=== PATIENT | female | born 1985 | race Caucasian/White ===

== ENCOUNTER → 2018-06-15 10:03 | Outpatient (CLI) | payer BC, SELFPAY ==
[2018-06-15 11:11] LABS: EXAGEN MAILED SPECIMEN
[2018-06-15 12:25] LABS: Erythrocyte Sedimentation Rate 3 mm/hr (0-20)
[2018-06-15 12:28] LABS: Absolute Neutrophil Count 1.7 X10^3/uL (2.0-7.7); Basophil# 0.02 X10^3/uL; Basophil% 0.5 % (0-1); Color, Urine Yellow (Yellow); Eosinophil# 0.07 X10^3/uL; Eosinophils% 1.8 % (0-5); Glucose, Dipstick Normal (Normal); Hematocrit 40.7 % (37-47); Hemoglobin 13.7 g/dl (12.0-15.0); Ketone-Dipstick Negative (Negative); Leukocyte Esterase-Dipstick Negative /ul (Negative); Lymphocyte % 49.7 % (19-41); Mean Corp Hgb Conc 33.7 g/gl (32-36); Mean Corpuscular Hgb 29.5 pg (27.0-32.0); Mean Corpuscular Volume 87.7 fL (81-99); Mean Platelet Vol. 11.1 fl (6.2-12.0); Monocyte# 0.18 X10^3/uL; Monocyte% 4.7 % (0-10); Neutrophil # 1.65 X10^3/uL (2.7-7.7); Neutrophil % 43.3 % (47-70); Nitrite-Dipstick Negative (Negative); Occult Blood-Urine Negative /ul (Negative); Platelet Count 238 K/mm3 (150-450); Protein-Dipstick Negative (Negative); RBC Distribution Width CV 12.7 % (11.6-14.6); RBC Distribution Width SD 40.5 fl (35.1-43.9); Red Blood Count 4.64 M/mm3 (4.2-5.4); Urine Bilirubin Dipstick Negative (Negative); Urine Clarity Clear (Clear); Urine Urobilinogen Normal (Normal); White Blood Count 3.8 K/mm3 (4.4-11.0)
[2018-06-15 12:37] LABS: POSITIVE COUNT NO; POSITIVE DIFFERENTIAL NO; POSITIVE MORPHOLOGY NO
[2018-06-15 12:38] LABS: AST(SGOT) 12 U/L (15-37); Alanine Aminotransfer ALT/SGPT 20 U/L (13-56); Albumin, Serum 4.1 g/dL (3.2-5.0); Alkaline Phosphatase 64 U/L (45-117); Anion Gap 9 (5-15); BUN 11 mg/dL (7-18); BUN/Creat Ratio 14.1 RATIO (10-20); Chloride 105 mmol/L (98-107); Creatinine, Serum 0.78 mg/dL (0.55-1.02); EST Glomerular Filtration Rate 91 mL/min (>60); Est Glom Filt Rate - Afr Amer 110 mL/min (>60); Globulin 4.1 g/dL (2.2-4.2); Glucose 99 mg/dL (74-106); Potassium 3.8 mmol/L (3.5-5.1); Protein, Total 8.2 g/dL (6.4-8.2); Sodium Level 139 mmol/L (136-145)
[2018-06-15 12:58] LABS: Protein, Urine (Random) < 6.0 mg/dL (<11.9)
[2018-06-16 11:49] LABS: HEPATITIS B SURFACE AG Negative (Negative); Hep B Surface Antibodies Reactive (.); Hep C Antibodies <0.1 s/co ratio (0.0-0.9)
== END ==
PROVIDERS: Referring Provider Internal Medicine Rheumatology; Visit Provider Internal Medicine Rheumatology
DX: M06.4 Inflammatory polyarthropathy (principal); R76.8 Other specified abnormal immunological findings in serum; K58.9 Irritable bowel syndrome, unspecified
CPT/HCPCS: 36415; 80053; 81002; 82570; 84156; 85025; 85652; 86706; 86803; 87340

== ENCOUNTER → 2018-10-09 | Outpatient (CLI) | payer BC, SELFPAY ==
[2017-04-16 11:21] VITALS: BMI 21.2
[2018-10-09 08:03] LABS: Absolute Lymphocyte Count 2.13 X10^3/ul (0.83-4.51); Absolute Neutrophil Count 1.7 X10^3/uL (2.0-7.7); Basophil# 0.02 X10^3/uL; Basophil% 0.5 % (0-1); Eosinophil# 0.14 X10^3/uL; Eosinophils% 3.3 % (0-5); Hematocrit 41.1 % (37-47); Lymphocyte # 2.13 X10^3/ul (4.0); Lymphocyte % 49.7 % (19-41); Mean Corp Hgb Conc 34.1 g/gl (32-36); Mean Corpuscular Hgb 29.9 pg (27.0-32.0); Mean Corpuscular Volume 87.8 fL (81-99); Mean Platelet Vol. 11.1 fl (6.2-12.0); Monocyte# 0.29 X10^3/uL; Monocyte% 6.8 % (0-10); Neutrophil # 1.71 X10^3/uL (2.7-7.7); Neutrophil % 39.7 % (47-70); Platelet Count 202 K/mm3 (150-450); RBC Distribution Width CV 12.8 % (11.6-14.6); RBC Distribution Width SD 40.7 fl (35.1-43.9); Red Blood Count 4.68 M/mm3 (4.2-5.4); White Blood Count 4.3 K/mm3 (4.4-11.0)
[2018-10-09 08:09] LABS: POSITIVE COUNT NO; POSITIVE DIFFERENTIAL NO; POSITIVE MORPHOLOGY NO
[2018-10-09 08:36] LABS: ALB/GLOB Ratio 1.1 RATIO (0.9-2.4); AST(SGOT) 13 U/L (15-37); Alanine Aminotransfer ALT/SGPT 17 U/L (13-56); Alkaline Phosphatase 43 U/L (45-117); Anion Gap 4 (5-15); BUN 11 mg/dL (7-18); BUN/Creat Ratio 12.5 RATIO (10-20); Chloride 109 mmol/L (98-107); Creatinine, Serum 0.88 mg/dL (0.55-1.02); EST Glomerular Filtration Rate 79 mL/min (>60); Est Glom Filt Rate - Afr Amer 95 mL/min (>60); Globulin 3.7 g/dL (2.2-4.2); Glucose 90 mg/dL (74-106); Potassium 4.3 mmol/L (3.5-5.1); Protein, Total 7.7 g/dL (6.4-8.2); Sodium Level 139 mmol/L (136-145)
== END | disposition home or self-care (01) ==
LOC: LAB 07:08
PROVIDERS: Referring Provider Internal Medicine Rheumatology; Visit Provider Internal Medicine Rheumatology
DX: M06.4 Inflammatory polyarthropathy (principal); R76.8 Other specified abnormal immunological findings in serum; K58.9 Irritable bowel syndrome, unspecified
CPT/HCPCS: 36415; 80053; 85025

== ENCOUNTER → 2019-04-04 07:19 | Outpatient (CLI) | payer BC, SELFPAY ==
[2019-04-04 10:06] LABS: Absolute Lymphocyte Count 1.29 X10^3/uL (0.83-4.51); Absolute Neutrophil Count 1.8 X10^3/uL (2.0-7.7); Basophil# 0.02 X10^3/uL; Basophil% 0.6 % (0-1); Eosinophil# 0.14 X10^3/uL; Eosinophils% 3.9 % (0-5); Hematocrit 42.8 % (37-47); Hemoglobin 14.3 g/dL (12.0-15.0); Lymphocyte # 1.29 X10^3/ul (4.0); Lymphocyte % 35.5 % (19-41); Mean Corp Hgb Conc 33.4 g/dL (32-36); Mean Corpuscular Hgb 30.3 pg (27.0-32.0); Mean Corpuscular Volume 90.7 fL (81-99); Mean Platelet Vol. 11.7 fl (6.2-12.0); Monocyte# 0.35 X10^3/uL; Monocyte% 9.6 % (0-10); NRBC Flagged by Analyzer 0 % (0-5); Neutrophil # 1.82 X10^3/uL (2.7-7.7); Neutrophil % 50.1 % (47-70); Platelet Count 198 K/mm3 (150-450); RBC Distribution Width SD 40.5 fl (35.1-43.9); Red Blood Count 4.72 M/mm3 (4.2-5.4); White Blood Count 3.6 K/mm3 (4.4-11.0)
[2019-04-04 10:19] LABS: ALB/GLOB Ratio 1.1 RATIO (0.9-2.4); AST(SGOT) 13 U/L (15-37); Alanine Aminotransfer ALT/SGPT 15 U/L (13-56); Albumin, Serum 3.9 g/dL (3.2-5.0); Alkaline Phosphatase 55 U/L (45-117); Anion Gap 4 (5-15); BUN 9 mg/dL (7-18); BUN/Creat Ratio 11.2 RATIO (10-20); Calcium,Total 9.1 mg/dL (8.5-10.1); Chloride 108 mmol/L (98-107); EST Glomerular Filtration Rate 88 mL/min (>60); Est Glom Filt Rate - Afr Amer 106 mL/min (>60); Globulin 3.6 g/dL (2.2-4.2); Glucose 86 mg/dL (74-106); Potassium 4.4 mmol/L (3.5-5.1); Protein, Total 7.5 g/dL (6.4-8.2); Sodium Level 140 mmol/L (136-145)
== END ==
PROVIDERS: Referring Provider Internal Medicine Rheumatology; Visit Provider Internal Medicine Rheumatology
DX: M06.4 Inflammatory polyarthropathy (principal); R76.8 Other specified abnormal immunological findings in serum; K58.9 Irritable bowel syndrome, unspecified
CPT/HCPCS: 36415; 80053; 85025

== ENCOUNTER → 2019-07-05 15:32 | Outpatient (CLI) | payer BC, SELFPAY ==
[2017-04-16 11:21] VITALS: BMI 21.2
[2019-07-05 17:40] LABS: Absolute Lymphocyte Count 1.71 X10^3/uL (0.83-4.51); Absolute Neutrophil Count 3.5 X10^3/uL (2.0-7.7); Basophil# 0.05 X10^3/uL; Basophil% 0.9 % (0-1); Eosinophil# 0.09 X10^3/uL; Eosinophils% 1.6 % (0-5); Hematocrit 41.7 % (37-47); Hemoglobin 13.8 g/dL (12.0-15.0); Lymphocyte # 1.71 X10^3/ul (4.0); Lymphocyte % 29.7 % (19-41); Mean Corp Hgb Conc 33.1 g/dL (32-36); Mean Corpuscular Hgb 30.1 pg (27.0-32.0); Mean Corpuscular Volume 90.8 fL (81-99); Mean Platelet Vol. 11.7 fl (6.2-12.0); Monocyte# 0.37 X10^3/uL; Monocyte% 6.4 % (0-10); NRBC Flagged by Analyzer 0 % (0-5); Neutrophil # 3.53 X10^3/uL (2.7-7.7); Neutrophil % 61.2 % (47-70); Platelet Count 241 K/mm3 (150-450); RBC Distribution Width CV 12.5 % (11.6-14.6); RBC Distribution Width SD 41.1 fl (35.1-43.9); Red Blood Count 4.59 M/mm3 (4.2-5.4); White Blood Count 5.8 K/mm3 (4.4-11.0)
[2019-07-05 17:55] LABS: ALB/GLOB Ratio 1.1 RATIO (0.9-2.4); AST(SGOT) 10 U/L (15-37); Alanine Aminotransfer ALT/SGPT 17 U/L (13-56); Albumin, Serum 4.1 g/dL (3.2-5.0); Alkaline Phosphatase 57 U/L (45-117); Anion Gap 4 (5-15); BUN 13 mg/dL (7-18); Calcium,Total 9.1 mg/dL (8.5-10.1); Chloride 108 mmol/L (98-107); Creatinine, Serum 0.81 mg/dL (0.55-1.02); EST Glomerular Filtration Rate 86 mL/min (>60); Est Glom Filt Rate - Afr Amer 104 mL/min (>60); Globulin 3.8 g/dL (2.2-4.2); Glucose 82 mg/dL (74-106); Potassium 4.4 mmol/L (3.5-5.1); Protein, Total 7.9 g/dL (6.4-8.2); Sodium Level 141 mmol/L (136-145)
== END ==
PROVIDERS: Referring Provider Internal Medicine Rheumatology; Visit Provider Internal Medicine Rheumatology
DX: M06.4 Inflammatory polyarthropathy (principal); R76.8 Other specified abnormal immunological findings in serum; K58.9 Irritable bowel syndrome, unspecified
CPT/HCPCS: 36415; 80053; 85025

== ENCOUNTER → 2019-09-15 07:04 | Outpatient (CLI) | payer BC, SELFPAY ==
[2017-04-16 11:21] VITALS: BMI 21.2
[2019-09-15 09:50] LABS: Absolute Lymphocyte Count 2.45 X10^3/uL (0.83-4.51); Absolute Neutrophil Count 1.6 X10^3/uL (2.0-7.7); Basophil# 0.05 X10^3/uL; Basophil% 1.1 % (0-1); Eosinophil# 0.12 X10^3/uL; Eosinophils% 2.6 % (0-5); Hematocrit 40.2 % (37-47); Hemoglobin 13.7 g/dL (12.0-15.0); Lymphocyte # 2.45 X10^3/ul (4.0); Lymphocyte % 53.6 % (19-41); Mean Corp Hgb Conc 34.1 g/dL (32-36); Mean Platelet Vol. 11.3 fl (6.2-12.0); Monocyte# 0.36 X10^3/uL; Monocyte% 7.9 % (0-10); NRBC Flagged by Analyzer 0 % (0-5); Neutrophil # 1.58 X10^3/uL (2.7-7.7); Neutrophil % 34.6 % (47-70); Platelet Count 200 K/mm3 (150-450); RBC Distribution Width CV 12.3 % (11.6-14.6); RBC Distribution Width SD 40.3 fl (35.1-43.9); Red Blood Count 4.42 M/mm3 (4.2-5.4); White Blood Count 4.6 K/mm3 (4.4-11.0)
== END ==
DX: D70.8 Other neutropenia (principal)
CPT/HCPCS: 36415; 85025

== ENCOUNTER → 2019-11-22 07:00 | Outpatient (CLI) | payer BC, SELFPAY ==
[2019-11-13 08:25] VITALS: BMI 21.2
[2019-11-22 10:05] LABS: Absolute Lymphocyte Count 2.17 X10^3/uL (0.83-4.51); Absolute Neutrophil Count 1.9 X10^3/uL (2.0-7.7); Basophil# 0.05 X10^3/uL; Basophil% 1.1 % (0-1); Eosinophil# 0.15 X10^3/uL; Eosinophils% 3.2 % (0-5); Hematocrit 41.3 % (37-47); Hemoglobin 13.5 g/dL (12.0-15.0); Lymphocyte # 2.17 X10^3/ul (4.0); Lymphocyte % 46.5 % (19-41); Mean Corp Hgb Conc 32.7 g/dL (32-36); Mean Corpuscular Hgb 30.3 pg (27.0-32.0); Mean Corpuscular Volume 92.8 fL (81-99); Mean Platelet Vol. 11.6 fl (6.2-12.0); Monocyte# 0.36 X10^3/uL; Monocyte% 7.7 % (0-10); NRBC Flagged by Analyzer 0 % (0-5); Neutrophil # 1.94 X10^3/uL (2.7-7.7); Neutrophil % 41.5 % (47-70); Platelet Count 257 K/mm3 (150-450); RBC Distribution Width CV 12.2 % (11.6-14.6); RBC Distribution Width SD 41.6 fl (35.1-43.9); Red Blood Count 4.45 M/mm3 (4.2-5.4); White Blood Count 4.7 K/mm3 (4.4-11.0)
== END ==
PROVIDERS: PCP Family Medicine
DX: D70.8 Other neutropenia (principal)
CPT/HCPCS: 36415; 85025

== ENCOUNTER → 2019-11-29 07:03 | Outpatient (CLI) | payer BC, SELFPAY ==
[2019-11-13 08:25] VITALS: BMI 21.2
[2019-11-29 09:55] LABS: Absolute Neutrophil Count 1.7 X10^3/uL (2.0-7.7); Basophil# 0.05 X10^3/uL; Basophil% 1.2 % (0-1); Eosinophil# 0.14 X10^3/uL; Eosinophils% 3.3 % (0-5); Hematocrit 41.1 % (37-47); Hemoglobin 13.6 g/dL (12.0-15.0); Lymphocyte % 47.6 % (19-41); Mean Corp Hgb Conc 33.1 g/dL (32-36); Mean Corpuscular Hgb 30.7 pg (27.0-32.0); Mean Corpuscular Volume 92.8 fL (81-99); Mean Platelet Vol. 11.5 fl (6.2-12.0); Monocyte# 0.27 X10^3/uL; Monocyte% 6.4 % (0-10); NRBC Flagged by Analyzer 0 % (0-5); Neutrophil # 1.73 X10^3/uL (2.7-7.7); Neutrophil % 41.3 % (47-70); Platelet Count 248 K/mm3 (150-450); RBC Distribution Width CV 12.5 % (11.6-14.6); RBC Distribution Width SD 42.5 fl (35.1-43.9); Red Blood Count 4.43 M/mm3 (4.2-5.4); White Blood Count 4.2 K/mm3 (4.4-11.0)
== END ==
PROVIDERS: PCP Family Medicine
DX: D70.8 Other neutropenia (principal)
CPT/HCPCS: 36415; 85025

== ENCOUNTER → 2019-12-06 16:36 | Outpatient (CLI) | payer BC, SELFPAY ==
[2019-11-13 08:25] VITALS: BMI 21.2
[2019-12-06 18:01] LABS: Absolute Lymphocyte Count 2.03 X10^3/uL (0.83-4.51); Absolute Neutrophil Count 2.3 X10^3/uL (2.0-7.7); Basophil# 0.04 X10^3/uL; Basophil% 0.8 % (0-1); Eosinophil# 0.15 X10^3/uL; Eosinophils% 3.1 % (0-5); Hematocrit 39.7 % (37-47); Hemoglobin 13.2 g/dL (12.0-15.0); Lymphocyte # 2.03 X10^3/ul (4.0); Lymphocyte % 42.5 % (19-41); Mean Corp Hgb Conc 33.2 g/dL (32-36); Mean Corpuscular Hgb 30.4 pg (27.0-32.0); Mean Corpuscular Volume 91.5 fL (81-99); Mean Platelet Vol. 11.5 fl (6.2-12.0); Monocyte# 0.27 X10^3/uL; Monocyte% 5.6 % (0-10); NRBC Flagged by Analyzer 0 % (0-5); Neutrophil # 2.29 X10^3/uL (2.7-7.7); Platelet Count 258 K/mm3 (150-450); RBC Distribution Width CV 12.3 % (11.6-14.6); RBC Distribution Width SD 40.7 fl (35.1-43.9); Red Blood Count 4.34 M/mm3 (4.2-5.4); White Blood Count 4.8 K/mm3 (4.4-11.0)
== END ==
PROVIDERS: PCP Family Medicine
DX: D70.8 Other neutropenia (principal)
CPT/HCPCS: 36415; 85025

== ENCOUNTER → 2020-11-06 13:15 | Outpatient (CLI) | payer BC, SELFPAY ==
[2019-11-13 08:25] VITALS: BMI 21.2
--- NOTE | 2020-11-06 13:45 | MRI_ITS ---
STUDY: MRI THORACIC SPINE WITHOUT CONTRAST REASON FOR EXAM: Female, 35 years old. DEGENERATION THORACIC,NEURITIS,SPONDYLOSIS TECHNIQUE: Standardized fat and water weighted pulse sequences were obtained in the sagittal and axial planes. COMPARISON: None. FINDINGS: Normal kyphosis of the thoracic spine. There is no substantial scoliosis. T1-2, T2-3, T3-4, T4-5, T5-6, T6-7, T7-8, T8-9, T9-10, T10-11, T11-12: Normal endplates. Normal disc hydration, heights and morphology of the corresponding intervertebral discs. Normal central canal and intervertebral neural foramina at the corresponding levels. Normal visualized thoracic cord. Normal conus medullaris that terminates at the . 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 Correlation with thyroid ultrasound is recommended. MRI/Spine Thoracic (Routine) IMPRESSION: 1. Normal unenhanced MRI examination of the thoracic spine. 2. 2.5 cm mass possibly of the left lobe of the thyroid gland and correlation with thyroid ultrasound is recommended. Electronically Signed: Eamon Lockwood MD at 10:45 EDT Tel , Service support ,
== END ==
PROVIDERS: PCP Family Medicine; Referring Provider Nurse Practitioner Family; Visit Provider Nurse Practitioner Family
DX: M51.34 Other intervertebral disc degeneration, thoracic region (principal); M54.14 Radiculopathy, thoracic region; M47.814 Spondylosis without myelopathy or radiculopathy, thoracic region
CPT/HCPCS: 72146

== ENCOUNTER → 2021-04-01 15:15 | Outpatient (CLI) | payer BC, SELFPAY ==
--- NOTE | 2021-04-01 15:35 | RAD_ITS ---
STUDY: X-RAY - PELVIS AND RIGHT HIP REASON FOR EXAM: Female, 35 years old. Pain. TECHNIQUE: 3 views of the pelvis and hip. COMPARISON: None. FINDINGS: There is a non-specific bowel gas pattern. Normal visualized soft tissue structures. Normal bilateral iliac wings, sacroiliac joints and visualized sacrum. Normal bilateral superior and inferior pubic rami. Normal pubic symphysis. Normal bilateral ischial tuberosities. Normal visualized femoral head. Normal acetabulum. Normal hip joint. RAD/HIP, UNI W/ Pelvis 2-3 Views IMPRESSION: Normal x-ray examination of the pelvis and hip. Electronically Signed: Juarez Shah MD at 10:54 EST , Service support ,
== END ==
PROVIDERS: PCP Family Medicine; Referring Provider Nurse Practitioner Family; Visit Provider Nurse Practitioner Family
DX: M25.551 Pain in right hip (principal)
CPT/HCPCS: 73502

== ENCOUNTER 2021-07-05 13:20 | Outpatient (CLI) | payer BC, SELFPAY ==
--- NOTE | 2021-07-05 13:25 | MRI_ITS ---
EXAM: MR RIGHT LOWER EXTREMITY WITHOUT INTRAVENOUS CONTRAST, HIP CLINICAL INDICATION: PAIN IN RIGHT HIP JOINT-lateral,NKI TECHNIQUE: Multiplanar and multisequence MR images of the right hip without intravenous contrast. This report was created using [employer] report generation technology. COMPARISON: xr Apr 01 2021 3:38pm FINDINGS: TENDONS: FLEXORS: Unremarkable. Intact. EXTENSORS/HAMSTRING: Unremarkable. Intact. ABDUCTORS: Unremarkable. Intact. ADDUCTORS: Unremarkable. Intact. ROTATORS: Unremarkable. Intact. MUSCLES: Unremarkable. Normal bulk and signal. FLUID: Unremarkable. No joint effusion. No trochanteric bursitis. LABRUM: Unremarkable. No evidence of a tear on this non-arthrogram exam. CARTILAGE: Unremarkable. Articular cartilage intact. BONES/JOINTS: There are no acute findings of the right hip. No femoral neck fracture. No avascular necrosis of the femoral head. No sacral insufficiency fracture. No suspicious bone marrow signal alteration. OTHER SOFT TISSUES: Unremarkable. INTRAPERITONEAL SPACE: There is trace free fluid in the pelvis. This can be physiologic. REPRODUCTIVE: The uterus is normal in appearance. MRI/Lower Ext Joint Only (Routine) IMPRESSION: 1. There is trace free fluid in the pelvis. This can be physiologic. 2. There are no acute findings of the right hip. Electronically Signed: Ryder Lieberman MD at 17:12 EST Reading Location ID and State: [facility] / [place] , Service support ,
== END 2021-07-05 23:59 | disposition home or self-care (01) ==
PROVIDERS: PCP Family Medicine; Referring Provider Nurse Practitioner Family; Visit Provider Nurse Practitioner Family
DX: M25.551 Pain in right hip (principal)
CPT/HCPCS: 73721

== ENCOUNTER → 2024-05-24 | Outpatient (CLI) | payer BC, SELFPAY ==
--- NOTE | 2024-05-24 09:29 | BI_ITS ---
MAMMOGRAPHY - BILATERAL DIAGNOSTIC REASON FOR EXAM: Female, 38 years old. Left retroareolar breast pain. PERTINENT HISTORY: Non-contributory. TECHNIQUE: Digital bilateral breast viktoria (3D mammographic acquisition) in the CC and MLO projections. 2-D mediolateral oblique (MLO) and craniocaudad (CC) views of both breasts were obtained. CAD: Full Field Digital Mammography with Computer Added Detection was performed. COMPARISON: None. Baseline examination. FINDINGS: Breast Composition: The breasts are extremely dense, which lowers the sensitivity of mammography. There are no dominant masses or suspicious calcifications. There is a densely calcified 4.5 mm nodule in the upper lateral aspect of the right breast most likely representing a fibroadenoma. Asymmetry of breast tissue is seen in the deep lateral view of the right breast on the craniocaudad projection. No other significant abnormalities are identified. BI/DIAG MAMM W/CAD, BILAT IMPRESSION: Negative diagnostic mammogram. With the patient''s history of a left retroareolar pain, targeted sonographic correlation recommended. Asymmetry of breast tissue seen in the deep lateral aspect of the right breast on the craniocaudad view. Correlation with ultrasound is recommended as well. ASSESSMENT CATEGORY: BIRADS Category 0: Incomplete. Need additional imaging evaluation. A letter regarding these results will be sent to the patient by the facility within 30 days. Approximately 10% of breast cancers are not detected by mammography. A normal mammogram should not delay biopsy of a clinically suspicious abnormality. Electronically Signed: Ramon Muse MD at 10:17 EST ,
--- NOTE | 2024-05-24 09:29 | US_ITS ---
STUDY: ULTRASOUND BREAST - LEFT REASON FOR EXAM: Female, 38 years old. Left breast pain. TECHNIQUE: Axial and longitudinal images of the LEFT breast were performed with a high resolution ultrasound transducer. # OF IMAGES: 33 COMPARISON: Comparison is made with prior mammogram done earlier in the day. FINDINGS: LEFT Breast: The upper lateral aspect of the left breast was examined with ultrasound. No sonographic abnormality is seen. IMPRESSION: No sonographic abnormality is seen. ASSESSMENT CATEGORY: BIRADS Category 1: Negative. A letter regarding these results will be sent to the patient by the facility within 30 days. Electronically Signed: Ramon Muse MD at 14:51 EST , STUDY: ULTRASOUND BREAST - RIGHT REASON FOR EXAM: Female, 38 years old. Asymmetry of breast tissue in the lateral the portion of the right breast. TECHNIQUE: Axial and longitudinal images of the RIGHT breast were performed with a high resolution ultrasound transducer. # OF IMAGES: 33 COMPARISON: Comparison is made with prior mammogram done earlier today. FINDINGS: RIGHT Breast: The lateral aspect of the right breast was examined with ultrasound. There is a 4 mm x 4 mm x 3 mm calcified cyst at the 10:00 position of the breast at 3 cm from the nipple. US/Breast Limited Unilateral IMPRESSION: 4 mm x 4 mm x 3 mm calcified cyst at the 10:00 position of the breast at 3 cm from the nipple. ASSESSMENT CATEGORY: BIRADS Category 2: Benign. A letter regarding these results will be sent to the patient by the facility within 30 days. Electronically Signed: Ramon Muse MD at 14:52 EST ,
== END | disposition home or self-care (01) ==
PROVIDERS: PCP Family Medicine
DX: N64.4 Mastodynia (principal); R92.8 Other abnormal and inconclusive findings on diagnostic imaging of breast
CPT/HCPCS: 76642; 77062; 77066; G0279

== ENCOUNTER → 2024-10-13 | Outpatient (CLI) | payer BC, SELFPAY ==
--- NOTE | 2024-10-13 09:57 | US_ITS ---
PROCEDURE: HEAD/NECK SOFT TISSUE 10/13/2024 REASON FOR EXAM: MASS OF HEAD TECHNIQUE: Targeted soft tissue ultrasound of the right scalp COMPARISON: None US/Head/Neck Soft Tissue IMPRESSION: Within the region of interest of the right scalp, there is a heterogenous, avas cular structure measuring 2.2 x 1.8 x 0.4 cm with possible tract to skin surface. Reading Location: [id number]
--- OUTSIDE RECORDS SUMMARY | 2024-10-13 19:42 | XMS RPT_ITS | CCD ---
Author Organization [facility] Informat ion Partnership [facility] Care Team Providers Care Tailings Worker Name Role Phone MEG CAMPBELL M Unavailable Unavailable DAT, MEG M Unavailable Unavailable PLEAT, LESTER Attending Unavailable LISHNEVSKI, YOLIE Referring Unavailable LISHNEVSKI, YOLIE Primary Care Unavailable PLEAT, LESTER Attending Unavailable LISHNEVSKI, YOLIE Referring Unavailable LISHNEVSKI, YOLIE Primary Care Unavailable PLEAT, LESTRE Attending Unavailable LISHNEVSKI, YOLIE Referring Unavailable LISHNEVSKI, YOLIE Primary Care Unavailable Lishnevski, Yolie Primary Care Provider Maximino, Yolie Primary Care Provider Maximino THOMPSON, Yolie Primary Care Provider Maximino THOMPSON, Yolie Primary Care Provider Maximino Yolie Primary Care Provider Maximino THOMPSON, Yolie Primary Care Provider Maximino THOMPSON, Yolie Primary Care Provider PROVIDER, UNKNOWN Referring Unavailable Lishnevski, Yolie Primary Care Unavailable Jaycee Zhang Attending Unavailable PROVIDER, UNKNOWN Referring Unavailable Lishnevski, Yolie Primary Care Unavailable Jaycee Zhang Attending Unavailable Maximino THOMPSON, Yolie Primary Care Provider Maximino THOMPSON, Yolie Primary Care Provider Ino Martinez DO Unavailable Maximino THOMPSON, Yolie Primary Care Provider Ino Martinez DO Unavailable [phone] Yolie Stanton MD Primary Care Provider Maximino THOMPSON, Yolie Primary Care Provider Ino Martinez DO Unavailable MAXIMINO, YOLIE Primary Care Unavailable JAYCEE ZHANG Attending Unavailable JAYCEE ZHANG Referring Unavailable LISZANAI, YOLIE Primary Care Unavailable INO MARTINEZ Attending Unavailable ALPESH LONGORIA Attending Unavailable MAXIMINO, YOLIE Primary Care Unavailable LISMASON, YOLIE Primary Care Unavailable COTY HANEY Attending Unavailable MAXIMINO, YOLIE Primary Care Unavailable Maximino THOMPSON, Dr. Urbano Primary Care Provider ALPESH LONGORIA Attending Provider ALPESH LONGORIA Referring Provider Miguel THOMPSON, Dr. Betts Attending Provider Carolyne THOMPSON, Dr. Kim Primary Care Provider Carolyne THOMPSON, Dr. Kim Referring Provider Dr. Ángel Rosario MD Attending Provider Julio Barfield Referring Unavailable Alpesh Rivera Attending Unavailable Julio Barfield Primary Care Unavailable Julio Barfield Referring Unavailable Alpesh iRvera Attending Unavailable Julio Barfield Primary Care Unavailable Julio Barfield Referring Unavailable Ángel Rosario Attending Unavailable Julio Barfield Primary Care Unavailable Rj Cornelius Primary Care Unavailable Rj Cornelius Referring Unavailable Alpesh Rivera Attending Unavailable Yolie Stanton Primary Care Unavailable TARA SHAFFER Attending Unavailable TARA SHAFFER Referring Unavailable Ángel Rosario Attending Unavailable Julio Barfield Primary Care Unavailable Ángel Rosario Referring Unavailable Julio Barfield Referring Unavailable Alpesh Rivera Attending Unavailable Julio Barfield Primary Care Unavailable Allergies Allergy Classification Reported Allergen(s) Allergy Type Date of Onset Reaction(s) Facility (12 sources) Seasonal allergy; Translations: [SEASONAL ALLERGIES] Allergy to substance 04-24-2022 Itching [facility] Work Phone: Medications Current Medications Medication Drug Class(es) Dates Sig (Normalized) Sig (Original) biotin 2.5 mg oral capsule (12 sources) take 1 capsule by mouth once daily Biotin 2500 MCG CAPS Take 2,500 mcg by mouth daily 0 Active calcium phosphate dibas/vit D3 (VITAMIN D, WITH CALCIUM, ORAL) (5 sources) calcium phosphat e dibas/vit D3 (VITAMIN D, WITH CALCIUM, ORAL) Take by mouth. Active Cetirizine (3 sources) Histamine-1 Receptor Antagonist Cetirizine HCl (ALL DAY ALLERGY PO) Take by mouth 0 Active cholecalciferol 0.125 mg oral capsule (2 sources) Vitamin D Start: 07-07-2024 take 1 capsule by mouth once daily Cholecalciferol (Vitamin D3) 125 mcg (5,000 unit) capsule Active 125 ug PO daily July 07, 2024 1:00am chondroitin sulfates 400 mg / glucosamine hydrochloride 500 mg oral capsule (20 sources) Glucosamine-Alan droi t-Vit C-Mn 500-400 mg cap Active take 1 tablet by miryam th three times daily Glucosamine-Chondroitin 250-200 MG capsu le Take 1 tablet by mouth 3 times daily. Active cyclobenzaprine hydrochloride 10 mg oral tablet (1 source) Muscle Relaxant Start: 05-01-2020 End: 05-11-2020 take 1 tablet by mouth once daily as needed for muscle spasms cyclobenzaprine (FLEXERIL) 10 MG tablet Indications: Acute bilateral thoracic back pain , Muscle pain Take 1 tablet by mouth nightly as needed for Muscle spasms 10 tablet 1 05/01/2020 05/11/2020 Active Ethinyl Estradiol / Ferrous fumarate / Norethindrone (16 sources) Estrogen Start: 06-30-2024 Norethindrn A-E Estradiol-Iron (CHAVA 24 FE) 1 mg-20 mcg (24)/75 mg (4) Indications: Dysmenorrhea , Surveillance for control, oral contraceptives FOR CONTINUOUS USE - take only active pills 112 tablet 5 06/30/2024 Active Start: 04-29-2024 End: 06-30-2024 Norethindrn A-E Estradiol-Ir on (CHAVA 24 FE) 1 mg-20 mcg (24)/75 mg (4) Indications: Dysmenorrhea , Surveillance for control, oral contraceptives FOR CONTINUOUS USE - take only active pills 112 tablet 04/29/2024 06/30/2024 Discontinued Start: 04-29-2024 Norethindrn A- E Estradiol-Iron (CHAVA 24 FE) 1 mg-20 mcg (24)/75 mg (4) Indications: Dysmenorrhea , Surveillance for control, oral contraceptives FOR CONTINUOUS USE - take only active pills 112 tablet 04/29/2024 Active Start: 04-24-2023 End: 04-28-2024 Norethindrn A-E Estradiol-Ir on (CHAVA 24 FE) 1 mg-20 mcg (24)/75 mg (4) Indications: Dysmenorrhea , Surveillance for control, oral contraceptives FOR CONTINUOUS USE - take only active pills 112 tablet 5 04/24/2023 04/28/2024 Discontinued Start: 04-24-2023 Norethindrn A- E Estradiol-Iron (CHAVA 24 FE) 1 mg-20 mcg (24)/75 mg (4) Indications: Dysmenorrhea , Surveillance for control, oral contraceptives FOR CONTINUOUS USE - take only active pills 112 tablet 5 04/24/2023 Active Start: 04-24-2022 Norethindrn A- E Estradiol-Iron (CHAVA 24 FE) 1 mg-20 mcg (24)/75 mg (4) Indications: Dysmenorrhea , Surveillance for control, oral contraceptives FOR CONTINUOUS USE - take only active pills 112 tablet 5 04/24/2022 Active Start: 04-22-2022 End: 04-24-2022 Norethindrn A-E Estradiol-Ir on (CHAVA 24 FE) 1 mg-20 mcg (24)/75 mg (4) take 1 tablet by mouth once daily (ACTIVE PILLS ONLY) START NEW PACK EVERY 24 DAYS 84 tablet 5 04/22/2022 04/24/2022 Discontinued Start: 01-30-2021 Norethindrn A- E Estradiol-Iron (BLISOVI 24 FE) 1 mg-20 mcg (24)/75 mg (4) Take 1 tablet by mouth once daily. active pills only, new pack q 24 days 28 tablet 11 01/30/2021 Active Comment on above: Take 1 tablet by miryam th once daily. active pills only, new pack q 24 days FOR CONTINUOUS USE - take only active pills take 1 tablet by miryam th once daily (ACTIVE PILLS ONLY) START NEW PACK EVERY 24 DAYS ethinyl estradiol 0.03 mg / norethindrone acetate 1.5 mg oral tablet (20 sources) Estrogen Start: 07-07-2024 Norethindrone Ac-Eth Estradiol (Chava .09/30 (21)) 1.5-30 mg-mcg tablet Active 1 {tbl} PO daily July 07, 2024 1:00am norethindrone ac -eth estradio (Shannon ) 1.5-30 MG-MCG tablet tablet 1 tablet daily. Active etodolac 400 mg oral tablet (3 sources) Nonsteroidal Anti-inflammatory Drug Start: 05-01-2020 End: 05-16-2020 take 1 tablet by mouth twice daily as needed for pain etodolac (LODINE) 400 MG tablet Indications: Acute bilateral thoracic back pain , Muscle pain Take 1 tablet by mouth 2 times daily as needed (pain) 30 tablet 1 05/01/2020 Active glucosamine 500 mg oral tablet (2 sources) Start: 07-07-2024 take 1 tablet by mouth once daily Glucosamine Hcl 500 mg tablet Active 500 mg PO daily July 07, 2024 1:00am administer with a meal hydroxychloroquine sulfate 200 mg oral tablet (20 sources) Antimalarial, Antirheumatic Agent Start: 04-11-2019 take 1 tablet by mouth once daily Hydroxychloroquine (Plaquenil) 200 mg tablet Active 200 mg PO DAILY November 13, 2019 12:00am Hydroxychloroqui ne Sulfate (PLAQUENIL PO) Take by mouth 0 Active Comment on above: Take 1 tablet by miryam th once daily. loratadine 10 mg oral tablet (18 sources) loratadine (Clar itin) 10 MG tablet Take by mouth. Active medroxyPROGESTERone acetate 10 mg oral tablet (2 sources) Progestin Start : 06-15 medroxyPROGESTERone (PROVERA) 10 MG tablet naproxen 500 mg oral tablet (3 sources) Nonsteroidal Anti-inflammatory Drug Start : 05-30 End: 06-29 take 1 tablet by mouth twice daily at mealtime naproxen (NAPROSYN) 500 MG tablet Take 1 tablet by mouth 2 times daily (with meals) 60 tablet 0 05/30/2020 Active omeprazole 40 mg delayed release oral capsule (20 sources) Proton Pump Inhibitor Start : 10-13 omeprazole (PRILOSEC) 40 mg capsule as needed. 10/13/2020 Active take 1 capsule by mo uth once daily before breakfast omeprazole (PriLOSEC) [address] capsule Take 20 mg by mouth every morning (before breakfast). Do not crush or chew. Active predniSONE 10 mg oral tablet (20 sources) Start: 04-11-2019 predniSONE (DE LTASONE) 10 mg tablet Take 1 tablet by mouth as needed. 04/11/2019 Active Comment on above: Take 1 tablet by miryam th as needed. Ohqe-Vsmj-Jqk-Yuc-Jami-C ham-Hor (Tumersaid) [phone] mg tablet (2 sources) Start: 07-07-2024 Giiu-Yunu-Vbi- Yuc-Jami-C ham-Hor (Tumersaid) [phone] mg tablet Active {tbl} PO July 07, 2024 1:00am Turmeric extract (17 sources) TURMERIC ORAL Ta ke by mouth. Active take 1 capsule by mouth once victor hugo ly Turmeric 500 MG CAPS Take 500 mg by mouth daily 0 Active take 1 capsule by mouth once victor hugo ly Turmeric 500 MG CAPS Take 500 mg by mouth daily 0 Active Completed/Discontinued Medications Medication Drug Class(es) Dates Sig (Normalized) Sig (Original) acetaminophen 500 mg oral tablet (14 sources) Start: 05-22-2022 End: 05-22-2022 acetaminophen (Tylenol) tablet 1,000 mg take 1 tablet by miryam th every four hours as needed acetaminophen (TYLENOL) 500 MG tablet Ta ke 500 mg by mouth every 4 hours as needed 0 Active take 1 tablet by mouth once larry y acetaminophen (TYLENOL) 500 MG tablet Take 500 mg by mouth daily 0 Active amoxicillin 875 mg oral tablet (2 sources) Penicillin-class Antibacterial Start: 11-13-2019 End: 11-18-2019 take 1 tablet by mouth twice daily Amoxicillin 875 mg tablet Discontinued 875 mg PO TWICE A DAY 10 5 November 13, 2019 12:00am November 17, 2019 12:00am November 18, 2019 12:03am amoxicillin 500 mg / clavulanate 125 mg oral tablet (2 sources) Penicillin-class Antibacterial Start: 07-04-2023 End: 07-11-2023 Amoxicillin-Pot Clavulanate (Augmentin) 500-125 mg tablet Discontinued 1 {tbl} PO THREE TIMES A DAY 21 11July 04, 2023 1:00am July 10, 2023 1:00am July 11, 2023 1:17am aprepitant 40 mg oral capsule (2 sources) Substance P/Neurokinin-1 Receptor Antagonist Start: 05-22-2022 End: 05-22-2022 aprepitant (Emend) capsule 40 mg Start: 05-22-2022 End: 05-22-2022 aprepitant (Emend) capsule 4 0 mg benzonatate 200 mg oral capsule (2 sources) Non-narcotic Antitussive Start: 04-07-2023 End: 05-08-2023 take 1 capsule by mouth three times daily as needed for cough Benzonatate 200 mg capsule Discontinued 200 mg PO THREE TIMES A DAY as needed for cough April 07, 2023 1:00am May 08, 2023 5:42pm calcium chloride 0.0014 meq/ml / potassium chloride 0.004 meq/ml / sodium chloride 0.103 meq/ml / sodium lactate 0.028 meq/ml injectable solution (4 sources) Start: 05-22-2022 End: 05-22-2022 lactated ringers infusion dexamethasone phosphate 10 mg/ml injectable solution (1 source) Corticosteroid Start: 05-22-2022 End: 05-22-2022 dexAMETHasone (Decadron) injection 1 ml diphenhydrAMINE hydrochloride 50 mg/ml cartridge (2 sources) Histamine-1 Receptor Antagonist Start: 05-22-2022 End: 05-22-2022 diphenhydrAMINE (BENADryl) injection 12.5 mg docusate sodium 100 mg oral capsule (20 sources) Start: 02-23-2017 End: 11-13-2019 take 1 capsule by mouth twice daily Docusate Sodium 100 MG capsule Discontinued 100 mg PO TWICE A DAY April 15, 2017 4:45pm November 13, 2019 8:23am docusate sodium (Colace) 50 MG capsule Take by mouth 2 times daily. Active Comment on above: Take 1 capsule by [facility] twice daily. doxycycline hyclate 100 mg oral capsule (2 sources) Tetracycline-class Drug Start: 05-08-19 End: 05-18-19 take 1 capsule by mouth twice daily Doxycycline Hyclate 100 mg capsule Discontinued 100 mg PO TWICE A DAY 20 02May 08, 2023 1:00am May 17, 2023 1:00am May 18, 2023 1:04am 1 ml ePHEDrine sulfate 50 mg/ml injection (1 source) alpha-Adrenergic Agonist, beta-Adrenergic Agonist, Norepinephrine Releasing Agent Start: 05-22-19 End: 05-22-19 ePHEDrine injection 10 ml esmolol hydrochloride 10 mg/ml injection (1 source) beta-Adrenergic Carmen Start: 05-22-19 End: 05-22-19 esmolol (Brevibloc) injection famotidine 20 mg oral tablet (4 sources) Histamine-2 Receptor Antagonist Start: 05-22-19 End: 05-22-19 famotidine (Pepcid) tablet 20 mg Start: 12-29-2016 End: 02-21-2017 take 1 tablet by mouth twice daily Famotidine 20 MG tablet Discontinued 20 mg PO TWICE A DAY December 29, 2016 12:00am February 21, 2017 2:28am 1 ml glycopyrrolate 0.2 mg/ml injection (1 source) Start: 05-22-2022 End: 05-22-2022 glycopyrrolate (Robinul) injection 1 ml HYDROmorphone hydrochloride 1 mg/ml cartridge (4 sources) Opioid Agonist Start: 05-22-2022 End: 05-22-2022 HYDROmorphone (Dilaudid) injection 0.5 mg Start: 05-22-2022 End: 05-22-2022 HYDROmorphone (Dilaudid) inj ection 0.25 mg ibuprofen 200 mg oral tablet (10 sources) Nonsteroidal Anti-inflammatory Drug End: 12-10-2022 ibuprofen 200 MG tablet Take by mouth. 0 12/10/2022 Discontinued (Therapy completed) 1 ml ketorolac tromethamine 15 mg/ml cartridge (1 source) Nonsteroidal Anti-inflammatory Drug, Cyclooxygenase Inhibitor Start: 05-22-2022 End: 05-22-2022 ketorolac (Toradol) injection labetalol (Normodyne,Trandate) injection 5 mg (2 sources) Start: 05-22-2022 End: 05-22-2022 labetalol (Normodyne,Trandate ) injection 5 mg 10 ml lidocaine hydrochloride 20 mg/ml injection (3 sources) Antiarrhythmic, Amide Local Anesthetic Start: 05-22-2022 End: 05-22-2022 lidocaine PF (Xylocaine) 2 % injection Start: 02-18-2022 End: 02-18-2022 lidocaine PF 1 % injection Start: 12-14-2019 Lidocaine 3 % CREA Indications: Lumbar back pain Apply bid over the affected area 1 Tube 0 12/14/2019 Active 1 ml LORazepam 2 mg/ml injection (2 sources) Benzodiazepine Start: 05-22-2022 End: 05-22-2022 LORazepam (Ativan) injection 0.5 mg 1 ml meperidine hydrochloride 25 mg/ml cartridge (2 sources) Opioid Agonist Start: 05-22-2022 End: 05-22-2022 meperidine (Demerol) injection 12.5 mg 2 ml metoclopramide 5 mg/ml prefilled syringe (3 sources) Dopamine-2 Receptor Antagonist Start: 05-22-2022 End: 05-22-2022 metoclopramide (Reglan) injection 5 mg Start: 05-22-2022 End: 05-22-2022 metoclopramide (Reglan) inje ction 5 ml midazolam 1 mg/ml injection (1 source) Benzodiazepine Start: 05-22-2022 End: 05-22-2022 midazolam (Versed) injection montelukast 10 mg oral tablet (2 sources) Leukotriene Receptor Antagonist Start: 05-08-2023 End: 10-07-2024 take 1 tablet by mouth once daily in the evening Montelukast (Singulair) 10 mg tablet Discontinued 10 mg PO EVERY EVENING May 08, 2023 1:00am October 07, 2024 9:31am 2 ml ondansetron 2 mg/ml injection (3 sources) Serotonin-3 Receptor Antagonist Start: 05-22-2022 End: 05-22-2022 ondansetron (Zofran) injection 4 mg Start: 05-22-2022 End: 05-22-2022 ondansetron (Zofran) injecti on 4 mg Start: 05-22-2022 End: 05-22-2022 ondansetron (Zofran) injecti on oxyCODONE (2 sources) Opioid Agonist Start: 05-22-2022 End: 01-19-2023 oxyCODONE (Roxicodone) immediate release tablet 5 mg Phenylephrine HCl (Pressors) 1 MG/10ML injection (1 source) Start: 05-22-2022 End: 05-22-2022 Phenylephrine HCl (Pressors) 1 MG/10ML injection polyethylene glycol 3350 07700 mg powder for oral solution (2 sources) Osmotic Laxative Start: 04-15-2017 End: 11-13-2019 take 17 g by mouth every other day Polyethylene Glycol 3350 17 GM packet Discontinued 17 g PO EVERY OTHER DAY April 15, 2017 1:00am November 13, 2019 8:23am Vit,[id number]-Tsk ic 1 TABLET tablet (2 sources) Start: 08-27-2016 End: 11-13-2019 take 1 tablet by mouth once daily Vit,Myvg14-[id number]-Iv lic 1 TABLET tablet Discontinued 1 {tbl} PO DAILY August 27, 2016 12:00am November 13, 2019 8:23am 50 ml propofol 10 mg/ml injection (1 source) General Anesthetic Start: 05-22-2022 End: 05-22-2022 propofol (Diprivan) 10 mg/mL infusion remifentanil 1 mg injection (1 source) Opioid Agonist Start: 05-22-2022 End: 05-22-2022 remifentanil (Ultiva) injection rocuronium bromide 10 mg/ml injectable solution (1 source) Nondepolarizing Neuromuscular Carmen Start: 05-22-2022 End: 05-22-2022 rocuronium (ZeMuron) injection 5 ml sodium chloride 9 mg/ml injection (10 sources) Start: 05-22-2022 End: 05-22-2022 sodium chloride 0.9 % infusion Start: 05-22-2022 End: 05-22-2022 sodium chloride 0.9% (NS) fl ush 10 mL VITAFOL GUMMIES 3.33 mg iron - 0.33 mg chew (12 sources) Start: 01-01-2017 End: 06-30-2024 VITAFOL GUMMIES 3.33 mg iron - 0.33 mg chew TAKE 3 GUMMIES BY MOUTH EVERY DAY 7 01/01/2017 06/30/2024 Discontinued Start: 01-01-2017 VITAFOL GUMMIE S 3.33 mg iron- 0.33 mg chew TAKE 3 GUMMIES BY MOUTH EVERY DAY 7 01/01/2017 Active Comment on above: TAKE 3 GUMMIES BY MO UTH EVERY DAY Problems Active Problems Problem Classification Problem Date Documented Da te Episodic/Chronic Acute bronchitis (2 sources) Acute bronchitis; Translations: [Acute bronchitis, unspecified] 05-08-2023 Episodic Contraceptive and procreative management (3 sources) Oral contraception; Translations: [Encounter for surveillance of contraceptive pills] Episodic Diseases of white blood cells (20 sources) Neutropenic disorder; 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] Onset: 05-20-2018 05-20-2018 Chronic Genitourinary symptoms and ill-defined conditions (1 source) Urinary symptoms ; Translations: [Unspecified symptoms and signs involving the genitourinary system] Episodic Immunizations and screening for infectious disease (1 source) Patient encounter status; Translations: [Encounter for screening for human papillomavirus (HPV)] Episodic Menstrual disorders (3 sources) Dysmenorrhea; Translations: [Dysmenorrhea, unspecified] Chronic Neoplasms of unspecified nature or uncertain behavior (12 sources) Neoplasm of uncertain behavior of thyroid gland; Translations: [Neoplasm of uncertain behavior of thyroid gland] Onset: 02-18-2022 Episodic Osteoarthritis (13 sources) Arthritis; Translations: [Unspecified osteoarthritis, unspecified site] Onset: 05-04-2018 06-15-2020 Chronic Other and ill-defined heart disease (20 sources) Hyperkinetic heart disease; 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] Onset: 01-10-2008 09-20-2019 Chronic Other connective tissue disease (1 source) Muscle pain; Translations: [Muscle pain] Episodic Other gastrointestinal disorders (20 sources) Irritable bowel syndrome; Translations: [Irritable bowel syndrome without diarrhea] Onset: 09-20-2019 09-20-2019 Chronic Other screening for suspected conditions (not mental disorders or infectious disease) (2 sources) Cancer cervix screening status; Translations: [Encounter for screening for malignant neoplasm of cervix] Episodic Other skin disorders (2 sources) Dystrophia unguium; Translations: [Nail dystrophy] 04-07-2023 Episodic Other skin disorders (1 source) Pilar cyst of scalp; Translations: [Pilar cyst] 07-01-2024 Episodic Other skin disorders (9 sources) Mass of head; Translations: [Localized swelling, mass and lump, head] Episodic Other skin disorders (2 sources) Localized swelling, mass and lump, head; Translations: [Localized swelling, mass and lump, head] Onset: 10-07-2024 Episodic Otitis media and related conditions (2 sources) Acute otitis media; Translations: [Otitis media, unspecified, unspecified ear] 07-04-2023 Episodic Spondylosis; intervertebral disc disorders; other back problems (2 sources) Lumbar radiculopathy; Translations: [Acute thoracic back pain] Episodic Thyroid disorders (4 sources) Thyroid nodule; Translations: [Nontoxic single thyroid nodule] Onset: 02-04-2022 Chronic Unclassified (2 sources) R22.0 - Localized swelling, mass and lump, head Past or Other Problems Problem Classification Problem Date Documented Date Episodic/Chronic Blindness and vision defects (20 sources) Myopia, bilateral; Translations: [Bilateral myopia of eyes] Onset: 05-02-2013 Resolved: 08-20-2016 09-20-2019 Episodic Medical examination/evaluatio n (1 source) Encounter for other preprocedural examination; Translations: [Encounter for other preprocedural examination] Onset: 06-08-2017 Episodic Nonmalignant breast conditions (2 sources) Mastodynia; Translations: [Mastodynia] Onset: 07-01-2024 05-09-2024 Episodic Other circulatory disease (7 sources) Orthostatic hypotension; Translations: [Orthostatic hypotension] Resolved: 08-20-2016 08-20-2016 Episodic Other female genital disorders (1 source) Other specified noninflammatory disorders of vagina; Translations: [Other specified noninflammatory disorders of vagina] Onset: 06-08-2017 Episodic Other female genital disorders (13 sources) Vaginal granulation tissue; Translations: [Other specified noninflammatory disorders of vagina] Onset: 05-20-2017 06-08-2017 Episodic Other female genital disorders (13 sources) Vaginal scar; Translations: [Other specified noninflammatory disorders of vagina] Onset: 05-20-2017 06-08-2017 Episodic Other nervous system disorders (1 source) Other acute postprocedural pain; Translations: [Other acute postprocedural pain] Onset: 06-08-2017 Episodic Other and delivery including normal (7 sources) Normal ; Translations: [Encounter for supervision of other normal , second trimester] Onset: 08-20-2016 Resolved: 02-27-2017 02-27-2017 Episodic Syncope (7 sources) Syncope and collapse; Translations: [Syncope and collapse] Onset: 01-10-2008 Resolved: 02-05-2016 02-05-2016 Episodic Results Test Name Value Interpretation Reference Range Facility Plastic Surgery Visit Report on 10-07-2024 Plastic Surgery Visit Report [facility] Plastic Reconstructive Surgery [address], [address] [place] [address] OFFICE VISIT Date of Service: 10/07/24 MR#: [id number] Acct: [id number] Name: CAROLINE ALLRED Rep #: [id number] : 1985 Provider: Dr. Ángel Rosario MD Age/Sex: 38/F Location: [facility] Status: Signed Intake Vital Signs 3 07/07/24 15:01 10/07/24 09:31 Height 5 ft 4 in Weight: 112 lb 115 lb BMI 19.2 BP 134/91 H 118/80 Blood Pressure Location Rt brachial Rt brachial Position Sitting Sitting Respiration 17 18 Pulse 71 64 Pulse Source Monitor Monitor Temp 97.6 F L Pulse Oximetry (%) 99 98 Oxygen Delivery Method room air room air Intake Visit Reasons: MASS ON HEAD Chief Complaint: Mass on head Allergies No Known Allergies Allergy (Verified 10/07/24 09:24) Medications 3 ???Medication ???Instructions ???Recorded ???Confirmed ???Type hydroxychloroquine 200 mg tablet 200 mg PO DAILY 11/13/19 10/07/24 History (Plaquenil) cholecalciferol (vitamin D3) 125 125 mcg PO QDAY 07/07/24 10/07/24 History mcg (5,000 unit) capsule glucosamine HCl 500 mg tablet 500 mg PO QDAY 07/07/24 10/07/24 H istory norethindrone acetate 1.5 1 tab PO QDAY 07/07/24 10/07/24 Hi story mg-ethinyl estradiol 30 mcg tablet (Chava) [id number]-tfwwqu-iff-yuc-jami -perez-horse tab PO 07/07/24 10/07/24 His tory 100 mg-100 mg-100 mg-125 mg tab (Tumersaid) [facility] Medical History Neutropenia Acute otitis media Seasonal allergies Hernia Knee pain Arthritis Shoulder pain History of hemorrhoids Surgical History History of cholecystectomy Social History Smoking Status: Never smoker HPI MASS ON HEAD Details: Caroline Allred is a delightful 38-year-old female who has a history of a lump behind her right ear that has been present for approximately 4 months. General surgery saw her in clinic and believed to be an epidermal inclusion cyst. In the office procedure room, they attempted removal of the cyst and patient had shooting electrical pain, and there was some concern that there was a nerve adjacent to the cyst that was within the surgical field, and therefore the procedure was aborted. Patient healed well after the procedure, and was referred to me for reevaluation. Today she reports a burning pain on the right lateral head superior to the incision. She reports that has gotten better. She has not had any draining from the cystic region. Patient would like it removed if possible. She is not a smoker No personal or family history of bleeding or clotting problems. Patient does have a history of reportedly having thyroid cancer which was surgically removed by a partial thyroidectomy by an ear nose and throat physician. She reports that it was quite isolated and she did not require any further treatment other than resection. She did not have any lymph node sampling. She sees her ear nose and throat physician every February, and there have been no recent updates or problems with regards to her thyroid. ROS General General: Yes good health; No fatigue, fever(s) or weight loss HENMT HENMT: No rhinitis, sore throat/mouth sore, nasal congestion, contacts or glaucoma Endo Endocrine: No thyroid disease, polydipsia, heat intolerance, cold intolerance, hepatitis or excessive urine Skin Skin: No Bleeding, bruising, changing moles or suspicious lesion Musc Musculoskeletal: Yes joint pain, joint stiffness and back pain; No muscle weakness, osteoarthritis or Muscle aches/ myalgia Neuro Neurological: No headache(s), No lightheadedness and No numbness Cardio Cardiovascular: No chest pain, pacemaker, fatigue or shortness of breat with exertion Psych Psychiatric: No depression, claustrophobia or anxiety Resp Respiratory: No spitting up, shortness of breath, sleep apnea, asthma, emphysema, TB, Cough or Smoker Gastro Gastrointestinal: No diarrhea, constipation, blood in stool, nausea, vomiting or abdominal bloating Long Hematologic: No anemia, No bleeding and No abnormal bleeding Genitourinary: No urinary frequency, blood in urine or incontinence Exam Details 2 cm incision on the right posterior scalp. Healed well. No fluctuance or drainage No cervical lymphadenopathy on my exam. Scars are well-healed. No palpable thyroid masses. Coding Level of Care Code Off vis,new,level 3 Diagnoses Mass of head R22.0 Assessment and Plan (No Qualifiers) Assessment and Plan (1) Mass of head: Status: Acute Plan: I spoke to the patient extensively about the mass/cyst. We talked about options for removal in the operati (more content not included)... Normal [facility] Surgery Visit Reporton 09-20 Surgery Visit Report [facility] [address] [place] [address] OFFICE VISIT Date of Service: 09/20/24 MR#: [id number] Acct: [id number] Name: CAROLINE ALLRED Rep #: [id number] : 1985 Provider: Dr. Alpesh leal MD Age/Sex: 38/F Location: [facility] Status: Signed Intake Vital Signs 07/07/24 15:01 Height 5 ft 4 in Weight: 112 lb BMI 19.2 BP 134/91 H Blood Pressure Location Rt brachial Position Sitting Respiration 17 Pulse 71 Pulse Source Monitor Temp 97.6 F L Pulse Oximetry (%) 99 Oxygen Delivery Method room air Intake Visit Reasons: WOUND CHECK S/P PARTIAL EXCISION OF MASS Chief Complaint: wound check Is patient in pain?: No Allergies No Known Allergies Allergy (Verified 09/20/24 08:13) Medications ???Medication ???Instructions ???Recorded ???Confirmed ???Type hydroxychloroquine 200 mg tablet 200 mg PO DAILY 11/13/19 09/20/24 History (Plaquenil) montelukast 10 mg tablet 10 mg PO QPM #20 tabs 05/08/23 Rx (Singulair) cholecalciferol (vitamin D3) 125 125 mcg PO QDAY 07/07/24 09/20/24 History mcg (5,000 unit) capsule glucosamine HCl 500 mg tablet 500 mg PO QDAY 07/07/24 09/20/24 H istory norethindrone acetate 1.5 1 tab PO QDAY 07/07/24 09/20/24 Hi story mg-ethinyl estradiol 30 mcg tablet (Chava) ufznzijd-hsdwig-fmi-yuc-jami -perez-horse tab PO 07/07/24 09/20/24 His tory 100 mg-100 mg-100 mg-125 mg tab (Tumersaid) Subjective Details: Patient is having some pain superior to the incision Objective Details: Incision is healing well Coding Level of Care Code Global Post Op Diagnoses Mass of head R22.0 [facility] Medical History Neutropenia Acute otitis media Seasonal allergies Hernia Knee pain Arthritis Shoulder pain History of hemorrhoids Surgical History History of cholecystectomy Social History Smoking Status: Never smoker Assessment and Plan (No Qualifiers) Assessment and Plan (1) Mass of head: Status: Acute Plan: I attempted to remove a subcutaneous mass off of the patient's right posterior scalp. I was unable to remove the mass and she was having pain that was shooting up her scalp. At this time I aborted the procedure and I will refer her to plastic surgery. Currently she is still having pain superior to the incision. She is seeing plastic surgery in October. Alpesh Rivera MD Pager: [facility] [address] [place] [phone] Office: 09/20/24 0937 Date Alpesh Rivera MD [facility] Signature: Date (if applicable) CC: Normal [facility] Surgery Visit Reporton 09-12 Surgery Visit Report [facility] [address] [place] [address] OFFICE VISIT Date of Service: 09/12/24 MR#: [id number] Acct: [id number] Name: CAROLINE ALLRED Rep #: [id number] : 1985 Provider: Dr. Alpesh leal MD Age/Sex: 38/F Location: [facility] Status: Signed Intake Vital Signs 07/07/24 15:01 Height 5 ft 4 in Intake Visit Reasons: POSSIBLE EXCISION OF BUMP ON HEAD Chief Complaint: possible excision of bump on head Allergies No Known Allergies Allergy (Verified 10/07/24 09:24) Medications ???Medication ???Instructions ???Recorded ???Confirmed ???Type hydroxychloroquine 200 mg tablet 200 mg PO DAILY 11/13/19 10/07/24 History (Plaquenil) cholecalciferol (vitamin D3) 125 125 mcg PO QDAY 07/07/24 10/07/24 History mcg (5,000 unit) capsule glucosamine HCl 500 mg tablet 500 mg PO QDAY 07/07/24 10/07/24 H istory norethindrone acetate 1.5 1 tab PO QDAY 07/07/24 10/07/24 Hi story mg-ethinyl estradiol 30 mcg tablet (Chava) bcvcqdpi-jkyboj-aam-yuc-jami -perez-horse tab PO 07/07/24 10/07/24 His tory 100 mg-100 mg-100 mg-125 mg tab (Tumersaid) PFSH Medical History Neutropenia Acute otitis media Seasonal allergies Hernia Knee pain Arthritis Shoulder pain History of hemorrhoids Surgical History History of cholecystectomy Social History Smoking Status: Never smoker HPI HPI HPI: Patient is here for excision of lesion on the scalp ROS General General: No weight change, appetite, fatigue, colon cancer, breast cancer or weakness HEENT HEENT: No difficulty swallowing, eye injury, eye surgery, swollen glands or hoarseness Endo Endocrine: Yes thyroid cancer; No thyroid disease, diabetes mellitus, Hair loss, heat intolerance or cold intolerance Skin Skin: No rash or changing moles Musc Musculoskeletal: Yes arthritis; No back problems, rheumatoid arthritis, gout or joint pain Cardio Cardiovascular: No murmur, pacemaker, heart disease, atrial fibrillation, high blood pressure, heart attack, heart stent, palpitations, shortness of breath with exertion or chest pain Psych Psychiatric: No depression, anxiety or hearing voices Resp Respiratory: No shortness of breath, No sleep apnea, No cough, No COPD, No asthma, No emphysema and No wheezing Gastro Gastrointestinal: No abdominal pain, No nausea or vomiting, Yes diarrhea, Yes constipation, No blood in stool, Yes acid reflux, No hemorrhoids, No ulcers, No gallbladder problem and No black,tarry stools Additional Details: IBS Long Hematologic: No blood thinners, Yes blood disorders, No bleeding, No anemia and No blood clots Neuro Neurologic: No system reviewed and no additional complaints, except as documented, No as per HPI, No abnormal gait, No abnormal hearing, No abnormal movements, No abnormal speech, No behavioral changes, No burning sensations, No confusion, No convulsions, No disequilibrium, No dizziness, No localized weakness, No frequent falls, No headache(s), No lack of coordination, No loss of vision, No memory loss, No numbness, No other visual disturbances, No radicular pain, No restless legs, No sensory deficit, No syncope, No tingling, No tremor(s), No weakness and No other Office Procedures Procedure Time Out Time Out Informed consent given: Yes Consent signed: Yes Time out checklist: patient, procedure, site marked/identified, positioning of patient, supplies available, allergies confirmed and team agrees on procedure Time out staff in room: Yes Time out verified: Yes Time out date: 09/12/24 Time out time: 14:15 Assessment and Plan Assessment and Plan (1) Mass of head: Status: Acute Plan: I attempted to excise the mass posterior to the right ear. It was very firm and adherent to the scalp and I was unable to remove it. I closed the incision and I will send her to plastic surgery for evaluation for excision in the OR. Alpesh Rivera MD Pager: [facility] [address] [place] [address], [address] [place] [address] Office: Orders: Referrals Plastic surgery R22.0 - Localized swelling, mass and lump, head Coding Level of Care Code Off vis,est,level 2 Diagnoses Mass of head R22.0 10/11/24 1002 Date Alpesh Rivera MD [employer] Signature: Date (if applicable) CC: Normal [facility] Surgery Visit Reporton 08-12 Surgery Visit Report [facility] [address] [place] [address]. [address] [place] [address] OFFICE VISIT Date of Service: 08/12/24 MR#: [id number] Acct: [id number] Name: CAROLINE ALLRED Rep #: [id number] : 1985 Provider: Dr. Alpesh leal MD Age/Sex: 38/F Location: [facility] Status: Signed Intake Vital Signs 07/07/24 15:01 Height 5 ft 4 in Weight: 112 lb BMI 19.2 BP 134/91 H Blood Pressure Location Rt brachial Position Sitting Respiration 17 Pulse 71 Pulse Source Monitor Temp 97.6 F L Pulse Oximetry (%) 99 Oxygen Delivery Method room air Intake Visit Reasons: POSSIBLE EXCISION OF BUMP ON HEAD Chief Complaint: possible excision of bump on head Is patient in pain?: No Allergies No Known Allergies Allergy (Verified 07/07/24 15:03) Medications ???Medication ???Instructions ???Recorded ???Confirmed ???Type hydroxychloroquine 200 mg tablet 200 mg PO DAILY 11/13/19 08/12/24 History (Plaquenil) montelukast 10 mg tablet 10 mg PO QPM #20 tabs 05/08/2303/28 Rx (Singulair) cholecalciferol (vitamin D3) 125 125 mcg PO QDAY 07/07/24 08/12/24 History mcg (5,000 unit) capsule glucosamine HCl 500 mg tablet 500 mg PO QDAY 07/07/24 08/12/24 H istory norethindrone acetate 1.5 1 tab PO QDAY 07/07/24 08/12/24 Hi story mg-ethinyl estradiol 30 mcg tablet (Chava) czxqgrvi-bsfpyk-vhe-yuc-jami -perez-horse tab PO 07/07/24 08/12/24 His tory 100 mg-100 mg-100 mg-125 mg tab (Tumersaid) Subjective Details: The patient came in today to have her cyst removed from her scalp but she decided not to have this done as she has a marathon coming up and would like to have it done afterwards Objective Details: There is still a lump behind the right ear and the scalp Coding Level of Care Code Off vis,est,level 2 Diagnoses Mass of head R22.0 [facility] Medical History (Updated 07/07/24 @ 15:02 by Yesi Wang) Neutropenia Acute otitis media Seasonal allergies Hernia Knee pain Arthritis Shoulder pain History of hemorrhoids Surgical History History of cholecystectomy Social History Smoking Status: Never smoker Assessment and Plan (No Qualifiers) Assessment and Plan (1) Mass of head: Status: Acute Plan: Patient has a likely sebaceous cyst behind her right ear on the scalp. She would like this removed but she did not want it removed today as she has a half marathon coming up and she is still training. She will follow-up after the marathon for excision of this scalp mass. Alpesh Rivera MD Pager: [facility] [address] [place] [address], [address] [place] [phone] Office: 08/16/24 5661 Date Alpesh Carson Signature: Date (if applicable) CC: Normal [facility] Surgery Visit Reporton 07-07 Surgery Visit Report [facility] [address] [place], [place] [id number] OFFICE VISIT Date of Service: 07/07/24 MR#: [id number] Acct: [id number] Name: CAROLINE ALLRED Rep #: [id number] : 1985 Provider: Dr. Alpesh leal MD Age/Sex: 38/F Location: [facility] Status: Signed Intake Vital Signs 04/07/23 08:27 07/07/24 15:01 Height 5 ft 3.6 in 5 ft 4 in Weight: 112 lb BMI 19.2 BP 134/91 H Blood Pressure Location Rt brachial Position Sitting Respiration 17 Pulse 71 Pulse Source Monitor Temp 97.6 F L Pulse Oximetry (%) 99 Oxygen Delivery Method room air Intake Visit Reasons: BUMP ON HEAD AND POSSIBLE HERNIA Chief Complaint: hernia/mass on head Allergies No Known Allergies Allergy (Verified 07/07/24 15:03) Medications ???Medication ???Instructions ???Recorded ???Confirmed ???Type hydroxychloroquine 200 mg tablet 200 mg PO DAILY 11/13/19 07/07/24 History (Plaquenil) montelukast 10 mg tablet 10 mg PO QPM #20 tabs 05/08/2310/26 Rx (Singulair) cholecalciferol (vitamin D3) 125 125 mcg PO QDAY 07/07/24 07/07/24 History mcg (5,000 unit) capsule glucosamine HCl 500 mg tablet 500 mg PO QDAY 07/07/24 07/07/24 H istory norethindrone acetate 1.5 1 tab PO QDAY 07/07/24 07/07/24 Hi story mg-ethinyl estradiol 30 mcg tablet (Chava) wxifqduj-chadvd-arl-yuc-jami -perez-horse tab PO 07/07/24 07/07/24 His tory 100 mg-100 mg-100 mg-125 mg tab (Tumersaid) PFSH Medical History (Updated 07/07/24 @ 15:02 by Yesi Wang) Neutropenia Acute otitis media Seasonal allergies Hernia Knee pain Arthritis Shoulder pain History of hemorrhoids Surgical History History of cholecystectomy Social History Smoking Status: Never smoker HPI HPI HPI: Patient is a 38-year-old female who has noticed a lump behind her right ear. The lump is on the scalp and she believes it is only been there for about a week. She does not note much tenderness. There is no drainage. She has not noted any viral illnesses recently. ROS General General: No weight change, appetite, fatigue, colon cancer, breast cancer or weakness HEENT HEENT: No difficulty swallowing, eye injury, eye surgery, swollen glands or hoarseness Endo Endocrine: Yes thyroid cancer; No thyroid disease, diabetes mellitus, Hair loss, heat intolerance or cold intolerance Skin Skin: No rash or changing moles Musc Musculoskeletal: Yes arthritis; No back problems, rheumatoid arthritis, gout or joint pain Cardio Cardiovascular: No murmur, pacemaker, heart disease, atrial fibrillation, high blood pressure, heart attack, heart stent, palpitations, shortness of breath with exertion or chest pain Psych Psychiatric: No depression, anxiety or hearing voices Resp Respiratory: No shortness of breath, No sleep apnea, No cough, No COPD, No asthma, No emphysema and No wheezing Gastro Gastrointestinal: No abdominal pain, No nausea or vomiting, Yes diarrhea, Yes constipation, No blood in stool, Yes acid reflux, No hemorrhoids, No ulcers, No gallbladder problem and No black,tarry stools Additional Details: IBS Long Hematologic: No blood thinners, Yes blood disorders, No bleeding, No anemia and No blood clots Neuro Neurologic: No system reviewed and no additional complaints, except as documented, No as per HPI, No abnormal gait, No abnormal hearing, No abnormal movements, No abnormal speech, No behavioral c hanges, No burning sensations, No confusion, No convulsions, No disequilibrium, No dizziness, No localized weakness, No frequent falls, No headache(s), No lack of coordination, No loss of vision, No memory loss, No numbness, No other visual disturbances, No radicular pain, No restless legs, No sensory deficit, No syncope, No tingling, No tremor(s), No weakness and No other Exam Const General: cooperative Orientation: alert and oriented x3 HENMT Head: normal to inspection Neck Neck: normal visual inspection and full ROM Chest Chest palpation inspection: normal inspection of the chest Resp Effort Inspection: normal respiratory effort Auscultation: clear to auscultation bilaterally Cardio Rate: regular rate Rhythm: regular rhythm GI Inspection: non-distended Palpation: soft and nontender Skin General: no rashes or lesions noted Neuro General: patient alert and patient oriented x3 Extrem General: full ROM Psych Appearance: grossly normal Mental Status: mental status grossly normal Assessment and Plan Assessment and Plan (1) Mass of head: Status: Acute Plan: There is a small mass that is about 2 cm in diameter behind the right ear. It is firm. It appears to be a (more content not included)... [facility] ([facility] ) CAROLINE ALLRED ([id number]) 1985 F T Date Time Provider Department 07/01/24 7:15 AM COLLIN CASTELLON [facility] During your visit today, we recorded the following information about you: Pulse Respiration Blood pressure Weight 83/minute 16/minute 110/76 50 kg Collin Castellon PA 07/01/2024 7:28 AM Signed This note was created using [email or web address]. Subjective Caroline Allred is a 38 year old female. HPI 38-year-old female presents for a bump on the back of her head. Patient states she noticed it last night. She has never noticed it before. She states it was slightly painful to touch which is why she noticed it. She denies any fevers, drainage. No headaches, vision changes. No other complaint. PAST MEDICAL HISTORY Diagnosis Date Arthritis 2018 Benign cyst of breast, right 2024 calcified at [address] [facility] Cyclical neutropenia (HCC) Cystic fibrosis screening 2016 Had SMA/fragile x and CF screening, all neg. screens Endometriosis History of PCOS Hypotension Infertility, female Irritable bowel syndrome Irritable bowel Migraine, unspecified, with intractable migraine, so stated, without mention of status migrainosus Migraine Myopia Orthostatic hypotension Thyroid cancer (HCC) 05/2022 PAST SURGICAL HISTORY Procedure Laterality Date BIOPSY VAGINAL MUCOSA EXTENSIVE 04/16/2017 revision of perineum/vagina from nonhealinge perineal ob lac CHOLECYSTECTOMY Cholecystectomy HERNIA REPAIR HX PAST SURGICAL HISTORY OF growth left knee PAST SURGICAL HISTORY OF left foot pin toe PAST SURGICAL HISTORY OF right foot THYROID part of thyroid removed ALLERGIES Seasonal Allergies MEDICATIONS Norethindrn A-E Estradiol-Iron (CHAVA 24 FE) 1 mg-20 mcg (24)/75 mg (4) FOR CONTINUOUS USE - take only active pills TURMERIC ORAL Take by mouth. calcium phosphate dibas/vit D3 (VITAMIN D, WITH CALCIUM, ORAL) Take by mouth. Nknklthqfdf-Huaveeyrc-Fkk C-Mn 500-400 mg cap omeprazole (PRILOSEC) 40 mg capsule as needed. predniSONE (DELTASONE) 10 mg tablet Take 1 tablet by mouth as needed. hydroxychloroquine (PLAQUENIL) 200 mg tablet Take 1 tablet by mouth once daily. docusate sodium (COLACE) 100 mg capsule Take 1 capsule by mouth twice daily. FAMILY HISTORY Problem Relation Age of Onset No Known Problems Mother No Known Problems Father no relationship Cancer Maternal Grandfather Stroke Paternal Grandfather Social History Tobacco Use Smoking status: Never Smokeless tobacco: Never Vaping Use Vaping status: Never Used Substance Use Topics Alcohol use: Yes Comment: social Drug use: No Review of Systems Constitutional: Negative for chills and fever. HENT: Negative for congestion, ear pain and sore throat. Respiratory: Negative for cough and shortness of breath. Cardiovascular: Negative for chest pain. Gastrointestinal: Negative for diarrhea and vomiting. Objective BP 110/76 (BP Position: Sitting) Pulse 83 Resp 16 Wt 50 kg (110 lb 3.7 oz) LMP 06/10/2020 SpO2 98% BMI 19.22 kg/m? Physical Exam Vitals and nursing note reviewed. Constitutional: General: She is not in acute distress. Appearance: Normal appearance. She is not toxic-appearing. HENT: Head: Comments: Approximately the 1.5 cm x 1.5 cm firm nodule/cyst noted over right parietal scalp posterior to the ear. It is within the hairline. No fluctuance, redness or lymphatic streaking. Mild tenderness to touch. No lymphadenopathy. Slightly mobile Nose: Nose normal. Mouth/Throat: Mouth: Mucous membranes are moist. Eyes: Conjunctiva/sclera: Conjunctivae normal. Skin: General: Skin is warm and dry. Neurological: Mental Status: She is alert. Assessment and Plan ASSESSMENT/PLAN: 1. Pilar cyst of scalp - ICD9: 704.41, ICD10: L72.11 -Suspect pilar cyst based on exam. -Recommend follow-up with dermatology. Patient states she will call [facility] to schedule follow-up. -May use Tylenol/Motrin as needed for pain -No signs of infection on exam today. Diagnosis and treatment plan were discussed and questions were answered to the patient's satisfaction. Pt acknowledged understanding of concepts and follow up plan. Specific signs and symptoms that would indicate the need for higher level of care were discussed in detail warranting prompt ER evaluation. KALINA Baca Allergies As of Date: 07/01/2024 Noted Allergy Reaction SEASONAL ALLERGIES 04/24/2022 9 - Itching Date Reviewed: 07/01/2024 Reviewed by: Yvette Boucher LPN - Fully Assessed Reason for Visit: Mass [64] Cmt: On back of head near right ear, painful to touch, no injury, noticed last night Primary Visit Diagnosis:Pilar cyst of scalp [L72.11] Prescriptions as of 07/01/2024 - Norethindrn A-E Estradiol-Iron (CHAVA 24 FE) 1 mg-20 mcg (24)/75 mg (4) FOR CONTINUOUS USE - (more content not included)... Normal [facility] 06[facility]30[facility]2024 [facility] Office Visit (OBGYWM ) CAROLINE ALLRED ([id number]) 1985 F CHT Date Time Provider Department 06/30/24 2:00 PM COTY HANEY OBGYWMarisela During your visit today, we recorded the following information about you: Blood pressure Weight Height 115/75 50.3 kg 1.613 m Coty Haney, [employer] 06/30/2024 7:32 PM Signed Caroline is a 38 year old who presents for an annual gynecologic exam without complaints. Menses: none due to OCP - recent break through bleeding after taking fish oil. She has since stopped it. Contraception: vasectomy. HPV vaccine: No Last Pap: 04/24/2022 normal HPV: negative History of abnormal pap: No Last mammogram: 05/24/2024 [facility] and ultrasound calcified cyst right breast Sexually active: Yes Patient concerns for STD exposure: No. Time with current partner: 14 years History of PCOS: Yes History of endometriosis: Yes - removed with surgery Pain with intercourse: No Postcoital bleeding: No Documentation from previous visit of 04/24/2022 was copied and pasted, documentation has been reviewed and edited as necessary for today's visit. OB History Gravida2 Para1 Term1 Preterm0 AB1 Living1 SAB1 IAB0 Ectopic0 Multiple0 Live Births1 Comment: G1 SAB, no DANDC 3 children total; 1 biological child Emergency Care Tech History LMP: 06/10/2020, Drug Induced Amenorrhea Age at Menarche: Age at First : Age at Menopause: Emergency Care Tech History Comments: Sexual Activity: Yes; Male Contraception: Vasectomy PAST MEDICAL HISTORY Diagnosis Date Arthritis 2019 Cyclical neutropenia (HCC) Cystic fibrosis screening 2016 Had SMA/fragile x and CF screening, all neg. screens Endometriosis History of PCOS Hypotension Infertility, female Irritable bowel syndrome Irritable bowel Migraine, unspecified, with intractable migraine, so stated, without mention of status migrainosus Migraine Myopia Orthostatic hypotension Thyroid cancer (HCC) 05/2022 PAST SURGICAL HISTORY Procedure Laterality Date BIOPSY VAGINAL MUCOSA EXTENSIVE 04/16/2017 revision of perineum/vagina from nonhealinge perineal ob lac CHOLECYSTECTOMY Cholecystectomy HERNIA REPAIR HX PAST SURGICAL HISTORY OF growth left knee PAST SURGICAL HISTORY OF left foot pin toe PAST SURGICAL HISTORY OF right foot THYROID part of thyroid removed FAMILY HISTORY Problem Relation Age of Onset No Known Problems Mother No Known Problems Father no relationship Cancer Maternal Grandfather Stroke Paternal Grandfather SOCIAL HISTORY Social History Tobacco Use Smoking status: Never Smokeless tobacco: Never Vaping Use Vaping status: Never Used Substance Use Topics Alcohol use: Yes Comment: social Drug use: No REVIEW OF SYSTEMS Abdomen: No abdominal pain, nausea, vomiting, diarrhea, or constipation. No bloating, early satiety, indigestion, or increased flatulence. Bladder: No dysuria, gross hematuria, urinary frequency, urinary urgency, or incontinence. Breast: No breast lumps, nipple d/c, overlying skin changes, redness or skin retraction. Allergies and current medication updated:Yes SENSITIVE EXAM: The sensitive examination was discussed with the Patient or Patient's Authorized Ship Propeller Finisher. As applicable, any other physician, advance practice provider, medical student, or other health professional student that will be observing or involved in the sensitive examination for educational or training purposes was discussed with the Patient or Authorized Ship Propeller Finisher. The Patient or Authorized Ship Propeller Finisher has agreed to proceed with the sensitive examination. (Sensitive examination includes inspection and/or palpation of the breasts, pelvis, prostate and anorectal regions). EXAM: BP 115/75 Ht 5' 3.5 (1.61m) Wt 111 lb (50.3kg) LMP 06/10/2020 BMI 19.35 kg/(m2). GENERAL: pleasant, female in no apparent distress HEENT: Normocephalic, atraumatic, mucus membranes moist, and no lesions NECK: Supple, full range of motion, no adenopathy, and thyroid normal DERMATOLOGY: Normal, without lesions, non-icteric, and non-hirsute BREAST: soft, non-tender, symmetric, no dominant mass, normal nipple-areolar complex, no lymphadenopathy, and no nipple discharge CHEST: Normal inspiratory effort ABDOMEN: soft, non-tender, and no masses PELVIC: external genitalia normal, normal Bartholin's glands, urethra, Tetlin's glands, no vulvar lesions, no cervical lesions, good vaginal support, physiologic discharge present, normal appearing perineal body and perianal region BIMANUAL: uterus normal size, shape and consistency, no adnexal masses, and non-tender RECTOVAGINAL: deferred. NEURO: alert and oriented x3,exam grossly non-focal EXTREMITIES: normal ASSESSMENT/PLAN: 1) Health maintenance: Pap/HPV up to date. Mammogram starting age 40. Nutrition, exercise and routine health maintenance (more content not included)... Normal [facility] Breast Limited Unilateralon 05-24-2024 Breast Limited Unilateral [facility] Imaging Services [address] [place], [place] [id number] Breast Limited Unilateral MR#: [id number] Acct: [id number] Name: CAROLINE ALLRED Rep #: [id number] : 1985 F 38 From: Ramon lomax MD PCP: Dr. Yolie Stanton MD Status: REG CLI Study: Breast Limited Unilateral Date of Exam: Exam# [id number] Ordering Dr: ALPESH LONGORIA [id number] STUDY: ULTRASOUND BREAST - LEFT REASON FOR EXAM: Female, 38 years old. Left breast pain. TECHNIQUE: Axial and longitudinal images of the LEFT breast were performed with a high resolution ultrasound transducer. # OF IMAGES: 33 COMPARISON: Comparison is made with prior mammogram done earlier in the day. FINDINGS: LEFT Breast: The upper lateral aspect of the left breast was examined with ultrasound. No sonographic abnormality is seen. IMPRESSION: No sonographic abnormality is seen. ASSESSMENT CATEGORY: BIRADS Category 1: Negative. A letter regarding these results will be sent to the patient by the facility within 30 days. Electronically Signed: Ramon Muse MD at 14:51 EST , [id number] STUDY: ULTRASOUND BREAST - RIGHT REASON FOR EXAM: Female, 38 years old. Asymmetry of breast tissue in the lateral the portion of the right breast. TECHNIQUE: Axial and longitudinal images of the RIGHT breast were performed with a high resolution ultrasound transducer. # OF IMAGES: 33 COMPARISON: Comparison is made with prior mammogram done earlier today. FINDINGS: RIGHT Breast: The lateral aspect of the right breast was examined with ultrasound. There is a 4 mm x 4 mm x 3 mm calcified cyst at the 10:00 position of the breast at 3 cm from the nipple. US/Breast Limited Unilateral IMPRESSION: 4 mm x 4 mm x 3 mm calcified cyst at the 10:00 position of the breast at 3 cm from the nipple. ASSESSMENT CATEGORY: BIRADS Category 2: Benign. A letter regarding these results will be sent to the patient by the facility within 30 days. Electronically Signed: Ramon Muse MD at 14:52 EST , CC: ALPESH LONGORIA; Dr. Yolie Stanton MD Rn Provider Relations: Signed [facility] 05-24-2024 [facility] Telephone (OBGYWM) CAROLINE ALLRED ([id number]) 1985 F T Date Time Provider Department 05/24/24 SUJATHA NUNN During your visit today, we recorded the following information about you: Terra Juarez RN 05/24/2024 10:25 AM Addendum AT patient. [facility] Mammography called. Patient is there now having diagnostic imaging. The radiologist would like to also do a right breast US. Can you please file the order. We will then fax to [phone] ARSH Sanchez Jessica, APRN.[facility] 05/24/2024 10:27 AM Signed Order signed. Terra Juarez RN 05/24/2024 10:36 AM Signed Faxed via [employer]. Terra Juarez RN Allergies As of Date: 05/24/2024 Noted Allergy Reaction SEASONAL ALLERGIES 04/24/2022 9 - Itching Date Reviewed: 05/09/2024 Reviewed by: Gabriela Davila MA - Fully Assessed Reason for Visit: Orders [681] Primary Visit Diagnosis:Abnormal mammogram [R92.8] Order(s): BREAST LTD RIGHT [[id number]] Order #: [id number] FUTURE Prescriptions as of 05/24/2024 - TURMERIC ORAL Take by mouth. - calcium phosphate dibas/vit D3 (VITAMIN D, WITH CALCIUM, ORAL) Take by mouth. - Norethindrn A-E Estradiol-Iron (CHAVA 24 FE) 1 mg-20 mcg (24)/75 mg (4) FOR CONTINUOUS USE - take only active pills - Yfgroijrktb-Wpvefuwub-Amz C-Mn 500-400 mg cap - omeprazole (PRILOSEC) 40 mg capsule - predniSONE (DELTASONE) 10 mg tablet Take 1 tablet by mouth as needed. - hydroxychloroquine (PLAQUENIL) 200 mg tablet Take 1 tablet by mouth once daily. - docusate sodium (COLACE) 100 mg capsule Take 1 capsule by mouth twice daily. 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] 01/10/2008 Syncope and collapse [R55] 01/10/2008 02/05/2016 Myopia [H52.10] 05/02/2013 08/20/2016 Encounter for supervision of other normal pregn*08/20/2016 02/27/2017 Preoperative examination [Z01.818] 05/20/2017 06/08/2017 Vaginal granulation tissue [N89.8] 05/20/2017 Vaginal scar [N89.8] 05/20/2017 Myopia, bilateral [H52.13] 08/04/2017 Arthritis [M19.90] 2018 Encounter Status:Closed by TERRA JUAREZ on 05/24/24 Normal [facility] DIAG MAMM W/CAD, BILATon DIAG MAMM W/CAD, [facility] Imaging Services [address] [place] [address] [id number] DIAG MAMM W/CAD, BILAT MR#: [id number] Acct: [id number] Name: CAROLINE ALLRED Rep #: [id number] : 1985 F 38 From: Ramon lomax MD PCP: Dr. Yolie Stanton MD Status: [facility] Study: DIAG MAMM W/CAD, BILAT Date of Exam: 05/24/24 Exam# [id number] Ordering Dr: ALPESH LONGORIA [id number] MAMMOGRAPHY - BILATERAL DIAGNOSTIC REASON FOR EXAM: Female, 38 years old. Left retroareolar breast pain. PERTINENT HISTORY: Non-contributory. TECHNIQUE: Digital bilateral breast zulema (3D mammographic acquisition) in the CC and MLO projections. 2-D mediolateral oblique (MLO) and craniocaudad (CC) views of both breasts were obtained. CAD: Full Field Digital Mammography with Computer Added Detection was performed. COMPARISON: None. Baseline examination. FINDINGS: Breast Composition: The breasts are extremely dense, which lowers the sensitivity of mammography. There are no dominant masses or suspicious calcifications. There is a densely calcified 4.5 mm nodule in the upper lateral aspect of the right breast most likely representing a fibroadenoma. Asymmetry of breast tissue is seen in the deep lateral view of the right breast on the craniocaudad projection. No other significant abnormalities are identified. BI/DIAG MAMM W/CAD, BILAT IMPRESSION: Negative diagnostic mammogram. With the patient''s history of a left retroareolar pain, targeted sonographic correlation recommended. Asymmetry of breast tissue seen in the deep lateral aspect of the right breast on the craniocaudad view. Correlation with ultrasound is recommended as well. ASSESSMENT CATEGORY: BIRADS Category 0: Incomplete. Need additional imaging evaluation. A letter regarding these results will be sent to the patient by the facility within 30 days. Approximately 10% of breast cancers are not detected by mammography. A normal mammogram should not delay biopsy of a clinically suspicious abnormality. Electronically Signed: Ramon Muse MD at 10:17 EST , CC: ALPESH LONGORIA; Dr. 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 on 05/24/24 at 9:30 Am, patient is aware please fax orders to [phone] Terra Juarez RN 05/17/2024 2:28 PM Signed Orders faxed via [employer] to [facility]. Terra Juarez RN Allergies As of Date: 05/17/2024 Noted Allergy Reaction SEASONAL ALLERGIES 04/24/2022 9 - Itching Date Reviewed: 05/09/2024 Reviewed by: Gabriela Davila MA - Fully Assessed Reason for Visit: Orders [001] Prescriptions as of 05/17/2024 - TURMERIC ORAL Take by mouth. - calcium phosphate dibas/vit D3 (VITAMIN D, WITH CALCIUM, ORAL) Take by mouth. - Norethindrn A-E Estradiol-Iron (CHAVA 24 FE) 1 mg-20 mcg (24)/75 mg (4) FOR CONTINUOUS USE - take only active pills - Kzmovlrryud-Bctxgpasa-Wdo C-Mn 500-400 mg cap - omeprazole (PRILOSEC) 40 mg capsule - predniSONE (DELTASONE) 10 mg tablet Take 1 tablet by mouth as needed. - hydroxychloroquine (PLAQUENIL) 200 mg tablet Take 1 tablet by mouth once daily. - docusate sodium (COLACE) 100 mg capsule Take 1 capsule by mouth twice daily. - VITAFOL GUMMIES 3.33 mg iron- 0.33 mg chew TAKE 3 GUMMIES BY MOUTH EVERY DAY Problem List As Of Date 05/17/2024 Noted Resolved Orthostatic hypotension [I95.1] 08/20/2016 IRRITABLE COLON [K58.9] HYPERKINETIC HEART DIS [I51.89] 01/10/2008 Syncope and collapse [R55] 01/10/2008 02/05/2016 Myopia [H52.10] 05/02/2013 08/20/2016 Encounter for supervision of other normal pregn*08/20/2016 02/27/2017 Preoperative examination [Z01.818] 05/20/2017 06/08/2017 Vaginal granulation tissue [N89.8] 05/20/2017 Vaginal scar [N89.8] 05/20/2017 Myopia, bilateral [H52.13] 08/04/2017 Arthritis [M19.90] 2018 Encounter Status:Closed by TERRA JUAREZ on 05/17/24 Normal [facility] CNPIsabella 05-11-2024 CNPN Telephone (RDXWS) CAROLINE ALLRED ([id number]) 1985 F T Date Time Provider Department 05/11/24 ALPESH LONGORIA RDXWS During your visit today, we recorded the following information about you: Shira Purvis, Mammo Tech 05/11/2024 9:54 AM Signed Could we have a diagnostic bilateral mammogram order please? Thanks a million Allergies As of Date: 05/11/2024 Noted Allergy Reaction SEASONAL ALLERGIES 04/24/2022 9 - Itching Date Reviewed: 05/09/2024 Reviewed by: Gabriela Davila MA - Fully Assessed Reason for Visit: Orders [681] Primary Visit Diagnosis:Mastodynia of left breast [N64.4] Order(s):ZAC DIAGNOSTIC BILATERAL [[id number]] Order #: [id number] FUTURE Prescriptions as of 05/16/2024 - TURMERIC ORAL Take by mouth. - calcium phosphate dibas/vit D3 (VITAMIN D, WITH CALCIUM, ORAL) Take by mouth. - Norethindrn A-E Estradiol-Iron (CHAVA 24 FE) 1 mg-20 mcg (24)/75 mg (4) FOR CONTINUOUS USE - take only active pills - Dubxnmqdwwa-Gdfrsulqo-Lfj C-Mn 500-400 mg cap - omeprazole (PRILOSEC) 40 mg capsule - predniSONE (DELTASONE) 10 mg tablet Take 1 tablet by mouth as needed. - hydroxychloroquine (PLAQUENIL) 200 mg tablet Take 1 tablet by mouth once daily. - docusate sodium (COLACE) 100 mg capsule Take 1 capsule by mouth twice daily. - VITAFOL GUMMIES 3.33 mg iron- 0.33 mg chew TAKE 3 GUMMIES BY MOUTH EVERY DAY Problem List As Of Date 05/11/2024 Noted Resolved Orthostatic hypotension [I95.1] 08/20/2016 IRRITABLE COLON [K58.9] HYPERKINETIC HEART DIS [I51.89] 01/10/2008 Syncope and collapse [R55] 01/10/2008 02/05/2016 Myopia [H52.10] 05/02/2013 08/20/2016 Encounter for supervision of other normal pregn*08/20/2016 02/27/2017 Preoperative examination [Z01.818] 05/20/2017 06/08/2017 Vaginal granulation tissue [N89.8] 05/20/2017 Vaginal scar [N89.8] 05/20/2017 Myopia, bilateral [H52.13] 08/04/2017 Arthritis [M19.90] 2018 Encounter Status:Closed by ALPESH LONGORIA on 05/16/24 Normal [facility] CNOVon 05-09-2024 CNOV Office Visit (OBGYWM ) CAROLINE ALLRED ([id number]) 1985 F T Date Time Provider Department 05/09/24 1:50 PM ALPESH LONGORIA OBGYWM During your visit today, we recorded the following information about you: Blood pressure Weight 110/72 50.8 kg Alpesh Longoria MD 05/09/2024 2:43 PM Signed Lithograph Printer offered: Patient accepts, visit chaperoned by Michelle Davila MA. Caroline Allred is a 38 year old female who presents for problem visit with c/o left nipple pain of 5 days duration on two separate occasions over the past yolanda. . HPI: as above OB History T1 L1 SAB1 IAB0 Ectopic0 Multiple0 Live Births1 Comment: G1 SAB, no DANDC 3 children total; 1 biological child Emergency Care Tech History LMP: 06/10/2020, Drug Induced Amenorrhea Age at Menarche: Age at First : Age at Menopause: Emergency Care Tech History Comments: Sexual Activity: Yes; Male Contraception: Vasectomy PAST MEDICAL HISTORY Diagnosis Date Arthritis 2019 Cyclical neutropenia (HCC) Cystic fibrosis screening 2016 Had SMA/fragile x and CF screening, all neg. screens Endometriosis History of PCOS Hypotension Infertility, female Irritable bowel syndrome Irritable bowel Migraine, unspecified, with intractable migraine, so stated, without mention of status migrainosus Migraine Myopia Orthostatic hypotension Thyroid cancer (HCC) 05/2022 PAST SURGICAL HISTORY Procedure Laterality Date BIOPSY VAGINAL MUCOSA EXTENSIVE 04/16/2017 revision of perineum/vagina from nonhealinge perineal ob lac CHOLECYSTECTOMY Cholecystectomy HERNIA REPAIR HX PAST SURGICAL HISTORY OF growth left knee PAST SURGICAL HISTORY OF left foot pin toe PAST SURGICAL HISTORY OF right foot THYROID part of thyroid removed FAMILY HISTORY Problem Relation Age of Onset No Known Problems Mother No Known Problems Father no relationship Cancer Maternal Grandfather Stroke Paternal Grandfather Social History Tobacco Use Smoking status: Never Smokeless tobacco: Never Vaping Use Vaping status: Never Used Substance Use Topics Alcohol use: Yes Comment: social Drug use: No Current Outpatient Medications Medication Sig Norethindrn A-E Estradiol-Iron (CHAVA 24 FE) 1 mg-20 mcg (24)/75 mg (4) FOR CONTINUOUS USE - take only active pills Cgsgmzqexqu-Gunczxxjs-Lei C-Mn 500-400 mg cap predniSONE (DELTASONE) 10 mg tablet Take 1 tablet by mouth as needed. hydroxychloroquine (PLAQUENIL) 200 mg tablet Take 1 tablet by mouth once daily. docusate sodium (COLACE) 100 mg capsule Take 1 capsule by mouth twice daily. omeprazole (PRILOSEC) 40 mg capsule (Patient not taking: Reported on 04/07/2023) VITAFOL GUMMIES 3.33 mg iron- 0.33 mg chew TAKE 3 GUMMIES BY MOUTH EVERY DAY No current facility-administered medications for this visit. Allergies As of Date: 05/09/2024 Allergen Noted Reaction SEASONAL ALLERGIES 04/24/2022 Itching Fully Assessed 05/09/2024 REVIEW OF SYSTEMS Abdomen: No bloating, early satiety, indigestion, or increased flatulence. No abdominal pain, nausea, vomiting, diarrhea, or constipation. Bladder: No dysuria, gross hematuria, urinary frequency, urinary urgency, or incontinence. Breast: as above. Expanded ROS: N/A Allergies and current medication updated:Yes SENSITIVE EXAM: The sensitive examination was discussed with the Patient or Patient's Authorized Ship Propeller Finisher. As applicable, any other physician, advance practice provider, medical student, or other health professional student that will be observing or involved in the sensitive examination for educational or training purposes was discussed with the Patient or Authorized Ship Propeller Finisher. The Patient or Authorized Ship Propeller Finisher has agreed to proceed with the sensitive examination. (Sensitive examination includes inspection and/or palpation of the breasts, pelvis, prostate and anorectal regions). EXAM: Wt 112 lb (50.8kg) LMP 06/10/2020 Breast bilaterally symmetrical, no masses, lymphadenopathy or nipple discharge. GENERAL: pleasant, female in no apparent distress ASSESSMENT AND PLAN: unilateral nipple pain with a normal examination Assessment AND Plan Alpesh Longoria MD Allergies As of Date: 05/09/2024 Noted Allergy Reaction SEASONAL ALLERGIES 04/24/2022 9 - Itching Date Reviewed: 05/09/2024 Reviewed by: Gabriela Davila MA - Fully Assessed Reason for Visit: Breast Problem [16] Primary Visit Diagnosis:Mastodynia of left breast [N64.4] Order(s): BREAST LTD LEFT [[id number]] Order #: [id number] FUTURE ZAC SCREENING W ZULEMA [[id number]] Order #: [id number] FUTURE Prescriptions as of 05/09/2024 - TURMERIC ORAL Take by mouth. - calcium phosphate dibas/vit D3 (VITAMIN D, WITH CALCIUM, ORAL) Take by mouth. - Norethindrn A-E Estradiol-Iron (CHAVA 24 FE) 1 mg-20 mcg (24)/75 mg (4) FOR CONTINUOUS USE - take only active (more content not included)... Normal [facility] THYROIDon 02-15-2024 THYROID Patient Name: CAROLINE ALLRED : 1985 [facility]#: [id number] Exam Date/Time: 02/15/2024 12:02 Procedure: US THYROID Ordering Provider: ZHANG MARK Reason For Exam: d44.0 ULTRASOUND THYROID: CLINICAL INDICATION: Thyroid nodules TECHNIQUE: Ultrasonographic evaluation of the thyroid including color flow imaging COMPARISON: 01/28/2023 FINDINGS: RIGHT LOBE: Absent LEFT LOBE: Size: Large. 1.3 x 1.5 x 5.2 cm previously 1.1 x 1.6 x 5.0 cm (AP x transverse x sagittal) Nodules: Detailed below Nodule Location: Mid Size: 0.6 x 0.6 x 0.7 cm (AP, transverse, sagittal) Composition: Solid (+2) Echogenicity: Hypoechoic (+2) Margins: Smooth (0) Calcifications: None (0) TI-RADS score*: 4 - moderately suspicious Change since last exam: Stable Nodule Location: Lower Size: 1.1 x 1.3 x 1.3 cm (AP, transverse, sagittal) Composition: Partially cystic (+1) Echogenicity: Hyperechoic (+1) Margins: Smooth (0) Calcifications: None (0) TI-RADS score*: 2 - not suspicious Change since last exam: Smaller Nodule Location: Lower Size: 0.6-0 0.8 x 0.6 cm (AP, transverse, sagittal) Composition: Partially cystic (+1) Echogenicity: Hypoechoic (+2) Margins: Smooth (0) Calcifications: None (0) TI-RADS score*: 3 - mildly suspicious Change since last exam: Smaller ISTHMUS: Normal. Nodules: None CERVICAL LYMPH NODES: No lymph node with pathologic features.(No lobulation or irregular cortex visualized, no heterogeneity, calcifications or cystic spaces or loss of fatty hilum, or round shape visualized.) IMPRESSION: Nodular left lobe. Status post resection of right lobe.. Please correlate with laboratory values. Stable to smaller lesions on the left. Follow-up recommended. Provided below: TI-RADS score system to be utilized at the clinician's discretion. *TI-RADS (2017) Reference: Quoc Blanca ACR Thyroid Imaging, Reporting and Data System (TI-RADS): White Paper of the ACR TI-RADS Committee. [facility]. August 2016 Thyroid nodule details (add points for total score): Composition(points): 1 - mixed cystic and solid 2 - solid Echogenicity: 1 - hyperechoic or isoechoic 2 - hypoechoic 3 - very hypoechoic Shape: 3 - taller than wide Margin: 2 - lobulated or irregular 3 - extrathyroidal extension Echogenic foci: 1 - macrocalcifications 2 - rim calcification 3 - microcalcifications Risk for malignancy: TI-RADS 1: 0 points - (benign) <2% risk TI-RADS 2: 2 points - (not suspicious) <5% TI-RADS 3: 3 points - (mildly suspicious) <5% FNA when >/= 2.5cm Follow when >1.5cm at 1, 3 and 5 years TI-RADS 4: 4-6 points - (moderately suspicious) 5-20% FNA when >/= 1.5cm Follow when >1.0cm at 1, 2, 3 and 5 years TI-RADS 5: 7+ points - (highly suspicious) >20% FNA when >/= 1.0cm Follow when >0.5cm every year for up to 5 years Please note: There are other existing guidelines to classify thyroid nodules to determine need for FNA; and this decision will be deferred to the ordering physician. Note: There are existing guidelines to classify the thyroid nodule(s) and determine need for FNA and this decision will be deferred to the ordering clinician. Report Dictated on Electronically Signed By: Matheus Freire MD Electronically Signed Date/Time: 02/15/2024 2:26 PM EDT [facility] US Thyroid glandon 4 Nodular left lobe. S tatus post resection of right lobe.. Please correlate with laboratory values. Stable to smaller lesions on the left. Follow-up recommended. Provided below: TI-RADS score system to be utilized at the clinician's discretion. *TI-RADS (2017) Reference: Glory Blanca. ACR Thyroid Imaging, Reporting and Data System (TI-RADS): White Paper of the ACR TI-RADS Committee. J [facility]. August 2016 Thyroid nodule details (add points for total score): Composition(points): 1 - mixed cystic and solid 2 - solid Echogenicity: 1 - hyperechoic or isoechoic 2 - hypoechoic 3 - very hypoechoic Shape: 3 - taller than wide Margin: 2 - lobulated or irregular 3 - extrathyroidal extension Echogenic foci: 1 - macrocalcifications 2 - rim calcification 3 - microcalcifications Risk for malignancy: TI-RADS 1: 0 points - (benign) <2% risk TI-RADS 2: 2 points - (not suspicious) <5% TI-RADS 3: 3 points - (mildly suspicious) <5% FNA when >/= 2.5cm Follow when >1.5cm at 1, 3 and 5 years TI-RADS 4: 4-6 points - (moderately suspicious) 5-20% FNA when >/= 1.5cm Follow when >1.0cm at 1, 2, 3 and 5 years TI-RADS 5: 7+ points - (highly suspicious) >20% FNA when >/= 1.0cm Follow when >0.5cm every year for up to 5 years Please note: There are other existing guidelines to classify thyroid nodules to determine need for FNA; and this decision will be deferred to the ordering physician. Note: There are existing guidelines to classify the thyroid nodule(s) and determine need for FNA and this decision will be deferred to the ordering clinician. Report Dictated on Electronically Signed By: Matheus Freire MD Electronically Signed Date/Time: 02/15/2024 2:26 PM [facility] RAD[facility]OLOGY [facility] 1985 [id number] Exam Date/Time: 02/15/2024 12:02 Procedure: US THYROID Ordering Provider: ZHANG MARK Reason For Exam: d44.0 ULTRASOUND THYROID: CLINICAL INDICATION: Thyroid nodules TECHNIQUE: Ultrasonographic evaluation of the thyroid including color flow imaging COMPARISON: 01/28/2023 FINDINGS: RIGHT LOBE: Absent LEFT LOBE: Size: Large. 1.3 x 1.5 x 5.2 cm previously 1.1 x 1.6 x 5.0 cm (AP x transverse x sagittal) Nodules: Detailed below Nodule Location: Mid Size: 0.6 x 0.6 x 0.7 cm (AP, transverse, sagittal) Composition: Solid (+2) Echogenicity: Hypoechoic (+2) Margins: Smooth (0) Calcifications: None (0) TI-RADS score*: 4 - moderately suspicious Change since last exam: Stable Nodule Location: Lower Size: 1.1 x 1.3 x 1.3 cm (AP, transverse, sagittal) Composition: Partially cystic (+1) Echogenicity: Hyperechoic (+1) Margins: Smooth (0) Calcifications: None (0) TI-RADS score*: 2 - not suspicious Change since last exam: Smaller Nodule Location: Lower Size: 0.6-0 0.8 x 0.6 cm (AP, transverse, sagittal) Composition: Partially cystic (+1) Echogenicity: Hypoechoic (+2) Margins: Smooth (0) Calcifications: None (0) TI-RADS score*: 3 - mildly suspicious Change since last exam: Smaller ISTHMUS: Normal. Nodules: None CERVICAL LYMPH NODES: No lymph node with pathologic features.(No lobulation or irregular cortex visualized, no heterogeneity, calcifications or cystic spaces or loss of fatty hilum, or round shape visualized.) [facility] RADIOLOGY [facility] Matheus Freire MD - 02/15/2024 Patient Name: CAROLINE ALLRED : 1985 [facility] And Clinict#: [id number] Exam Date/Time: 02/15/2024 12:02 Procedure: US THYROID Ordering Provider: ZHANG MARK Reason For Exam: d44.0 ULTRASOUND THYROID: CLINICAL INDICATION: Thyroid nodules TECHNIQUE: Ultrasonographic evaluation of the thyroid including color flow imaging COMPARISON: 01/28/2023 FINDINGS: RIGHT LOBE: Absent LEFT LOBE: Size: Large. 1.3 x 1.5 x 5.2 cm previously 1.1 x 1.6 x 5.0 cm (AP x transverse x sagittal) Nodules: Detailed below Nodule Location: Mid Size: 0.6 x 0.6 x 0.7 cm (AP, transverse, sagittal) Composition: Solid (+2) Echogenicity: Hypoechoic (+2) Margins: Smooth (0) Calcifications: None (0) TI-RADS score*: 4 - moderately suspicious Change since last exam: Stable Nodule Location: Lower Size: 1.1 x 1.3 x 1.3 cm (AP, transverse, sagittal) Composition: Partially cystic (+1) Echogenicity: Hyperechoic (+1) Margins: Smooth (0) Calcifications: None (0) TI-RADS score*: 2 - not suspicious Change since last exam: Smaller Nodule Location: Lower Size: 0.6-0 0.8 x 0.6 cm (AP, transverse, sagittal) Composition: Partially cystic (+1) Echogenicity: Hypoechoic (+2) Margins: Smooth (0) Calcifications: None (0) TI-RADS score*: 3 - mildly suspicious Change since last exam: Smaller ISTHMUS: Normal. Nodules: None CERVICAL LYMPH NODES: No lymph node with pathologic features.(No lobulation or irregular cortex visualized, no heterogeneity, calcifications or cystic spaces or loss of fatty hilum, or round shape visualized.) IMPRESSION: Nodular left lobe. Status post resection of right lobe.. Please correlate with laboratory values. Stable to smaller lesions on the left. Follow-up recommended. Provided below: TI-RADS score system to be utilized at the clinician's discretion. *TI-RADS (2017) Reference: Glory Blanca. ACR Thyroid Imaging, Reporting and Data System (TI-RADS): White Paper of the ACR TI-RADS Committee. J [facility]. August 2016 Thyroid nodule details (add points for total score): Composition(points): 1 - mixed cystic and solid 2 - solid Echogenicity: 1 - hyperechoic or isoechoic 2 - hypoechoic 3 - very hypoechoic Shape: 3 - taller than wide Margin: 2 - lobulated or irregular 3 - extrathyroidal extension Echogenic foci: 1 - macrocalcifications 2 - rim calcification 3 - microcalcifications Risk for malignancy: TI-RADS 1: 0 points - (benign) <2% risk TI-RADS 2: 2 points - (not suspicious) <5% TI-RADS 3: 3 points - (mildly suspicious) <5% FNA when >/= 2.5cm Follow when >1.5cm at 1, 3 and 5 years TI-RADS 4: 4-6 points - (moderately suspicious) 5-20% FNA when >/= 1.5cm Follow when >1.0cm at 1, 2, 3 and 5 years TI-RADS 5: 7+ points - (highly suspicious) >20% FNA when >/= 1.0cm Follow when >0.5cm every year for up to 5 years Please note: There are other existing guidelines to classify thyroid nodules to determine need for FNA; and this decision will be deferred to the ordering physician. Note: There are existing guidelines to classify the thyroid nodule(s) and determine need for FNA and this decision will be deferred to the ordering clinician. Report Dictated on Electronically Signed By: Matheus Freire MD Electronically Signed Date/Time: 02/15/2024 2:26 PM EDT [facility] [employer] Radiology Study observation (narrative) [employer] Thyroid glandOrdered By: Matheus Freire on 02-15-2024 [employer] Work Phone: Office Visiton 12-16-2023 Follow-up visit [id number] Peggy Allred 1985 F Date Provider Department Center 12/16/2023 [id number] MARTINEZ [facility] ONC None Family History Family Status - Relation Status Age at Mother Alive Father Alive Level of Service:91287 [place] OFFICE/OUTPATIENT ESTABLISHED LOW MDM 20 MIN Reason for Visit and Comments: Follow-up [980044] - Other neutropenia (CMS/HCC) (HCC) Normal [facility] [employer] System SHS Progress Noteon 12-16-2023 Progress Note Hematology/Oncology Follow up Visit Diagnosis/Treatment Summary: 1) cyclic neutropenia - Patient originally presented to her PCP in May 2018 with shoulder and hip pain. CBC showed an ANC of 900, wbc of 2.0, and plts 137K. Hb 13.6. She had been referred in the past to hematology for problems with neutropenia around 2010, but no diagnosis was rendered. She did have a positive DEVIN was referred to rheumatology. She was started on Plaquenil for an inflammatory arthritis. Other rheumatology results were largely unremarkable. Evaluation for neutropenia was unremarkable as well. It was noted that her neutropenia seemed to cycle in 3-4 weeks periods and she would have periods of complete recovery. ELANE mutation analysis was considered however the patient has been asymptomatic and has never had recurrent or severe infections, so she has been monitored off treatment. Her ANC has never been below 500 Interval History: Caroline Allred is a 38 y.o. female who comes in today for routine follow up. She feels well today and has no concerns. 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 She had a CBC with diff at [facility] in October which showed normal WBC and ANC, and her most recent CBC in October 2023 showed a WBC of 3.7 with ANC of 1700. She denies any infections or fevers. She denies any chest pain, shortness of breath, abdominal pain, weight loss. 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 She also has a component of fibromyalgia. Review of Systems Constitutional: Positive for fatigue. Negative for appetite change, chills, diaphoresis, fever and unexpected weight change. HENT: Negative for dental problem, mouth sores, nosebleeds, sneezing, sore throat, tinnitus, trouble swallowing and voice change. Eyes: Negative for photophobia, pain and visual disturbance. Respiratory: Negative for cough, shortness of breath and wheezing. Cardiovascular: Negative for chest pain, palpitations and leg swelling. Gastrointestinal: Negative for abdominal distention, abdominal pain, blood in stool, constipation, diarrhea, nausea and vomiting. Endocrine: Negative for cold intolerance and heat intolerance. Genitourinary: Negative for difficulty urinating, frequency, hematuria and urgency. Musculoskeletal: Positive for arthralgias. Negative for back pain, gait problem and myalgias. Skin: Negative for pallor and rash. Allergic/Immunologic: Negative for immunocompromised state. Neurological: Negative for dizziness, syncope, weakness, light-headedness, numbness and headaches. Hematological: Negative for adenopathy. Does not bruise/bleed easily. Psychiatric/Behavioral: Negative for confusion and sleep disturbance. The patient is not nervous/anxious. All other systems reviewed and are negative. 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 Social History Tobacco Use Smoking status: Never Smokeless tobacco: Never Substance Use Topics Alcohol use: Yes Comment: socially No Known Allergies Current Outpatient Medications Medication Sig Dispense Refill docusate sodium (Colace) 50 MG capsule Take by mouth 2 times daily. Glucosamine-Chondroitin 250-200 MG capsule Take 1 tablet by mouth 3 times daily. hydroxychloroquine (Plaquenil) 200 MG tablet Take by mouth. loratadine (Claritin) 10 MG tablet Take by mouth. norethindrone ac-eth estradio (Shannon ) 1.5-30 MG-MCG tablet tablet 1 tablet daily. omeprazole (PriLOSEC) [address] capsule Take 20 mg by mouth every morning (before breakfast). Do not crush or chew. No current facility-administered medications for this visit. Blood pressure 101/66, pulse 62, temperature 36.9 ?C (98.4 ?F), resp. rate 18, weight 51.9 kg (114 lb 6.4 oz), SpO2 100%. ECO Physical Exam Vitals and nursing note reviewed. Constitutional: General: She is not in acute distress. Appearance: Normal appearance. She is not ill-appearing. HENT: Head: Normocephalic and atraumatic. Nose: Nose normal. Mouth/Throat: Pharynx: Oropharynx is clear. No oropharyngeal exudate or posterior oropharyngeal erythema. Eyes: General: No scleral icterus. Extraocular Movements: Extraocular movements intact. Conjunctiva/sclera: Conjunctivae normal. Pupils: Pupils are equal, round, and reactive to light. Cardiovascular: Rate and Rhythm: Normal rate and regular rhythm. Heart sounds: Normal heart sounds. No murmur heard. Pulmonary: Effort: Pulmonary effort is no (more content not included)... Normal [facility] 36on 12-14-2023 36 Lab order for CBC wi th diff and needs drawn prior to office visit this week. Normal [facility] US Thyroid glandon 3 1. Status post right thyroidectomy. No sonographic abnormality in the surgical bed. 2. The prior 2.1 cm TI-RADS 2 cystic nodule in the mid left lobe is recategorized as TI-RADS 3 due to near-resolution of the cystic component and increased solid component. Surveillance is recommended with repeat ultrasound in one year. 3. Unchanged 1.4 cm TI-RADS 3 nodule in the inferior left lobe and newly measured 1.2 cm TI-RADS 3 nodule in the mid left lobe. TI-RADS Classification: Risk for malignancy: TI-RADS 1 = 0 points - (benign) <2% risk TI-RADS 2 = 2 points - (not suspicious) <5% TI-RADS 3 = 3 points - (mildly suspicious) <5% FNA when >/= 2.5cm Follow when >1.5cm at 1, 3 and 5 years TI-RADS 4 = 4-6 points - (moderately suspicious) 5-20% FNA when >/= 1.5cm Follow when >1.0cm at 1, 2, 3 and 5 years TI-RADS 5 = 7+ points - (highly suspicious) >20% FNA when >/= 1.0cm Follow when >0.5cm every year for up to 5 years Notes: 1. There are other existing guidelines to classify thyroid nodules to determine need for FNA; and this decision will be deferred to the ordering physician. 2. Nodule vascularity is no longer considered a useful characteristic to assess risk for malignancy. 3. Score and follow a maximum of four nodules 4. Significant growth is increase in two dimensions each by 20% 5. Follow up scanning of less than 1yr is not warranted 6. FNA biopsy of no more than two nodules with highest TI-RADS levels References: Glory Blanca. ACR Thyroid Imaging, Reporting and Data System (TI-RADS): White Paper of the ACR TI-RADS Committee. J Am [facility]. August 2016 https://radiopaedia.org/art icles/ehnigbn-uvacl-ttxkmqa qp-imd-qypx-system-tirads https://radiopaedia.org/art icles/fbc-qghypim-cbqkrqz-r ymivfysi-wry-ykun-system-ac r-ti-rads Report Dictated on Electronically Signed By: Juarez Otoole MD Electronically Signed Date/Time: 01/30/2023 10:52 AM [employer] Patient Name: CAROLINE ALLRED : 1985 Exam Date/Time: 01/28/2023 10:45 Procedure: US THYROID Ordering Provider: ZHANG MARK Reason For Exam: D44.0 THYROID ULTRASOUND CLINICAL INDICATION: Thyroid cancer Grayscale and color Doppler sonographic images of the thyroid were obtained. COMPARISON: 02/04/2022 FINDINGS: RIGHT LOBE: Surgically absent. LEFT LOBE: 1.1 x 1.6 x 5 cm ISTHMUS: 2 mm in thickness PARENCHYMA: The left thyroid lobe is normal in echogenicity. NODULES: Nodule 1: Nodule Location: Mid left lobe Size: 1.1 x 1.4 x 2.1 cm (AP x transverse x cephalocaudad)-previously 1.3 x 1.9 x 2.1 cm Composition: Solid (+2) Echogenicity: Hyperechoic or isoechoic (+1) Margins: Smooth (0) Echogenic Foci: None (0) TI-RADS category*: 3 - mildly suspicious Change since last exam: This nodule slightly smaller but decreased cystic component and increased solid component. Nodule 2: Nodule Location: Lower left Size: 0.7 x 1.0 x 1.2 cm (AP x transverse x cephalocaudad) Composition: Solid (+2) Echogenicity: Hyperechoic or isoechoic (+1) Margins: Smooth (0) Echogenic Foci: None (0) TI-RADS category*: 3 - mildly suspicious Change since last exam: Not applicable - not previously identified or measured Nodule 3: Nodule Location: Lower left lobe Size: 1.0 x 1.4 x 1.4 cm (AP x transverse x cephalocaudad) Composition: Solid (+2) Echogenicity: Hyperechoic or isoechoic (+1) Margins: Smooth (0) Echogenic Foci: None (0) TI-RADS category*: 3 - mildly suspicious Change since last exam: None (previously 1 x 1.1 x 1.3 cm) [facility] RADIOLOGY SYSTEM Juarez Otoole M D - 01/30/2023 Patient Name: CAROLINE ALLRED : 1985 [id number] Exam Date/Time: 01/28/2023 10:45 Procedure: US THYROID Ordering Provider: ZHANG MARK Reason For Exam: D44.0 THYROID ULTRASOUND CLINICAL INDICATION: Thyroid cancer Grayscale and color Doppler sonographic images of the thyroid were obtained. COMPARISON: 02/04/2022 FINDINGS: RIGHT LOBE: Surgically absent. LEFT LOBE: 1.1 x 1.6 x 5 cm ISTHMUS: 2 mm in thickness PARENCHYMA: The left thyroid lobe is normal in echogenicity. NODULES: Nodule 1: Nodule Location: Mid left lobe Size: 1.1 x 1.4 x 2.1 cm (AP x transverse x cephalocaudad)-previously 1.3 x 1.9 x 2.1 cm Composition: Solid (+2) Echogenicity: Hyperechoic or isoechoic (+1) Margins: Smooth (0) Echogenic Foci: None (0) TI-RADS category*: 3 - mildly suspicious Change since last exam: This nodule slightly smaller but decreased cystic component and increased solid component. Nodule 2: Nodule Location: Lower left Size: 0.7 x 1.0 x 1.2 cm (AP x transverse x cephalocaudad) Composition: Solid (+2) Echogenicity: Hyperechoic or isoechoic (+1) Margins: Smooth (0) Echogenic Foci: None (0) TI-RADS category*: 3 - mildly suspicious Change since last exam: Not applicable - not previously identified or measured Nodule 3: Nodule Location: Lower left lobe Size: 1.0 x 1.4 x 1.4 cm (AP x transverse x cephalocaudad) Composition: Solid (+2) Echogenicity: Hyperechoic or isoechoic (+1) Margins: Smooth (0) Echogenic Foci: None (0) TI-RADS category*: 3 - mildly suspicious Change since last exam: None (previously 1 x 1.1 x 1.3 cm) IMPRESSION: 1. Status post right thyroidectomy. No sonographic abnormality in the surgical bed. 2. The prior 2.1 cm TI-RADS 2 cystic nodule in the mid left lobe is recategorized as TI-RADS 3 due to near-resolution of the cystic component and increased solid component. Surveillance is recommended with repeat ultrasound in one year. 3. Unchanged 1.4 cm TI-RADS 3 nodule in the inferior left lobe and newly measured 1.2 cm TI-RADS 3 nodule in the mid left lobe. TI-RADS Classification: Risk for malignancy: TI-RADS 1 = 0 points - (benign) <2% risk TI-RADS 2 = 2 points - (not suspicious) <5% TI-RADS 3 = 3 points - (mildly suspicious) <5% FNA when >/= 2.5cm Follow when >1.5cm at 1, 3 and 5 years TI-RADS 4 = 4-6 points - (moderately suspicious) 5-20% FNA when >/= 1.5cm Follow when >1.0cm at 1, 2, 3 and 5 years TI-RADS 5 = 7+ points - (highly suspicious) >20% FNA when >/= 1.0cm Follow when >0.5cm every year for up to 5 years Notes: 1. There are other existing guidelines to classify thyroid nodules to determine need for FNA; and this decision will be deferred to the ordering physician. 2. Nodule vascularity is no longer considered a useful characteristic to assess risk for malignancy. 3. Score and follow a maximum of four nodules 4. Significant growth is increase in two dimensions each by 20% 5. Follow up scanning of less than 1yr is not warranted 6. FNA biopsy of no more than two nodules with highest TI-RADS levels References: Glory Blanca. ACR Thyroid Imaging, Reporting and Data System (TI-RADS): White Paper of the ACR TI-RADS Committee. J Am [facility]. August 2016 https://radiopaedia.org/art icles/weahsla-edcss-qcbgprg mo-aoe-dgii-system-ti rads https://radiopaedia.org/art icles/vrl-wnpszwx-mfllrge-r hvqcoekv-cuv-yguj-sys zds-kav-hq-rads Report Dictated on Electronically Signed By: Juarez Otoole MD Electronically Signed Date/Time: 01/30/2023 10:52 AM EDT [employer] US Thyroid glandOrdered By: Juarez Otoole on 01-30-2023 [employer] Work Phone: US Thyroid glandon 3 Radiology Study observation (narrative) [employer] CBC W Auto Differential pane l (Bld)Ordered By: Ino Portillo on 07-04-2022 Basophils (Bld) [#/Vol] 0.1 10*3/uL 0.0 - 0.2 10*3/uL [facility] Basophils/100 WBC (Bld) 1.3 % 0.0 - 2.0 % [facility] Eosinophils (Bld) [#/Vol] 0.1 10*3/uL 0.0 - 0.5 10*3/uL [facility] Eosinophils/100 WBC (Bld) 2.8 % 1.0 - 6.0 % [facility] Erythrocyte distribution width (RBC) [Ratio] 12.2 % 11.5 - 14.5 % [facility] Hematocrit (Bld) [Volume fraction] 37.9 % 35.0 - 47.0 % [facility] Hemoglobin (Bld) [Mass/Vol] 14.1 g/dL 11.7 - 16.0 g/dL [facility] Immature granulocytes (Bld) [#/Vol] 0.0 10*3/uL NINF - 0.0 10*3/uL [facility] Immature granulocytes/100 WBC (Bld) 0.0 % NINF - 0.0 % [facility] Interpretation and review of laboratory results Abnormal [facility] Lymphocytes (Bld) [#/Vol] 1.4 10*3/uL 1.0 - 4.3 10*3/uL [facility] Lymphocytes/100 WBC (Bld) 35.8 % 20.0 - 40.0 % [facility] MCH (RBC) [Entitic mass] 32.2 pg 26.0 - 34.0 pg [facility] MCHC (RBC) [Mass/Vol] 37.2 % High 32.0 - 36.0 % [facility] MCV (RBC) [Entitic vol] 86.5 fL 80.0 - 98.0 fL [facility] Monocytes (Bld) [#/Vol] 0.2 10*3/uL 0.0 - 0.8 10*3/uL [facility] Monocytes/100 WBC (Bld) 4.9 % 2.0 - 10.0 % [facility] Neutrophils (Bld) [#/Vol] 2.2 10*3/uL 1.8 - 7.0 10*3/uL [facility] Neutrophils/100 WBC (Bld) 55.2 % 40.0 - 80.0 % [facility] Platelet mean volume (Bld) [Entitic vol] 10.7 fL 7.4 - 12.4 fL [facility] Comment on above: MPV is a calculated measurement using platelet volume ratio Platelets (Bld) [#/Vol] 200 10*3/uL 140 - 440 10*3/uL [facility] RBC (Bld) [#/Vol] 4.38 10*6/uL 3.8 - 5.20 10*6/uL [facility] WBC (Bld) [#/Vol] 3.9 10*3/uL 3.6 - 10.7 10*3/uL [facility] TSHon 07-04-2022 TSH Qn 1.868 m[IU]/L [facility] TSH Qnon 07-04-2022 Interpretation and review of laboratory results Normal [facility] Airwayon 05-22-2022 JEFFREY Davis CRNA 05/22/2022 11:18 AM Airway Date/Time: 05/22/2022 11:06 AM Urgency: scheduled Airway not difficult General Information and Staff Patient location during procedure: Procedural Anesthesiologist: Yobani Franco Jr., MD Resident/SOFTBALL UMPIRE: JEFFREY Davis CRNA Performed: SOFTBALL UMPIRE Indications and Patient Condition Indications for airway management: anesthesia Sedation level: Asleep Preoxygenated: yes Patient position: sniffing MILS maintained throughout Mask difficulty assessment: 1 - vent by mask Final Airway Details Final airway type: endotracheal airway Successful airway: NIM tube Cuffed: yes Successful intubation technique: video laryngoscopy Blade: Sherice Blade size: #3 ETT size (mm): 7.0 Cormack-Lehane Classification: grade I - full view of glottis Placement verified by: chest auscultation and capnometry Measured from: lips ETT to lips (cm): 22 Number of attempts at approach: 1 [facility] Laboratory - Chemistry and C hemistry - challengeOrdered By: Elke Villeda on 05-22-2022 Beta HCG ( test) Ql Negative Negative [facility] Comment on above: Please note: Very di lute urine specimens, as indicated by a low specific gravity, may not contain bottling equipment sales representative levels of hCG. If is still suspected, a first morning urine specimen should be collected 48 hours later and tested. Beta HCG ( test) Ql (U) is the most common reason for HCG in urine, although choriocarcinoma, hydatidiform mole, and certain nontrophoblastic malignancies also result in detectable urinary HCG levels. Sensitivity = 20mIU/mL. [employer] No Panel InformationOrdered By: Elke Villeda on 05-22-2022 [facility] Medical Cytologyon 2 Medical Cytology [facility] F [id number] DEPARTMENT OF PATHOLOGY AND [facility] LABORATORY MEDICINE [address] [place] [address] FINAL MEDICAL CYTOLOGY REPORT NAME: CAROLINE ALLRED : 1985 36 Y F BILLING NO.: [id number] LOCATION: [facility] ULTRASOUND PROCEDURE 02/18/2022 DATE: PHYSICIAN: JAYCEE ZHANG D.O. RECEIVED DATE: 02/18/2022 ATTENDING: JAYCEE ZHANG DO REPORT DATE: 02/20/2022 COPIES TO: STEFAN CLAROS MD CLINICAL DATA: Thyroid Nodule DIAGNOSIS Diagnostic Category: ATYPIA OF UNDETERMINED SIGNIFICANCE. NOTE: Reflex Afirma testing will be sent on all cases diagnosed as Atypia of Undetermined Significance/Follicular Lesion of Undetermined Significance or Suspicious for a Follicular/Hurthle Cell Neoplasm with results to follow. Comment: According to the [place] System for Reporting Thyroid Cytopathology, the implied risk of malignancy associated with the general categories are as follows: Benign 0-3%, Atypia of Undetermined Significance 5-15%, Follicular Lesion of Undetermined Significance 5-15%, Follicular Neoplasm or Suspicious for a Follicular Neoplasm 15-30%, Suspicious for Malignancy 60-75% and Malignancy 97-99%. Malignancy rates at individual institutions may differ from these published rates. SPECIMEN: FINE NEEDLE ASPIRATION-THYROID, RIGHT PROCEDURE(S): FINE NEEDLE ASPIRATION GROSS DESCRIPTION: 20 ml, Red fluid, w/cytolyt Materials Prepared & Examined: Cell Blocks . . . . . . . . . . . . 1 Smear Slides . . . . . . . . . . . 6 Special Stains . . . . . . . . . . DQ , SJK Screened by RAÚL BARRETO M.D. Printed February 20, 2022 at 11:36:25 AM Disclaimer The following statement applies to all immunohistochemistry, in situ hybridization, molecular studies, and immunofluorescence testing. The use of one or more reagents in the above tests is regulated as an analyte specific reagent (ASR). These tests were developed and their performance characteristics determined by the clinical laboratories of [facility]. They have not been cleared by the US Food and Drug Administration (FDA). The FDA has determined that such clearance or approval is not necessary. All the above immunostains were performed on paraffin embedded tissue. Appropriate positive and negative controls (where applicable) were run in parallel with the patient's specimen; these controls showed expected staining pattern, with acceptable intensity of staining. Immunohistochemical assays have not been validated on decalcified tissues. Results should be interpreted with caution given the raised possibility of false negativity on decalcified specimens. Case reviewed at [address] [address]. DEPARTMENT OF PATHOLOGY AND LABORATORY MEDICINE [place], [place] [address] [email or web address] Normal [facility] US FINE NEEDLE ASPIRATIONon 02-18-2022 Patient Name: CAROLINE ALLRED Ultrasound ACCESSION EXAM DATE/TIME PROCEDURE ORDERING PROVIDER [id number] 02/18/2022 12:11 EDT US Fine Needle VICENTE, JAYCEE S Aspiration w/ Image Guide CPT code 84992 Reason For Exam (US Fine Needle Aspiration w/ Image Guide) rt mid lobe fna Report CLINICAL HISTORY: Thyroid nodule. Procedures: Ultrasound-guided thyroid FNA. Physician: Dr. Stefan Claros MEDICATIONS: Lidocaine. EBL: Minimal. Contrast: None. Specimen sent: FNA biopsies of a right thyroid nodule. COMPLICATIONS: None Procedural details: All of the risk, benefits, and alternative treatments were explained to the patient and informed consent was obtained and documented. The patient was brought into the ultrasound suite and placed in a supine position. The patient's thyroid was interrogated with ultrasound and a dominant thyroid nodule suitable for biopsy was identified. A timeout was performed. The overlying skin was then prepped and draped in the usual sterile fashion. The overlying subcutaneous tissues were anesthetized using 1% lidocaine. Under real-time ultrasound guidance, a 25-gauge 7.5 cm needle was advanced into a Right thyroid nodule. 3 sets of FNA passes were performed. All needles were then removed and hemostasis obtained using manual pressure. FINDINGS: Dominant nodule within Right lobe of the thyroid. Impression: Successful uncomplicated ultrasound-guided thyroid FNA of Right thyroid nodule. Ultrasound Report Report Dictated on --- Final --- Dictating Physician: MD CLAROS VICTOR Signed Date and Time: 02/18/2022 5:02 pm Signed by: MD CLAROS VICTOR Transcribed Date and Time: 02/18/2022 5:03 [facility] Stefan Claros MD - 02/18/2022 Patient Name: CAROLINE ALLRED Ultrasound ACCESSION EXAM DATE/TIME PROCEDURE ORDERING PROVIDER [id number] 02/18/2022 12:11 EDT US Fine Needle VICENTE, JAYCEE S Aspiration w/ Image Guide CPT code 35331 Reason For Exam (US Fine Needle Aspiration w/ Image Guide) rt mid lobe fna Report CLINICAL HISTORY: Thyroid nodule. Procedures: Ultrasound-guided thyroid FNA. Physician: Dr. Stefan Claros MEDICATIONS: Lidocaine. EBL: Minimal. Contrast: None. Specimen sent: FNA biopsies of a right thyroid nodule. COMPLICATIONS: None Procedural details: All of the risk, benefits, and alternative treatments were explained to the patient and informed consent was obtained and documented. The patient was brought into the ultrasound suite and placed in a supine position. The patient's thyroid was interrogated with ultrasound and a dominant thyroid nodule suitable for biopsy was identified. A timeout was performed. The overlying skin was then prepped and draped in the usual sterile fashion. The overlying subcutaneous tissues were anesthetized using 1% lidocaine. Under real-time ultrasound guidance, a 25-gauge 7.5 cm needle was advanced into a Right thyroid nodule. 3 sets of FNA passes were performed. All needles were then removed and hemostasis obtained using manual pressure. FINDINGS: Dominant nodule within Right lobe of the thyroid. Impression: Successful uncomplicated ultrasound-guided thyroid FNA of Right thyroid nodule. Ultrasound Report Report Dictated on --- Final --- Dictating Physician: MD CLAROS VICTOR Signed Date and Time: 02/18/2022 5:02 pm Signed by: MD CLAROS VICTOR Transcribed Date and Time: 02/18/2022 5:03 [facility] Work Phone: Radiology Study observation (narrative) [facility] Work Phone: US FINE NEEDLE ASPIRATIONOrd ered By: Stefan Claros on 02-18-2022 [facility] Work Phone: US Fine Needle Aspiration w/ Image Guide 1st Lesionon 02-18-2022 US Fine Needle Aspiration w/ Image Guide 1st Lesion Patient Name: CAROLINE ALLRED Ultrasound ACCESSION EXAM DATE/TIME PROCEDURE ORDERING PROVIDER [id number] 02/18/2022 12:11 EDT US Fine Needle VICENTE, JAYCEE S Aspiration w/ Image Guide CPT code 67865 Reason For Exam (US Fine Needle Aspiration w/ Image Guide) rt mid lobe fna Report CLINICAL HISTORY: Thyroid nodule. Procedures: Ultrasound-guided thyroid FNA. Physician: Dr. Stefan Claros MEDICATIONS: Lidocaine. EBL: Minimal. Contrast: None. Specimen sent: FNA biopsies of a right thyroid nodule. COMPLICATIONS: None Procedural details: All of the risk, benefits, and alternative treatments were explained to the patient and informed consent was obtained and documented. The patient was brought into the ultrasound suite and placed in a supine position. The patient's thyroid was interrogated with ultrasound and a dominant thyroid nodule suitable for biopsy was identified. A timeout was performed. The overlying skin was then prepped and draped in the usual sterile fashion. The overlying subcutaneous tissues were anesthetized using 1% lidocaine. Under real-time ultrasound guidance, a 25-gauge 7.5 cm needle was advanced into a Right thyroid nodule. 3 sets of FNA passes were performed. All needles were then removed and hemostasis obtained using manual pressure. FINDINGS: Dominant nodule within Right lobe of the thyroid. Impression: Successful uncomplicated ultrasound-guided thyroid FNA of Right thyroid nodule. Ultrasound Report Report Dictated on Final Dictating Physician: MD CLAROS VICTOR Signed Date and Time: 02/18/2022 5:02 pm Signed by: MD CLAROS VICTOR Transcribed Date and Time: 02/18/2022 5:03 [facility] US Thyroid/Parathyroidon US Thyroid/Parathyroid Patient Name: CAROLINE ALLRED Ultrasound ACCESSION EXAM DATE/TIME PROCEDURE ORDERING PROVIDER [id number] 02/04/2022 08:15 EDT US Parathyroid [facility] CPT code 05208 Reason For Exam (US Parathyroid) thyroid nodule Report ULTRASOUND THYROID: CLINICAL INDICATION: 36-year-old; thyroid nodule follow-up TECHNIQUE: Ultrasonographic evaluation of the thyroid including color flow imaging COMPARISON: 11/27/2020 FINDINGS: RIGHT LOBE: Size: 1.5 x 2.0 x 5.2 cm (AP x transverse x sagittal); previous measurement 1.6 x 2.6 x 4.8 cm Echotexture: Heterogeneous LEFT LOBE: Size: 2.1 x 2.1 x 5.3 cm (AP x transverse x sagittal); previous measurement 2.0 x 2.7 x 5.3 cm Echotexture: Heterogeneous ISTHMUS: 2 mm. Nodule Location: Right mid/lower lobe Size: 1.1 x 1.5 x 2.8 cm (AP, transverse, sagittal) Composition: Partially cystic (+1) Echogenicity: Hypoechoic (+2) Margins: Smooth (0) Calcifications: None (0) TI-RADS score*: 3 - mildly suspicious Change since last exam: Prior measurement of 1.2 x 1.6 x 2.1 cm; INCREASED Nodule Location: Left mid lobe Size: 1.3 x 1.9 x 2.1 cm (AP, transverse, sagittal) Composition: Partially cystic (+1) Echogenicity: Anechoic (0) Margins: Smooth (0) Calcifications: None (0) TI-RADS score*: 2 - not suspicious Change since last exam: Prior measurement of 1.7 x 2.5 x 2.8 cm; DECREASED Technologist reports fine-needle aspiration on left lobe cystic lesion, correlate with pathology Ultrasound Report Nodule Location: Left lower lobe Size: 1.3 x 1.0 x 1.1 cm (AP, transverse, sagittal) Composition: Solid (+2) Echogenicity: Isoechoic (+1) Margins: Smooth (0) Calcifications: None (0) TI-RADS score*: 3 - mildly suspicious Change since last exam: Prior measurement of 1.2 x 1.1 x 1.1 cm; NO SIGNIFICANT CHANGE CERVICAL LYMPH NODES: None identified. IMPRESSION: 1. Bilateral thyroid nodules, as above. 2. The right thyroid nodule (TI-RADS 3) previously measured up to 2.1 cm and now measures 2.8 cm. This now meet the criteria for fine-needle aspiration (>2.5cm). Note: There are existing guidelines to classify the thyroid nodule(s) and determine need for FNA and this decision will be deferred to the ordering clinician. *TI-RADS (2017) Reference: Glory Blanca. ACR Thyroid Imaging, Reporting and Data System (TI-RADS): White Paper of the ACR TI-RADS Committee. J Am [facility]. August 2016 Thyroid nodule details (add points for total score): Composition(points): 1 - mixed cystic and solid 2 - solid Echogenicity:. 1 - hyperechoic or isoechoic 2 - hypoechoic 3 - very hypoechoic Shape: 3 - taller than wide Margin: 2 - lobulated or irregular 3 - extrathyroidal extension Echogenic foci: 1 - macrocalcifications 2 - rim calcification 3 - microcalcifications Risk for malignancy: TI-RADS 1: 0 points - (benign) <2% risk TI-RADS 2: 2 points - (not suspicious) <5% TI-RADS 3: 3 points - (mildly suspicious) <5% FNA when >/= 2.5cm Follow when >1.5cm at 1, 3 and 5 years TI-RADS 4: 4-6 points - (moderately suspicious) 5-20% FNA when >/= 1.5cm Follow when >1.0cm at 1, 2, 3 and 5 years TI-RADS 5: 7+ points - (highly suspicious) >20% FNA when >/= 1.0cm Follow when >0.5cm every year for up to 5 years Please note: There are other existing guidelines to classify thyroid nodules to determine need for FNA; and this decision will be deferred to the ordering physician. Ultrasound Report Report Dictated on Final Dictating Physician: MD DAWSON JENNIFER R Signed Date and Time: 02/05/2022 9:34 am Signed by: MD DAWSON JENNIFER R Transcribed Date and Time: 02/05/2022 9:35 Normal [facility] UA DIP, URINE (POC)on 2021 BILIRUBIN UA (POCT) Small Abnormal Negative [facility] CLARITY UA (POCT) Clear [facility] COLOR UA (POCT) Yellow [facility] GLUCOSE UA (POCT) Negative Negative mg/dL [facility] HEMOGLOBIN/BLOOD UA (POCT) Trace-intact Abnormal Negative [facility] KETONE UA (POCT) Negative Negative mg/dL [facility] LEUKOCYTES UA (POCT) Negative Negative [facility] NITRITE UA (POCT) Negative Negative [facility] PH UA (POCT) 6.0 4.5 - 8.0 [facility] Protein Ql (U) Trace Abnormal Negative mg/dL [facility] SPECIFIC GRAVITY UA (POCT) >=1.030 1.005 - 1.030 [facility] UROBILINOGEN UA (POCT) 0.2 E.U./dL Normal E.U./dL [facility] US HEAD NECK SOFT TISSUE THY ROIDOrdered By: Tiffany Fowler on 11-27-2020 Patient Name: CAROLINE ALLRED Ultrasound ACCESSION EXAM DATE/TIME PROCEDURE ORDERING PROVIDER [id number] 11/27/2020 08:23 EDT US Head/Neck Soft Tissue NADYA FOWLER CAROLINE CPT code 49199 Reason For Exam (US Head/Neck Soft Tissue) 2.5cm oval T1 hyper intense and T2 hypo intense mass along ledt side of the trachea seen on MRI at [facility]. MRI reports scanned under media Report Indication: Thyroid nodules. Thyroid ultrasound examination The right thyroid lobe measures 1.6 x 2.6 x 4.8 cm. In the midportion of the right lobe is a 1.2 x 1.6 x 2.1 cm partially cystic lesion with hypoechoic components and smooth borders (TI RADS three). The left lobe measures 1.7 x 2.5 x 2.8 cm. In the mid to inferior aspect of the left lobe is a 1.7 x 2.5 x 2.8 cm primarily cystic lesion with some internal echoes and thin internal hyperechoic nodule. (TI RADS two). In the inferior aspect the left lobe is a 1.2 x 1.1 x 1.1 cm solid isoechoic to hyperechoic nodule with smooth borders (TI RADS three). The thyroid isthmus measures 1.7 mm in thickness. IMPRESSION: Bilateral thyroid nodules, as described above. *TI-RADS (2017) Reference: Quoc Blanca et al ACR Thyroid Imaging, Reporting and Data System (TI-RADS): White Paper of the ACR TI-RADS Committee. J Am [facility]. August 2016 Thyroid nodule details (add points for total score): Composition(points): 1 - mixed cystic and solid 2 - solid Echogenicity: 1 - hyperechoic or isoechoic 2 - hypoechoic 3 - very hypoechoic Shape: 3 - taller than wide Margin: 2 - lobulated or irregular 3 - extrathyroidal extension Echogenic foci: 1 - macrocalcifications 2 - rim calcification 3 - microcalcifications Ultrasound Report Risk for malignancy: TI-RADS 1 - 0 points - (benign) <2% risk TI-RADS 2 - 2 points - (not suspicious) <5% TI-RADS 3 - 3 points - (mildly suspicious) <5% - Follow 1, 3 and 5 years TI-RADS 4 - 4-6 points - (moderately suspicious) 5-20% - Follow at 1, 2, 3 and 5 years TI-RADS 5 - 7+ points - (highly suspicious) >20% - Follow every year for up to 5 years Notes: Color flow is no longer used for risk Highest risk factors: microcalcifications, lobular borders, solid hypoechoic No biopsy below 1cm in maximum dimension Follow maximum of 4 nodules Significant growth is increase in two dimensions each by 20% Follow up scanning of less than 1yr is not warranted If TI-RADS level changes but FNA still not recommended, then follow in 1 year Biopsy of no more than 2 nodules with highest TI-RADS level Report Dictated on --- Final --- Dictating Physician: MD ZAFAR LAURA Signed Date and Time: 11/27/2020 8:52 am Signed by: MD ZAFAR LAURA Transcribed Date and Time: 11/27/2020 8:53 [facility] Work Phone: [facility], [facility] Incoming Radiology Results From [facility] - 11/27/2020 8:53 AM EDT Patient Name: CAROLINE ALLRED Ultrasound ACCESSION EXAM DATE/TIME PROCEDURE ORDERING PROVIDER [id number] 11/27/2020 08:23 EDT US Head/Neck Soft Tissue NADYA FOWLER CAROLINE CPT code 30105 Reason For Exam (US Head/Neck Soft Tissue) 2.5cm oval T1 hyper intense and T2 hypo intense mass along ledt side of the trachea seen on MRI at [facility]. MRI reports scanned under media Report Indication: Thyroid nodules. Thyroid ultrasound examination The right thyroid lobe measures 1.6 x 2.6 x 4.8 cm. In the midportion of the right lobe is a 1.2 x 1.6 x 2.1 cm partially cystic lesion with hypoechoic components and smooth borders (TI RADS three). The left lobe measures 1.7 x 2.5 x 2.8 cm. In the mid to inferior aspect of the left lobe is a 1.7 x 2.5 x 2.8 cm primarily cystic lesion with some internal echoes and thin internal hyperechoic nodule. (TI RADS two). In the inferior aspect the left lobe is a 1.2 x 1.1 x 1.1 cm solid isoechoic to hyperechoic nodule with smooth borders (TI RADS three). The thyroid isthmus measures 1.7 mm in thickness. IMPRESSION: Bilateral thyroid nodules, as described above. *TI-RADS (2017) Reference: Quoc Blanca et al ACR Thyroid Imaging, Reporting and Data System (TI-RADS): White Paper of the ACR TI-RADS Committee. J [facility]. August 2016 Thyroid nodule details (add points for total score): Composition(points): 1 - mixed cystic and solid 2 - solid Echogenicity: 1 - hyperechoic or isoechoic 2 - hypoechoic 3 - very hypoechoic Shape: 3 - taller than wide Margin: 2 - lobulated or irregular 3 - extrathyroidal extension Echogenic foci: 1 - macrocalcifications 2 - rim calcification 3 - microcalcifications Ultrasound Report Risk for malignancy: TI-RADS 1 - 0 points - (benign) <2% risk TI-RADS 2 - 2 points - (not suspicious) <5% TI-RADS 3 - 3 points - (mildly suspicious) <5% - Follow 1, 3 and 5 years TI-RADS 4 - 4-6 points - (moderately suspicious) 5-20% - Follow at 1, 2, 3 and 5 years TI-RADS 5 - 7+ points - (highly suspicious) >20% - Follow every year for up to 5 years Notes: Color flow is no longer used for risk Highest risk factors: microcalcifications, lobular borders, solid hypoechoic No biopsy below 1cm in maximum dimension Follow maximum of 4 nodules Significant growth is increase in two dimensions each by 20% Follow up scanning of less than 1yr is not warranted If TI-RADS level changes but FNA still not recommended, then follow in 1 year Biopsy of no more than 2 nodules with highest TI-RADS level Report Dictated on --- Final --- Dictating Physician: MD ZAFAR LAURA Signed Date and Time: 11/27/2020 8:52 am Signed by: MD ZAFAR LAURA Transcribed Date and Time: 11/27/2020 8:53 [facility] Work Phone: [phone] [facility] Work Phone: [phone] CBC Auto Differentialon 03-0 Absolute Baso # 0.0 10*3/uL 0 - 0.2 10*3/uL [facility] Work Phone: [phone] Absolute Neut # 3.4 10*3/uL 1.8 - 7 10*3/uL [facility] Work Phone: [phone] Basophils/100 WBC (Bld) 0.7 % 0 - 2 % [facility] Work Phone: [phone] Eosinophils (Bld) [#/Vol] 0.1 10*3/uL 0 - 0.5 10*3/uL [facility] Work Phone: Eosinophils/100 WBC (Bld) 1.8 % 1 - 6 % [facility] Work Phone: Erythrocyte distribution width (RBC) [Ratio] 13.0 % 11.5 - 14.5 % [facility] Work Phone: 1 Granulocytes/100 WBC (Bld) 63.4 % 40 - 80 % [facility] Work Phone: Hematocrit (Bld) [Volume fraction] 37.0 % 35 - 47 % [facility] Work Phone: 1 Hemoglobin (Bld) [Mass/Vol] 12.5 g/dL 11.7 - 16 g/dL [facility] Work Phone: Lymphocytes (Bld) [#/Vol] 1.5 10*3/uL 1 - 4.3 10*3/uL [facility] Work Phone: 1) Lymphocytes/100 WBC (Bld) 28.1 % 20 - 40 % [facility] Work Phone: MCH (RBC) [Entitic mass] 30.6 pg 26 - 34 pg [facility] Work Phone: MCHC (RBC) [Mass/Vol] 33.8 % 32 - 36 % [facility] Work Phone: 1 MCV (RBC) [Entitic vol] 90.4 fL 79 - 98 fL [facility] Work Phone: ) Monocytes (Bld) [#/Vol] 0.3 10*3/uL 0 - 0.8 10*3/uL [facility] Work Phone: ) Monocytes/100 WBC (Bld) 6.0 % 2 - 10 % [facility] Work Phone: Platelet mean volume (Bld) [Entitic vol] 9.0 fL 7.4 - 10.4 fL [facility] Work Phone: ) 22 Platelets (Bld) [#/Vol] 187 10*3/uL 140 - 440 10*3/uL [facility] Work Phone: ) 22 RBC (Bld) [#/Vol] 4.09 10*6/uL 3.8 - 5.2 10*6/uL [facility] Work Phone: ) 22 WBC (Bld) [#/Vol] 5.4 10*3/uL 3.6 - 10.7 10*3/uL [facility] Work Phone: [phone] Test Performed by [facility], [address] , [place], [place] [address] [facility] Work Phone: [phone] Comprehensive Metabolic Pane tr 07-03-2020 Albumin [Mass/Vol] 4.2 g/dL 3.5 - 5 g/dL [facility] Work Phone: [phone] ALP [Catalytic activity/Vol] 42 U/L 38 - 126 U/L [facility] Work Phone: [phone] ALT [Catalytic activity/Vol] 15 U/L 0 - 34 U/L [facility] Work Phone: [phone] Comment on above: The ALT test is perf ormed by an updated assay method. Please note that the reference intervals have been changed and are now sex specific. Anion gap [Moles/Vol] 8 mmol/L 3 - 13 mmol/L [facility] Work Phone: [phone] AST [Catalytic activity/Vol] 24 U/L 15 - 46 U/L [facility] Work Phone: [phone] Bilirubin Ql (U) 0.4 mg/dL 0.2 - 1.3 mg/dL [facility] Work Phone: [phone] Calcium [Mass/Vol] 9.6 mg/dL 8.4 - 10. 4 mg/dL [facility] Work Phone: [phone] Chloride [Moles/Vol] 108 mmol/L High 98 - 10 7 mmol/L [facility] Work Phone: [phone] CO2 [Moles/Vol] 25 mmol/L 22 - 30 mmol/L [facility] Work Phone: [phone] Creatinine [Mass/Vol] 0.74 mg/dL 0.52 - 1.25 mg/dL [facility] Work Phone: [phone] EGFR IF NonAfrican Portuguese >90.0 >60 mL/min [facility] Work Phone: [phone] Comment on above: KDIGO guidelines pro vide the following GFR categories: Stage GFR(ml/min/1.73 m2) Terms G1 >=90 Normal or high G2 60-89 Mildly decreased* G3a 45-59 Mildly to moderately decreased G3b 30-44 Moderately to severely decreased G4 15-29 Severely decreased G5 <15 Kidney failure *Relative to young adult level. In the absence of evidence of kidney damage, neither GFR category G1 nor G2 fulfill the criteria for CKD. The CKD-EPI equation is validated in individuals 18 years of age and older. Currently the best equation for estimating glomerular filtration rate (GFR) from serum creatinine in children is the Bedside Durand equation. It is less accurate in patients with extremes of muscle mass, restriction of dietary protein, ingestion of creatine, extra-renal metabolism of creatinine, or treatment with medications that affect renal tubular creatinine secretion. GFR/1.73 sq M predicted among blacks MDRD (S/P/Bld) [Vol rate/Area] mL/min/{1.73_m2} >60 mL/min [facility] Work Phone: Glucose [Mass/Vol] 103 mg/dL High 70 - 100 mg/dL [facility] Work Phone: Interpretation and review of laboratory results Abnormal [facility] Work Phone: Potassium [Moles/Vol] 4.4 mmol/L 3.5 - 5.1 mmol/L [facility] Work Phone: Protein [Mass/Vol] 7.3 g/dL 6.3 - 8.2 g/dL [facility] Work Phone: Sodium [Moles/Vol] 142 mmol/L 135 - 145 mmol/L [facility] Work Phone: Urea nitrogen [Mass/Vol] 11 mg/dL 7 - 20 mg/dL [facility] Work Phone: Test Performed by [facility] [address] [place] [address] [facility] Work Phone: [phone] CBC Auto Differentialon 06-04 Absolute Baso # 0.0 10*3/uL 0 - 0.2 10*3/uL [facility] Work Phone: [phone] Absolute Neut # 1.6 10*3/uL Low 1.8 - 7 10*3/uL [facility] Work Phone: Basophils/100 WBC (Bld) 0.9 % 0 - 2 % [facility] Work Phone: [phone] Eosinophils (Bld) [#/Vol] 0.1 10*3/uL 0 - 0.5 10*3/uL [facility] Work Phone: [phone] Eosinophils/100 WBC (Bld) 2.7 % 1 - 6 % [facility] Work Phone: [phone] Erythrocyte distribution width (RBC) [Ratio] 12.8 % 11.5 - 14.5 % [facility] Work Phone: [phone] Granulocytes/100 WBC (Bld) 48.5 % 40 - 80 % [facility] Work Phone: [phone] Hematocrit (Bld) [Volume fraction] 38.7 % 35 - 47 % [facility] Work Phone: [phone] Hemoglobin (Bld) [Mass/Vol] 13.2 g/dL 11.7 - 16 g/dL [facility] Work Phone: [phone] Interpretation and review of laboratory results Abnormal [employer] Work Phone: [phone] Lymphocytes (Bld) [#/Vol] 1.4 10*3/uL 1 - 4.3 10*3/uL [facility] Work Phone: [phone] Lymphocytes/100 WBC (Bld) 41.4 % High 20 - 40 % [employer] [facility] Work Phone: [phone] MCH (RBC) [Entitic mass] 30.7 pg 26 - 34 pg [facility] Work Phone: [phone] MCHC (RBC) [Mass/Vol] 34.0 % 32 - 36 % [facility] Work Phone: [phone] MCV (RBC) [Entitic vol] 90.0 fL 79 - 98 fL [facility] Work Phone: [phone] Monocytes (Bld) [#/Vol] 0.2 10*3/uL 0 - 0.8 10*3/uL [facility] Work Phone: [phone] Monocytes/100 WBC (Bld) 6.5 % 2 - 10 % [facility] Work Phone: [phone] Platelet mean volume (Bld) [Entitic vol] 9.5 fL 7.4 - 10.4 fL [facility] Work Phone: [phone] Platelets (Bld) [#/Vol] 211 10*3/uL 140 - 440 10*3/uL [facility] Work Phone: [phone] RBC (Bld) [#/Vol] 4.30 10*6/uL 3.8 - 5.2 10*6/uL [facility] Work Phone: [phone] WBC (Bld) [#/Vol] 3.4 10*3/uL Low 3.6 - 10.7 10*3/uL [facility] Work Phone: [phone] Test Performed by [facility], [address] , [place], [place] [address] [facility] Work Phone: [phone] CBC Auto Differentialon 04-04 Absolute Baso # 0.0 10*3/uL 0 - 0.2 10*3/uL [place] Absolute Neut # 2.1 10*3/uL 1.8 - 7 10*3/uL [place] Basophils/100 WBC (Bld) 1.1 % 0 - 2 % [place] Eosinophils (Bld) [#/Vol] 0.1 10*3/uL 0 - 0.5 10*3/uL [place] Eosinophils/100 WBC (Bld) 1.9 % 1 - 6 % [place] Erythrocyte distribution width (RBC) [Ratio] 12.9 % 11.5 - 14.5 % [place] Granulocytes/100 WBC (Bld) 47.8 % 40 - 80 % [place] Hematocrit (Bld) [Volume fraction] 40.5 % 35 - 47 % [place] Hemoglobin (Bld) [Mass/Vol] 14.2 g/dL 11.7 - 16 g/dL [place] Interpretation and review of laboratory results Abnormal [place] Lymphocytes (Bld) [#/Vol] 1.9 10*3/uL 1 - 4.3 10*3/uL [place] Lymphocytes/100 WBC (Bld) 42.3 % High 20 - 40 % [place] MCH (RBC) [Entitic mass] 31.0 pg 26 - 34 pg [place] MCHC (RBC) [Mass/Vol] 35.2 % 32 - 36 % [place] MCV (RBC) [Entitic vol] 88.0 fL 79 - 98 fL [place] Monocytes (Bld) [#/Vol] 0.3 10*3/uL 0 - 0.8 10*3/uL [place] Monocytes/100 WBC (Bld) 6.9 % 2 - 10 % [place] Platelet mean volume (Bld) [Entitic vol] 8.6 fL 7.4 - 10.4 fL [place] Platelets (Bld) [#/Vol] 233 10*3/uL 140 - 440 10*3/uL [place] RBC (Bld) [#/Vol] 4.60 10*6/uL 3.8 - 5.2 10*6/uL [place] WBC (Bld) [#/Vol] 4.4 10*3/uL 3.6 - 10.7 10*3/uL [place] Test Performed by [facility], [address] [place] [address] Rd. , [address] CKon 05-01-2020 Total CK 54 U/L 30 - 170 U/L [place] Comprehensive Metabolic Pane tr 05-01-2020 Albumin [Mass/Vol] 4.8 g/dL 3.5 - 5 g/dL [place] ALP [Catalytic activity/Vol] 54 U/L 38 - 126 U/L [place] ALT [Catalytic activity/Vol] 14 U/L 0 - 34 U/L [place] Comment on above: The ALT test is perf ormed by an updated assay method. Please note that the reference intervals have been changed and are now sex specific. Anion gap [Moles/Vol] 6 mmol/L [place] AST [Catalytic activity/Vol] 27 U/L 15 - 46 U/L [place] Bilirubin Ql (U) 0.6 mg/dL 0.2 - 1.3 mg/dL [place] Calcium [Mass/Vol] 10.2 mg/dL 8.4 - 10. 4 mg/dL [place] Chloride [Moles/Vol] 106 mmol/L 98 - 10 7 mmol/L [place] CO2 [Moles/Vol] 28 mmol/L 22 - 30 mmol/L [place] Creatinine [Mass/Vol] 0.65 mg/dL 0.52 - 1.25 mg/dL [place] EGFR IF NonAfrican Portuguese >90.0 >60 mL/min [place] Comment on above: KDIGO guidelines pro vide the following GFR categories: Stage GFR(ml/min/1.73 m2) Terms G1 >=90 Normal or high G2 60-89 Mildly decreased* G3a 45-59 Mildly to moderately decreased G3b 30-44 Moderately to severely decreased G4 15-29 Severely decreased G5 <15 Kidney failure *Relative to young adult level. In the absence of evidence of kidney damage, neither GFR category G1 nor G2 fulfill the criteria for CKD. The CKD-EPI equation is validated in individuals 18 years of age and older. Currently the best equation for estimating glomerular filtration rate (GFR) from serum creatinine in children is the Bedside Durand equation. It is less accurate in patients with extremes of muscle mass, restriction of dietary protein, ingestion of creatine, extra-renal metabolism of creatinine, or treatment with medications that affect renal tubular creatinine secretion. GFR/1.73 sq M predicted among blacks MDRD (S/P/Bld) [Vol rate/Area] mL/min/{1.73_m2} >60 mL/min [place] Glucose [Mass/Vol] 109 mg/dL High 70 - 100 mg/dL [place] Interpretation and review of laboratory results Abnormal [place] Potassium [Moles/Vol] 4.7 mmol/L 3.5 - 5.1 mmol/L [place] Protein [Mass/Vol] 8.0 g/dL 6.3 - 8.2 g/dL [place] Sodium [Moles/Vol] 140 mmol/L 135 - 145 mmol/L [place] Urea nitrogen [Mass/Vol] 9 mg/dL 7 - 20 mg/dL [place] Otheron 05-01-2020 Test Performed by [facility], [address] , [address] Sedimentation Rateon 020 Sed Rate 1 mm/h 0 - 20 mm/h [facility] THU Test Performed by [facility], [address] , [address] THU XR THORACIC SPINE (MIN 4 VIE WS)on 05-01-2020 Qasim, Summa Incoming Radiology Results From [facility] - 05/01/2020 4:19 PM EST Patient Name: CAROLINE ALLRED Diagnostic Radiology ACCESSION EXAM DATE/TIME PROCEDURE ORDERING PROVIDER [id number] 05/01/2020 10:59 EST CR Spine Thoracic MD MAXIMINO, YOLIE Minimum 4 Views CPT code 82336 Reason For Exam (CR Spine Thoracic Minimum 4 Views) Pain in thoracic spine Report Indication: Thoracic back pain. AP, lateral, swimmer's and bilateral oblique views of the thoracic spine. Thoracic vertebral body height is maintained. No anterior or posterior listhesis. Degenerative endplate changes at the T5-T9 levels. Pedicles appear intact. There is minimal curvature, convex to the right at the midthoracic level. IMPRESSION: Mild degenerative endplate changes at the T5-T9 levels. Report Dictated on --- Final --- Dictating Physician: MD ZAFAR LAURA Signed Date and Time: 05/01/2020 4:18 pm Signed by: MD ZAFAR LAURA Transcribed Date and Time: 05/01/2020 4:19 [facility] THU Patient Name: CAROLINE ALLRED Diagnostic Radiology ACCESSION EXAM DATE/TIME PROCEDURE ORDERING PROVIDER [id number] 05/01/2020 10:59 EST CR Spine Thoracic MD MAXIMINO, YOLIE Minimum 4 Views CPT code 47594 Reason For Exam (CR Spine Thoracic Minimum 4 Views) Pain in thoracic spine Report Indication: Thoracic back pain. AP, lateral, swimmer's and bilateral oblique views of the thoracic spine. Thoracic vertebral body height is maintained. No anterior or posterior listhesis. Degenerative endplate changes at the T5-T9 levels. Pedicles appear intact. There is minimal curvature, convex to the right at the midthoracic level. IMPRESSION: Mild degenerative endplate changes at the T5-T9 levels. Report Dictated on --- Final --- Dictating Physician: MD ZAFAR LAURA Signed Date and Time: 05/01/2020 4:18 pm Signed by: MD ZAFAR LAURA Transcribed Date and Time: 05/01/2020 4:19 [place], [place] MRI LUMBAR SPINE WO CONTRAST on 02-07-2020 Patient Name: CAROLINE ALLRED ---MRI--- Exam Date/Time 02/07/2020 08:42:53 EDT Exam MRI Spine Lumbar w/o Contrast Ordering Physician MD HUANG BRADLEY PHILLIP Accession Number [id number] CPT4 Codes 03022 () Reason For Exam Radiculopathy, lumbar region Report MRI LUMBAR SPINE WITHOUT CONTRAST CLINICAL: Lumbar radiculopathy. COMPARISON: Plain film lumbar spine July 09, 2015 Sagittal and axial multisequence MR imaging of the lumbar spine was performed. FINDINGS: There are five lumbar type vertebral body levels. The lumbar spine vertebral body heights and alignment are maintained. There is no abnormal marrow edema to suggest acute lumbar osseous injury. The T1 marrow signal is slightly heterogeneous, however no focal areas of definite pathologic marrow replacement are identified. Intervertebral disc space heights and signal intensity are maintained throughout the lumbar spine. The conus terminates at the approximate lower endplate of L1. T12-L1 is without significant canal or foraminal stenosis. L1-L2 is without significant canal or foraminal stenosis. L2-L3 is without significant canal or foraminal stenosis. L3-L4 shows mild left stenosis or foraminal disc bulge minimally flattening the ventral aspect of the thecal sac. Overall mild narrowing of the canal. The foramina remain grossly patent, however on the left there is the small component of intraforaminal disc bulging not contributing to significant stenosis. L4-L5 shows mild disc bulging and left intraforaminal disc bulging. There is mild flattening of the ventral thecal sac and mild left lateral recess narrowing. Overall mild narrowing of the central canal. The foramina show gross patency, with mild intraforaminal disc bulging on the left not contributing to significant stenosis. L5-S1 is without significant canal or foraminal narrowing. IMPRESSION: Minimal lower lumbar spine disc bulging is above, without significant central canal or neuroforaminal stenosis identified. Report Dictated on Workstation: [employer] --- Final --- Dictating Physician: MD ESPINOZA BRIAN Signed Date and Time: 02/07/2020 8:54 am Signed by: MD ESPINOZA BRIAN Transcribed Date and Time: 02/07/2020 8:55 [place], [place] Qasim, Summa Incoming Radiology Results From [facility] - 02/07/2020 8:55 AM EDT Patient Name: CAROLINE ALLRED ---MRI--- Exam Date/Time 02/07/2020 08:42:53 EDT Exam MRI Spine Lumbar w/o Contrast Ordering Physician MD SAL, FERMIN VELAZQUEZ Accession Number [id number] CPT4 Codes 53706 () Reason For Exam Radiculopathy, lumbar region Report MRI LUMBAR SPINE WITHOUT CONTRAST CLINICAL: Lumbar radiculopathy. COMPARISON: Plain film lumbar spine July 09, 2015 Sagittal and axial multisequence MR imaging of the lumbar spine was performed. FINDINGS: There are five lumbar type vertebral body levels. The lumbar spine vertebral body heights and alignment are maintained. There is no abnormal marrow edema to suggest acute lumbar osseous injury. The T1 marrow signal is slightly heterogeneous, however no focal areas of definite pathologic marrow replacement are identified. Intervertebral disc space heights and signal intensity are maintained throughout the lumbar spine. The conus terminates at the approximate lower endplate of L1. T12-L1 is without significant canal or foraminal stenosis. L1-L2 is without significant canal or foraminal stenosis. L2-L3 is without significant canal or foraminal stenosis. L3-L4 shows mild left stenosis or foraminal disc bulge minimally flattening the ventral aspect of the thecal sac. Overall mild narrowing of the canal. The foramina remain grossly patent, however on the left there is the small component of intraforaminal disc bulging not contributing to significant stenosis. L4-L5 shows mild disc bulging and left intraforaminal disc bulging. There is mild flattening of the ventral thecal sac and mild left lateral recess narrowing. Overall mild narrowing of the central canal. The foramina show gross patency, with mild intraforaminal disc bulging on the left not contributing to significant stenosis. L5-S1 is without significant canal or foraminal narrowing. IMPRESSION: Minimal lower lumbar spine disc bulging is above, without significant central canal or neuroforaminal stenosis identified. Report Dictated on Workstation: [employer] [id number] --- Final --- Dictating Physician: MD ESPINOZA BRIAN Signed Date and Time: 02/07/2020 8:54 am Signed by: MD ESPINOZA BRIAN Transcribed Date and Time: 02/07/2020 8:55 [place] CBC Auto Differentialon 02-02 Absolute Baso # 0.0 10*3/uL 0 - 0.2 10*3/uL [place] Absolute Neut # 2.6 10*3/uL 1.8 - 7 10*3/uL [place] Basophils/100 WBC (Bld) 0.8 % 0 - 2 % [place] Eosinophils (Bld) [#/Vol] 0.1 10*3/uL 0 - 0.5 10*3/uL [place] Eosinophils/100 WBC (Bld) 2.3 % 1 - 6 % [place] Erythrocyte distribution width (RBC) [Ratio] 13.2 % 11.5 - 14.5 % [place] Granulocytes/100 WBC (Bld) 54.1 % 40 - 80 % [place] Hematocrit (Bld) [Volume fraction] 39.3 % 35 - 47 % [place] Hemoglobin (Bld) [Mass/Vol] 13.4 g/dL 11.7 - 16 g/dL [place] Lymphocytes (Bld) [#/Vol] 1.8 10*3/uL 1 - 4.3 10*3/uL [place] Lymphocytes/100 WBC (Bld) 36.1 % 20 - 40 % [place] MCH (RBC) [Entitic mass] 30.7 pg 26 - 34 pg [place] MCHC (RBC) [Mass/Vol] 34.0 % 32 - 36 % [place] MCV (RBC) [Entitic vol] 90.2 fL 79 - 98 fL [place] Monocytes (Bld) [#/Vol] 0.3 10*3/uL 0 - 0.8 10*3/uL [place] Monocytes/100 WBC (Bld) 6.7 % 2 - 10 % [place] Platelet mean volume (Bld) [Entitic vol] 9.6 fL 7.4 - 10.4 fL [place] Platelets (Bld) [#/Vol] 195 10*3/uL 140 - 440 10*3/uL [place] RBC (Bld) [#/Vol] 4.35 10*6/uL 3.8 - 5.2 10*6/uL [place] WBC (Bld) [#/Vol] 4.9 10*3/uL 3.6 - 10.7 10*3/uL [place] Test Performed by [facility], [address] [place] [address] ANES Tray 06-08-2017 ANES POST HNO ID: [id number] thor: Matheus Reddervice: AnesthesiologyAuthor Type: AnesthesiologistType: Anesthesia PostOpFiled: 06/08/2017 7:19 PMNote Text:POST ANESTHESIA EVALUATION NOTESERVICE DATE: 06/08/2017DOB: 1985Vitals: Temp: 36.5 ?C (97.7 ?F) 06/08/1817BP: 102/66 100/56 101/55 100/54 06/08/1817Pulse: (!) 54 (!) 54 60 (!) 56 06/08/1817Resp: 16 14 18 16 06/08/1817SpO2: 99% 98% 98% 97%Validated Vital Signs: YesNo apparent anesthetic complications. The patient is appropriatelyhydrated with stable respiratory and cardiovascular status. Patient hassafe and adequate airway control. The patient has appropriate pain reliefand no significant post operative nausea or vomiting. The patient hasachieved baseline mental status.Further assessment by Anesthesia Service: NoneOther Remarks:SIGNATURE: Matheus Do MD PATIENT NAME: Caroline AllredDATE: June 08, 2017 : 7:19 PM [facility] ANES PREOPon 06-08-2017 ANES PREOP HNO ID: [id number] thor: Matheus Reddervice: AnesthesiologyAuthor Type: AnesthesiologistType: Anesthesia PreOpFiled: 06/08/2017 5:06 PMNote Text:REGIONAL ANESTHESIOLOGY DAY OF SURGERY NOTEPATIENT NAME: Caroline AllredMRN: [id number]: 1985Procedure(s) (LRB):EXAM UNDER ANESTHESIA PELVIC / VAGINAL (N/A)PLASTIC REPAIR OF INTROITUS (N/A)Surgeon(s):Meg CampbellEstimated body mass index is 21.58 kg/(m2) as calculated from thefollowing: Height as of 05/29/17: 160 cm (5' 3). Weight as of 05/29/17: 55.2 kg (121 lb 12.8 oz).ASA Class: 1Adequate NPO status: YesAllergies:ALLERGIESNo Known AllergiesAirway Assessment: MP 1; Neck ROM: Full ROM without neurologic symptoms;Airway Evaluation: No significant abnormalitiesDentition: Teeth intactSymptoms of Sleep Apnea: DeniesMost recent lab results:Hemoglobin 12.9 06/04/2017Hematocrit 40.8 06/04/2017Potassium 4.3 06/04/2017Platelet Count 249 06/04/2017Creatinine 0.77 06/04/2017HCG Qualitative, Urine Negative 08/24/2015Previous Anesthesia: No history of adverse event Family history ofanesthetic problems: NoneAdditional Physical Exam:Lungs: Lungs clear to auscultation. Good diaphragmatic excursion.Cardiac: Normal S1 and S2; no rubs, no murmurs and no gallopsAdditional pertinent findings: N/AOther Medical Problems/ Important Considerations:Denies chest pain and SOB with exertion.Denies change in functional capacity.Denies GERD.Chronic Beta Carmen medication administered within 24 hours: N/AAnesthetic risks, benefits, alternatives, personnel and consent discussed:YesPatient agrees to proceed: YesBlood Products: Will accept Blood/Blood ProductsAnesthetic Plan: MAC with GA as back up; Standard ASA MonitorsPain Management Plan: Parenteral or OralEPIC Chart ReviewACTIVE PROBLEM LISTIrritable Bowel SyndromeHyperkinetic Heart DiseasePreoperative ExaminationVaginal Granulation TissueVaginal ScarPAST MEDICAL HISTORYDiagnosis Date- Cystic fibrosis screening 2015 Had SMA/fragile x and CF screening, all neg. screens- Hypotension- Infertility, female- Irritable bowel syndrome Irritable bowel- Migraine, unspecified, with intractable migraine, so stated, withoutmention of status migrainosus Migraine- Myopia- Orthostatic hypotensionPAST SURGICAL HISTORYProcedure Laterality Date- HERNIA REPAIR HX- PAST SURGICAL HISTORY OF growth left knee- PAST SURGICAL HISTORY OF left foot pin toe- PAST SURGICAL HISTORY OF right foot- REMOVAL GALLBLADDER Cholecystectomy- VAGINA BX, EXTEN REQUIR SUTURE 04/16/2017 revision of perineum/vagina from nonhealinge perineal ob lacFAMILY HISTORYProblem Relation Age of Onset- Cancer Maternal Grandfather- Stroke Paternal GrandfatherSocial History:Social HistorySubstance Use Topics- Smoking status: Never Smoker- Smokeless tobacco: Never Used- Alcohol use Yes Comment: socialNo current facility-administered medications on file prior to encounter.Current Outpatient Prescriptions on File Prior to Encounter:estradiol (ESTRACE) 0.01 % (0.1 mg/gram) vaginal cream pea-sized amount tovaginal area qhsdiltiazem gel 1 application by perineal route three times daily. 2%DILTIAZEM IN OINTMENT APPLY TO Perineal AREA TID UNTIL [id number] 100 mg capsule TAKE ONE CAPSULE BY MOUTH TWICE DAILY NEEDEDFOR CONSTIPATIONpolyethylene glycol 3350 (MIRALAX, GLYCOLAX) 17 gram/dose powder Take 17 gby mouth once daily. as needed to keep stools softVITAFOL GUMMIES 3.33 mg iron- 0.33 mg chew TAKE 3 GUMMIES BY MOUTH EVERYDAYCOMPOUNDED PRESCRIPTION 1 pair knee high support hose appropriate size(Patient not taking: Reported on 05/06/2017)Inpatient medications reviewed in [facility].I have interviewed and examined the patient. I have reviewed the medicalrecord and/or the pre-anesthesia evaluation, pertinent labs, and testresults.Significant changes in the patient's condition since the History andPhysical, not otherwise documented in primary service progress notes: NoThis contains updated information obtained within 48 hours ofSurgery/Procedure.SIGNATU RE: Matheus Do MD PATIENT NAME: Caroline SoteloTE: June 08, 2017 : 5:05 PM PAGER/CONTACT #: [facility] BRIEF OP NOTon 06-08-2017 BRIEF OP NOT HNO ID: [id number] thor: Fide Pizarro (Fel)Service: UrogynecologyAuthor Type: FellowType: Brief Op NoteFiled: 06/08/2017 6:01 PMNote Text:BRIEF OPERATIVE / PROCEDURE NOTELOG ID: [id number]/Procedure Date: 06/08/2017Incision/Procedure Start Time: 5:34 PMIncision Close/Procedure End Time:Surgeon(s)/Procedurali st(s) and Abstract Searcher(s):Surgeon(s) and Role: * Meg Campbell - Primary * Lolis ([place] - Resident - Assisting * Fide Pizarro (Fel) - FellowNo Additional StaffProcedure(s): plastics repair of vaginal introitus, vaginal advancementflap 4 x 2 cmAnesthesia: GeneralFindings: Perineal scar excised and vaginal granulation tissue removed.Vaginal sweep negative.Estimated Blood Loss: 5 mlSpecimens: granulation tissueComplications: NonePre-Op/Pre-Procedure Diagnosis: dyspareuniaPost-Op/Post-Pro cedure Diagnosis: dyspareuniaSIGNATURE: Fide Pizarro MD PATIENT NAME: Caroline SoteloTE: June 08, 2017 : 5:59 PM PAGER/CONTACT #: [phone] [facility] OPERATIVE NOon 06-08-2017 OPERATIVE NO HNO ID: [id number] thor: Beri M RidgewayService: UrogynecologyAuthor Type: PhysicianType: Operative ReportFiled: 06/09/2017 3:24 PMNote Text:OPERATIVE/PROCEDURE REPORTLOG ID: [id number]/Procedure Date: 06/08/2017Incision/Procedure Start Time: 5:34 PMIncision Close/Procedure End Time: 6:01 PMSurgeon(s)/Proceduralist( s) and Abstract Searcher(s):Surgeon(s) and Role: * Meg Campbell - Primary * Lolis (Nisha) Brittny - Resident - Assisting * Fide Olsen) Juarez - FellowNo Additional StaffProcedure(s):Exam under anesthesiaPlastics repair of vaginal introitusVaginal advancement flap 4 x 2 cmAnesthesia: GeneralIndications: The patient is a 31 year old 2, para 1011 withdyspareunia, vaginal scar, and vaginal granulation tissue following vacuumassisted vaginal delivery with third degree perineal laceration 02/21/17who had presented for consultation. On office exam, the patient had a wellhealed laceration extending from the base of the introitus to justanterior to the anal opening with a completely healed dimple noted at baseof laceration, vaginal guarding with no levator tenderness or spasm, atender band extending from 7 to 10 o'clock on the right vaginal sidewall,and a 3 mm area of granulation tissue in the midportion of the distalvagina, just proximal to the hymenal remnant. She desired surgicalmanagement. She was counseled about all the risks, benefits, alternatives,complications, indications, and personnel of the procedures performedwhich she accepted.Findings:On exam under anesthesia the perineal and vaginal scar was well healed.The previously noted granulation tissue was improved and only a small area1-2 mm area was noted in the midline just proximal to the hymen. There wasa skin bridge at the distal posterior vaginal introitus which wasconstricting the vaginal opening.Vaginal sweep at the end of the procedure revealed no foreign body in thevagina.Procedure Details: The patient was taken to the operating room where asurgical time-out and safety checklist were performed. The patient wasthen given prophylactic antibiotics and compression stockings were appliedbilaterally. She underwent general anesthesia without any difficulty. Shewas positioned in the dorsal lithotomy position using candy cane stirrups,making sure that her lower extremities were not overly extended or flexed.She was prepped and draped in the normal sterile fashion. A Foleycatheter was inserted and the bladder was drained of all urine. Exam underanesthesia was performed with the above findings noted.Next, Allis Clamps were placed on the posterior hymen and the distalposterior vagina and perineum were injected with 0.5% lidocaine with1:200,000 epinephrine. A scalpel was then used to incise the distalposterior skin bridge and underlying scar at the vaginal introitus in themidline until the constricting band was released. The vaginal epitheliumwas then grasped with Allis clamps and undermined using the Hills scissorsuntil a 4 x 2 cm vaginal advancement flap was created. The small amount ofgranulation tissue present at the distal edge of the flap was excised. Theband of scar tissue at the right distal vaginal side wall was then incisedin the opposite direction of the scar and the incision was connected tothe vaginal flap incision. The flap was then advanced, and a deep layer ofinterrupted sutures of 2-0 Polysorb were placed to take the flap offtension and for hemostasis. The incision line was then closed horizontallyusing interrupted and mattress sutures of 3-0 Polysorb. The vagina wasirrigated and suctioned dry. Hemostasis was excellent. Vaginal sweep wasnegative. Sponge, lap, and needle count were correct x2. Anesthesia wasreversed. The patient was extubated and transferred to the PACU in stablecondition.Pre-Op/Pre- Procedure Diagnosis: dyspareunia, vaginal scar, vaginalgranulation tissue, history of vacuum assisted vaginal delivery with thirddegree perineal lacerationPost-Op/Post-Proc edure Diagnosis: dyspareunia, vaginal scar, vaginalgranulation tissue, history of vacuum assisted vaginal delivery with thirddegree perineal lacerationEstimated Blood Loss: 5 mlSpecimens: granulation tissueImplantable Devices: NoneDrains: NoneComplications: NoneThe primary surgeon/proceduralist performed the procedure with assistance.SIGNATURE: Fide Pizarro MD PATIENT NAME: Caroline SoteloTE: June 08, 2017 : 6:02 PM PAGER/CONTACT #: [phone] [facility] SURGICAL PATHOLOGYon 018 SURGICAL PATHOLOGY [facility]: [id number] Physician: Meg Campbell MD FINAL DIAGNOSIS1. Granulation tissue, excision (A) - Squamous mucosa with non-specificreactive changes. BPR/dss 06/11/2017 Shaquille Carmona M.D., PhD(Electronic Signature) SPEC IMEN SUBMITTEDA: GRANULATION TISSUE CLINICAL DATAPREOPERATIVE EXAMINATION, DYSPAREUNIA GROSS DESCRIPTIONA. Received in formalin designated granulation tissue are multipleirregularly-shaped segments of aguilar rubbery tissue aggregating to 2 x 0.6 x0.4 cm. The specimen is totally submitted in one cassette.BF/lul/06/09/17Gross examination performed at [facility], [address] [place] [address] of Report: 06/11/2017Date of Procedure: 06/08/2017Date of Receipt: 06/09/2017Submitted by: Meg Campbell MDLocation: SORCDiagnostic interpretation performed at [facility], [address] [place] [id number]. Normal [facility] Comment on above: Performed By: #### P ATHS ####[place] [address] Type and Screenon 06-08-2017 ABO/RH(D) Positive [facility] Comment on above: Performed By: #### T SCR ####[address] [phone] Antibody Screen Negative Normal [facility] Comment on above: Performed By: #### T SCR ####[facility] [place], [place] [phone] NURSING PROGon 06-05-2017 NURSING PROG HNO ID: [id number] thor: Bre (Rn) NORRIS Lamaservice: (none)Author Type: Registered NurseType: Nursing Progress NoteFiled: 06/05/2017 11:56 AMNote Text:PATIENT PREOPERATIVE INSTRUCTIONSNo ref. provider found has scheduled you for your [facility] at [facility]: [phone] --[address] [place], [place].Please read below carefully for your personalized instructions.Blood Thinning Medications:- Stop NSAIDS (Ibuprofen, Advil, Aleve, Motrin, Celebrex, Mobic, etc.) nowdays before surgery, as directed by your surgeon.- Stop Aspirin now days before surgery, as directed by your surgeon.- Stop Vitamin E, ALL multi-vitamins, herbals and dietary supplements nowdays before surgery.- You may take Tylenol (Acetaminophen) or any of your pain medicationsthat do not contain aspirin or NSAIDS as needed.Dietary Restrictions:- No solid food after midnight.- You may have 12 ounces of clear liquids (water, clear juices such asapple juice or gatorade, carbonated beverages, clear tea, black coffee,jello) until 2 hours before scheduled arrival at facility.Pain Medications:Medications:Carlos roved medications to take the morning of surgery with a sip of water:NONEIf you start any new medications after today's visit, please contact [facility] above.Important Reminders:- Candy, mints, gum and tobacco products are NOT permitted the morning ofsurgery.- Hearing aids, dentures and glasses may be worn the morning of surgery.- NO jewelry, body piercings, makeup, nail thai, hairpins or contactsare to be worn the day of surgery.- CHG wipes provided with instructions.If you develop symptoms such as a fever, cold, or flu, or have otherchanges to your health within TWO DAYS of scheduled surgery or the morningof surgery, please contact the surgery center above.Personal Belongings:- Leave ALL valuables and money at home or with family members.For Outpatient Procedures: - YOU MUST HAVE A RESPONSIBLE CONDITIONER TUMBLER TAKE YOU HOME. A MARKETING INTELLIGENCE ANALYST OR CABDRIVER CANNOT BE MADE A RESPONSIBLE CONDITIONER TUMBLER.- We recommend that a responsible person stays with you overnight to takecare of you.- You cannot stay in a hotel alone after outpatient surgery. You will notbe permitted to have your surgery, if you do not have someone to take careof you. Arrival Time for Surgery:- The Surgery Center or hospital where you are having surgery will callthe afternoon before surgery (or Thursday for Thursday surgery) with ascheduled arrival time.- If you have not heard by 4 pm, please contact the surgery center above.Please be aware that emergency situations arise, which may delay or changeyour surgical time. If this happens, we will notify you as soon aspossible and regret any inconvenience.Bre Lamas RN [facility] Type and Screenon 06-04-2017 ABO/RH(D) Positive [facility] Comment on above: Performed By: #### T SCR ####[address] [phone] Antibody Screen Negative [facility] Comment on above: Performed By: #### T SCR ####[place] [phone] NURSING PROGon 06-02-2017 NURSING PROG HNO ID: [id number] thor: Deana (Rn) NORRIS Daviservice: NeurosurgeryAuthor Type: Registered NurseType: Nursing Progress NoteFiled: 06/02/2017 10:31 AMNote Text:PACC Nurse Progress NoteHistory AND Physical:PACC Visit Date: N/AOriginal HANDP Date: 05-29-17 M Lara CNPLabs Within Last 6 Months:N/AImaging Within Last 12 Months:N/ACardiac Testing:N/AChart Check:Mahesh Davis RNJune 02, 2017 10:31 AM [facility] HOSPon 05-20-2017 HOSP Patient:Pattie AllredRN: Height:5' 3(1.6 m)Weight:121 lb 12.8 oz (55.248 kg)Outpatient Medications as of 06/08/17:estradiol (ESTRACE) 0.01 % (0.1 mg/gram) vaginal creamdiltiazem [id number] 100 mg capsulepolyethylene glycol 3350 (MIRALAX, GLYCOLAX) 17 gram/dose powderVITAFOL GUMMIES 3.33 mg iron- 0.33 mg chewCOMPOUNDED PRESCRIPTIONAdmission/Clini c Administered Medications as of 06/08/17:0.9% NaCl 2-10 mLceFAZolin 2 g in dextrose (iso-osmotic) 100 mL (ANCEF, KEFZOL)Problem List:Irritable bowel syndrome [K58.9]Hyperkinetic heart disease [I51.89]Preoperative examination [Z01.818]Vaginal granulation tissue [N89.8]Vaginal scar [N89.8]Allergies:No Known AllergiesDate Verified:06/08/17Lab ValuesLab Value Units Date High LowPOTA* 4.3 mmol/L 06/04/2017 5.1 3.7HEMA* 40.8 % 06/04/2017 46.0 36.0Progress Notes (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[employer]):Lesia Lara CNP 05/29/2017 4:19 PM SignedHISTORY AND PHYSICAL EXAMINATIONSERVICE DATE: 05/29/2017SERVICE TIME: 1:20PRIMARY CARE PHYSICIAN: ORA Browne FOR VISIT:Caroline Allred is a 31 year old female who is being seen for pre-op testingThe patient has the following:ACTIVE PROBLEM LISTIrritable Bowel SyndromeHyperkinetic Heart DiseasePreoperative ExaminationVaginal Granulation TissueVaginal ScarSUBJECTIVECHIEF COMPLAINT: Vaginal scarHPI: Exam under anesthesia, revision of vaginal scar tissue, excision ofgranulation tissue, possible photographsPAST MEDICAL HISTORYDiagnosis Date- Cystic fibrosis screening 2016 Had SMA/fragile x and CF screening, all neg. screens- Hypotension- Infertility, female- Irritable bowel syndrome Irritable bowel- Migraine, unspecified, with intractable migraine, so stated, without mentionof status migrainosus Migraine- Myopia- Orthostatic hypotensionPAST SURGICAL HISTORYProcedure Laterality Date- HERNIA REPAIR HX- PAST SURGICAL HISTORY OF growth left knee- PAST SURGICAL HISTORY OF left foot pin toe- PAST SURGICAL HISTORY OF right foot- REMOVAL GALLBLADDER Cholecystectomy- VAGINA BX, EXTEN REQUIR SUTURE 04/16/2017 revision of perineum/vagina from nonhealinge perineal ob lacFAMILY HISTORYProblem Relation Age of Onset- Cancer Maternal Grandfather- Stroke Paternal GrandfatherSOCIAL HISTORY:Social HistorySubstance Use Topics- Smoking status: Never Smoker- Smokeless tobacco: Never Used- Alcohol use Yes Comment: socialMEDICATIONS:Prior to Admission medications as of 05/29/17 1312Medication Sig Last Dose Takingestradiol (ESTRACE) 0.01 % (0.1 mg/gram) vaginal cream pea-sized amount tovaginal area qhs Yesdiltiazem gel 1 application by perineal route three times daily. 2% DILTIAZEM INOINTMENT APPLY TO Perineal AREA TID UNTIL RESOLVES [id number] 100 mg capsule TAKE ONE CAPSULE BY MOUTH TWICE DAILY NEEDED FORCONSTIPATION Yespolyethylene glycol 3350 (MIRALAX, GLYCOLAX) 17 gram/dose powder Take 17 g bymouth once daily. as needed to keep stools soft YesVITAFOL GUMMIES 3.33 mg iron- 0.33 mg chew TAKE 3 GUMMIES BY MOUTH EVERY DAYYesdibucaine (NUPERCAINAL) 1 % ointment Apply 1 application to affected area threetimes daily.COMPOUNDED PRESCRIPTION 1 pair knee high support hose appropriate sizePatient not taking: Reported on 05/06/2017No medication comments found.CURRENT ALLERGIES: ALLERGIESNo Known AllergiesREVIEW OF SYSTEMS:PAIN ASSESSMENT: PainPain Score: 2/10Pain Location: VaginaGeneral: No weight loss, malaise or fevers.Neuro: NegativeRespiratory: No history of current cough or dyspnea, or pneumonia in the past 6weeks. No history of respiratory/pulmonary symptoms or problemsCardiovascular: Positive for: NegativeGI: No history of GI symptoms or problems. No history of esophageal varices,recent ascites, or ETOH greater than 2 drinks per day.: No history of UTI in past 6 weeks. No history of renal failure. Notcurrently on or requiring dialysis. 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 : DeniesEndocrine: No history of diabetes. Has not taken steroids within the past 30days. No history of endocrinological symptoms or problems.Hematology: No history of bleeding or clotting disorder. Pt is not takinganti-coagulation or platelet medications. No history of hematological symptomsor problems.Oncology: No history of CA metastasis, chemo within 30 days, or radiotherapywithin 90 days. Has not lost 10% of body wt in 6 months. No history ofoncological symptoms or problems.Psych: No history of psychiatric symptoms or problems.Musculoskeletal: Negative for joint pain or swelling, back pain or muscle pain.Skin: Negative for lesions, rash and itching.PHYSICAL EXAM:VITALS:BP 102/60 Ht 5' 3 (1.60m) Wt 121 lb 12.8 oz (55.2kg) LMP 05/15/2017 BMI21.58 kg/(m2).General: Alert and orientedSkin: Normal color, no rash, no lesions.HEENT: EOM, pupils equal, round and reactive.Cardiovascular: Normal S1 AND S2, no rubs, murmurs or gallops. No JVD.Lungs: Normal breath sounds, no wheezes or crackles.Abdomen: Soft, non-tender, no rigidity.Extremities: No deformity, no edema or tenderness, no joint swelling orclubbing.Neurological: Normal cognition and motor skills.Pulses: Carotid and radial pulses normal +2.Diagnostic tests reviewed for today's visit:PENDINGASSESSMENTTher e is no known pertinent medical condition which may affect addie-operativecourseClinica l Risk Factors for Possible Cardiac Complications:NonePatient is scheduled for a low-risk procedure.FUNCTIONAL STATUS: Run a short distance (8.00 METs)Functional Class (NYHA): IHealthQuest: Not obtainedPLANCONSULTS:Patien t does not require consults for optimization at this time.The Following Tests/Procedures Have Been Initiated:NoneInstructions Given to Patient:Patient given verbal and written preop instructions and voices comprehension andcompliance.SIGNATURE: Lesia Lara CNP PATIENT NAME: Caroline AllredDATE: May 29, 2017 : 1:20 PM PAGER/CONTACT #:Lesia Lara CNP 05/29/2017 4:19 PM SignedDATE OF SERVICE: 05/29/2017PROBLEM: Caroline Allred presents for pre-op teaching.PRE-OP DIAGNOSIS: Vaginal Granulation Tissue, Vaginal ScarSCHEDULED SURGERY AND DATE: Exam under anesthesia, revision of vaginal scartissue, excision of granulation tissue, possible photographs on 06/08/17PRIMARY SURGEON: ALISON Ahn PREOP ASSESSMENT:Fevers, chills, cough, or nasal congestion: NoVaginal itching, burning, discharge, or odor: NoPain with urination, frequency, urgency, cloudy or foul smelling urine: NoIf yes to any of the above then MD notified: Not ApplicablePATIENT LEARNING ASSESSMENT:Individual patient/family learning needs evaluated and addressed: YesCognitive ability: Alert and orientedMotivation to learn: InterestedFactors affecting learning: NonePhysical limitations affecting learning: NonePatient learns best by: Multiple MethodsMethod of instruction: Teach Back see belowIndividual instructionWritten instruction - handoutsVerbal instructionInstructions provided to: Patient via face to face discussionFamily support: Unable to assess - Family not presentPRE- AND POST-OPERATIVE TEACHINGPre-operative teaching and supplemental material provided and reviewed withpatient: Your Surgical Guide BookMapWritten pre-op and post-op instructionsAntibacterial soap: given to patient todayPre-operative instructions provided and reviewed with patient/family: No eating,drinking, or smoking after midnight prior to surgery unless otherwise directedNo alcohol the day before surgeryMedications as prescribed by anesthesia, internal medicine, surgeon, or NPStop NSAIDs, Aspirin (ASA), vitamins, herbal supplements, herbal teas, and dietpills 7-10 days prior to surgeryOK to take tylenol prn pain unless otherwise directed by physicianCall surgery coordinators if any other questions about surgerydate or pre-op appointmentsBowel prep instructions: NPO after midnightDay of surgery instructions provided and reviewed with patient/family: Arrivaltime (call surgical coordinators on the office day prior to surgery forverification)No jewelry, body piercing, makeup, contacts, lotions, nail thai on fingers, oranything in hair on arrival to surgeryWear low healed shoes and loose fitting clothingLeave all valuables at home or with a family memberDirections to [facility] and the buildingParking/parking validation on the day prior to surgeryAdmission/check in (desk P-20 or J1-1)Holding areaPlacement of IVSurgical positioningFamily waiting areaSurgical recovery roomPost-operative instructions provided and reviewed with patient/family: SEEPATIENT INSTRUCTION SECTION FOR DETAILS.BATHING - OK to shower after surgery unless otherwise directed by MD, no tubbaths.PAIN MEDICATION - IV pain medication after surgery, IV SAND TECHNOLOGIST if ordered by MD,discharged home with a prescription for PO pain medication, pain managementafter surgery, side effects of pain medication (including constipation,dizziness, drowsiness, and medication interactions).VAGINAL CARE - Pelvic rest x6 weeks unless otherwise directed by MD.DVT PROPHYLAXIS - Early ambulation, SCDs, injectable anticoagulants (heparin,lovenox, etc)RESPIRATORY - Incentive spirometer, coughing/deep breathing exercises,ambulation.RETURN TO WORK - As directed by physician, please send any [place] papers [facility] secretary.SYMPTOMS TO NOTIFY MD - Fever, chills, nausea, vomiting, increased or severepain, heavy vaginal bleeding, foul smelling vaginal drainage, pain or swellingin extremities.URGENT SYMPTOMS - Call 911 or go to ER if any shortness of breath, difficultybreathing, or chest pain.HOW TO CONTACT PHYSICIAN - Physician's office phone number given to patient, ifafter hours patient instructed to call sweatband decorating machine operator and ask for day habilitation supervisor pet training instructor oncresident.RAHUL program offered to patient: YesAdditional teaching as indicated by patient/family learning needs.PATIENT LEARNING EVALUATION AND FOLLOW UP PLAN:Patient and/or family express understanding of upcoming surgery, pre-operativepreparation, the operative process, and post-operative instructions.Follow up plan: Contact information given.Patient has a post-op appointment scheduled: YesReferral (recommentation): NoneEducator: Lesia Lara [facility] Manitow[facility] CountyProgress Notes (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MAIN):Meg Campbell MD 05/20/2017 5:03 PM SignedURO 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CONSULTNAME: Caroline AllredMRN: [id number] COMPLAINT:Caroline Allred is a 31 year old Unavailable Declined female who is s/pVacuum on 02/21/2017 who is here for a consultation requested by Dr. Jluis tiwari opinion regarding a vaginal tear that hasn't healed.Her course is as follows:02/21- VAVD c/b 3rd degree mjytffeyal76/25- Office visit for perineal pain, exam of laceration umpbcb41/27- Office visit- Infection of laceration, prescribed augmentin; Gbfqiouugxinahkett37/31- Office visit- Separation of vaginal incision noted on exam03/12- Office visit- Examined, open area 7 x 5mm noted with granulation tissue;suture removed.03/31- Called with concern that incision had opened and purulent drainagepresent; seen in office and no signs of infection; a 5 x 5mm openingappreciated, treated with silver bthakap54/8- Office visit- 4 x 4mm area of granulation tissue noted04/16- Ambulator surgery by Dr. Bazzi: resection of vaginal and vulvargranulation tissue from non-healed powrnzas16/19- Office visit- Addie-anal area was noted to not be healed; rx'ed jnhaynszwexemq97/21- Office visit- Had a small amount of vaginal bleed, deemed to beappropriate postoperatively on exam05/06- Office visit- Granulation tissue and scar noted to cause a ridge on theright vaginal sidewall on exam; at perianal junction, granulation tissue wasnoted- tender/friable; vaginal estrogen was prescribed.Patient thinks since her last visit with Dr. Bazzi that the perineal incisionhas completely healed and she no longer has tenderness/burning in that area.Continues to have a vaginal aching sensation that has not improved.HISTORY OF PRESENT ILLNESSObstetric History:Date: 02/21/17Most recent delivery: VacuumWeight of the baby: 8lbs 1ozLaceration or episiotomy: Third degreeHospital: [facility]How long did you push?: <2 hoursIs there anything else we should know about your delivery?: Vaginal bleedingfrom the laceration that required transfusion of 2u pRBC's; ?vs PPH from at[place]?How are you feeding your baby: Bottle feedingIf you are , are you having any problems? N/aIf yes, would you like a referral to a wig sales consultant? N/AHave you had pain since your delivery? YesIf yes, has the pain resolved? NoIf no, the pain is with: Constant vaginal achingAre you taking anything for pain? Occasional ibuprofenAre you soaking your bottom (sitz bath)? YesIf yes, how many times/day? 2Are you taking anything to soften your stools? Colace, miralax every other dayas neededHave your menstrual periods started? YesLMP: Patient's last menstrual period was 05/15/2017.If yes, are you doing/using anything to prevent ? Abstinencecurrently- hasn't resumed intercourseEdinburg Scale Score: Deferred, s/p 6 week visit- negativedepression screen then and denies currentlyObstetric History T1 L1 SAB1 TAB0 Ectopic0 Multiple0 Live Births1 Comment: G1 SAB, no DANDC#: 1, Date: 07/02/13, Sex: None, Weight: None, GA: 8w0d, Delivery: SPONTANEOUSABORTION, Apgar1: None, Apgar5: None, Living: None, Comments: None#: 2, Date: 02/21/17, Sex: Female, Weight: 3.657 kg (8 lb 1 oz), GA: 41w0d,Delivery: Vaginal, Vacuum (Extractor), Apgar1: None, Apgar5: None, Living:Living, Comments: SROM at home, pitocin induction, cytotec,hemorrhage with2 units PRBC's transfusion, 3rd degree vaginal laceration, EBL 500ccPrevious deliveries: N/AAny previous third or fourth degree lacerations/tears into anal sphincter?: NoAny previous history of episiotomy?: NoWeight of largest baby: 8lbs 1oz (from recent )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History:Last Pap: Date: 04/10/17; Normal ; Last Mammogram: She has never had a mammogramMenstrual History: Recent period normal in flow/duration; previously periodsirregular and on infertility meds x1.5 yearsUrinary Symptoms:Are you leaking urine? NoDid you leak urine during your ? NoUDI-6Do you experience, and if so, how much are you bothered by frequent urination:0- Not at allDo you experience, and if so, how much are you bothered by urine leakage relatedto a feeling of urgency? 0- Not at allDo you experience, and if so, how much are you bothered by urine leakage relatedto physical activity, coughing or sneezing? 0- Not at allDo you experience, and if so, how much are you bothered by small amounts ofurine leakage (drops)? 0- Not at allDo you experience, and if so, how much are you bothered by difficulty emptyingyour bladder? 0- Not at allDo you experience, and if so, how much are you bothered by pain or discomfort inthe lower abdominal or genital area? 2- ModeratelyUDI-6 Score: 2Defecatory Symptoms:Are you leaking stool? NoIf yes, what stool consistency? N/ADid you leak stool during your ? NoAre you leaking flatus (gas)? NoFecal Incontinence Severity Score:FISIGas: (0) NeverMucus: (0) NeverLiquid stool: (0) NeverSolid stool: (0) NeverDo you leak stool while trying to get to the toilet? (5) NoDo you leak stool when you have no sensation that you need to defecate? (5) NoDo you leak stool only after having a bowel movement? (5) NoDo you wear a pad because of stool leakage? (5) NoFISI Score: 20Sexual History:Sexual Activity: Patient is sexually active, with male partner(s). Uses None forbirth control.Are you sexually active?: No- AbstainingPain:Marlys Pain Questionnaire- Short FormOverall Pain Index (VAS): 20Persistent Pain Index (PPI): 2- DiscomfortingHealth History:PAST MEDICAL HISTORYDiagnosis Date- Cystic fibrosis screening 2016 Had SMA/fragile x and CF screening, all neg. screens- Hypotension- Infertility, female- Irritable bowel syndrome Irritable bowel- Migraine, unspecified, with intractable migraine, so stated, without mentionof status migrainosus Migraine- Myopia- Orthostatic hypotension PAST SURGICAL HISTORYProcedure Laterality Date- HERNIA REPAIR HX- PAST SURGICAL HISTORY OF growth left knee- PAST SURGICAL HISTORY OF left foot pin toe- PAST SURGICAL HISTORY OF right foot- REMOVAL GALLBLADDER Cholecystectomy- VAGINA BX, EXTEN REQUIR SUTURE 04/16/2017 revision of perineum/vagina from nonhealinge perineal ob lac FAMILY HISTORYProblem Relation Age of Onset- Cancer Maternal Grandfather- Stroke Paternal GrandfatherSocial History: Social History Marital status: Spouse name: Years of education: Number of children:Occupational 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 [employer]*Social History Main Topics Smoking status: Never Smoker Smokeless status: Never Used Alcohol use: Yes Comment: social Drug use: No Sexual activity: Yes Partners with: Male control/protection: NoneMartial Status: MarriedProfession: TeacherREVIEW OF SYSTEMSGeneral: No weight loss, malaise or feversSkin negativePsychiatric Increased stress level d/t laryngomalacia of baby daughter- havingsurgery this weekNeurologic No history of headaches, syncope, paralysis, seizures or tremorsEndocrine No history of thyroid disorder, diabetes, cold intolerance, heatintolerance, polydypsiaCardiovascular No history of chest pain, palpitation, orthopnea, cyanosis, pedaledemaHematologic/Lymph atic negativeRespiratory No cough, hemoptysis, asthma, recent chest infection, wheezingGastrointestinal No blood in stool, pain with BM, tarry stool, persistentdiarrhea or constipationGU: No history of dysuria, frequency or incontinenceMusculoskeletal : NegativeI have reviewed the above history of present illness, past medical history andreview of systems as completed by my Fellow.OBJECTIVEPhysical Exam:Constitutional: Vital and BMI BP 100/60 Ht 160 cm (5' 3) Wt 54.4 kg (120lb) LMP 05/15/2017 BMI 21.26 kg/m2 BMI 21.26 kg/(m2)General Appearance: Well appearing, alert, in no acute distress, well-hydrated,well nourished.Skin: Skin color, texture, turgor normal, no suspicious rashes or lesionsNeck: SuppleLungs: Normal inspiratory effortBreasts: DeferredAbdomen: Normal abdominal exam and Abdomen soft, non-tender. No masses,organomegalyPelvic: Ext. Genitalia: Well healed laceration extending from the base of theintroitus to just anterior to the anal opening. Dimple noted at base oflaceration, which is also noted to be completely healed Vaginal: Vaginal guarding noted. No levator tenderness or spasm appreciatedon exam. Band extending from ~7 to 10 o'clock on the right vaginal sidewall.This is tender to palpation and the area immediately distal to this area istender to palpation. ~3mm area of granulation tissue in the midportion of thedistal vagina, just proximal to the hymenal remnantSaddle Sensory Exam (S-4): normalIMPRESSION:Caroline Allred is a 31 year old female who is now s/p Vacuum complicated by 3rddegree laceration. In the period, she has experienced an infection ofher OASI treated with antibiotics and had poor healing of laceration s/p sutureremoval, treatment of granulation tissue, and operative revision who nowpresents with vaginal granulation tissue and a vaginal scar tissue band.Perineal component of laceration noted to be well healed.PLAN:- Discussed management options with the patient including expectant managementversus surgical revision. Discussed possibility of recurrent scar tissue andgranulation tissue, as well as that the revision may not resolve the vaginalpain she is experiencing. Discussed possibility of need for postoperativevaginal dilator use and pelvic floor physical therapy. Patient desires toproceed with surgical revision. Surgical risks, benefits, and indicationsreviewed with the patient who agrees to proceed. All questions answered.Informed consent was obtained. Patient prefers surgery at as soon asavailable.- Continue vaginal estrogen QHS until surgeryHalley Valentine, [facility] ST[facility]FF PHYSICIAN NOTE OF PERSONAL INVOLVEMENT IN CAREI have reviewed the progress note obtained and documented by the fellow and Ipersonally participated in the all components. I have discussed the case andmanagement of the patient's care. I agree with impression and plan as notedabove. I personally consented the patient for surgery.My final recommendations will be communicated back to the requesting physicianby way of shared Medical record or letter via US mail.Meg Campbell, [facility]: Dr. BazziPrevious Version Normal [facility] Vital Signs Date Time Vital Sign Value Performing Clinician Facility 10-07-2024 09:31-0400 Body weight 52.[address] Julio Barfield MD Work Phone: [facility] 10-07-2024 09:31-0400 Diastolic blood pressure 80 mm[Hg] Dr. Julio Barfield MD Work Phone: [facility] 10-07-2024 09:31-0400 Heart rate 64 /min Dr. Julio Barfield MD Work Phone: [facility] 10-07-2024 09:31-0400 Respiratory rate 18 /min Dr. Julio Barfield MD Work Phone: [facility] 10-07-2024 09:31-0400 SaO2% (BldA) [Mass fraction] 98 % Dr. Julio Barfield MD Work Phone: [facility] 10-07-2024 09:31-0400 Systolic blood pressure 118 mm[Hg] Dr. Julio Barfield MD Work Phone: [facility] 07-07-2024 15:01-0500 Body height 162.[address] Yolie Stanton MD Work Phone: [facility] 07-07-2024 15:01-0500 Body mass index (BMI) [Ratio] 19.2 kg/m2 Dr. Yolie Stanton MD Work Phone: [facility] 07-07-2024 15:01-0500 Body temperature 97.6 [degF] Dr. Yolie Stanton MD Work Phone: [facility] 07-07-2024 15:01-0500 Body weight 50.[address] Yolie Stanton MD Work Phone: [facility] 07-07-2024 15:01-0500 Diastolic blood pressure 91 mm[Hg] Dr. Yolie Stanton MD Work Phone: [facility] 07-07-2024 15:01-0500 Heart rate 71 /min Dr. Yolie Stanton MD Work Phone: [facility] 07-07-2024 15:01-0500 Respiratory rate 17 /min Dr. Yolie Stanton MD Work Phone: [facility] 07-07-2024 15:01-0500 SaO2% (BldA) [Mass fraction] 99 % Dr. Yolie Stanton MD Work Phone: [facility] 07-07-2024 15:01-0500 Systolic blood pressure 134 mm[Hg] Dr. Yolie Stanton MD Work Phone: [facility] 07-01-2024 07:18-0500 Body mass index (BMI) [Ratio] 19.22 kg/m2 Krislyn Aberegg PA Work Phone: [facility] 07-01-2024 07:18-0500 Body weight 50 kg Krislyn Aberegg PA Work Phone: [facility] 07-01-2024 07:18-0500 Diastolic blood pressure 76 mm[Hg] Krislyn Aberegg PA Work Phone: [facility] 07-01-2024 07:18-0500 Heart rate 83 /min Krislyn Aberegg PA Work Phone: [facility] 07-01-2024 07:18-0500 Respiratory rate 16 /min Krislyn Aberegg PA Work Phone: [facility] 07-01-2024 07:18-0500 SaO2% (BldA) [Mass fraction] 98 % Krislyn Aberegg PA Work Phone: [facility] 07-01-2024 07:18-0500 Systolic blood pressure 110 mm[Hg] Krislyn Aberegg PA Work Phone: [facility] 06-30-2024 14:04-0500 Body height 161.3 cm Coty Haney APRN.WELL LO[employer]ER Work Phone: [facility] 06-30-2024 14:04-0500 Body mass index (BMI) [Ratio] 19.35 kg/m2 Coty Haney APRN.[employer]ER Work Phone: [facility] 06-30-2024 14:04-0500 Body weight 50.35 kg Coty Haney APRN.[employer] LO[employer]ER Work Phone: [facility] 06-30-2024 14:04-0500 Diastolic blood pressure 75 mm[Hg] Coty Haney APRN.WELL LOGGER Work Phone: [facility] 06-30-2024 14:04-0500 Systolic blood pressure 115 mm[Hg] Coty Haney APRN.WELL LOGGER Work Phone: [facility] 05-09-2024 13:36-0500 Body mass index (BMI) [Ratio] 19.53 kg/m2 Alpesh Longoria MD Work Phone: [facility] 05-09-2024 13:36-0500 Body weight 50.8 kg Alpesh Longoria MD Work Phone: [facility] 05-09-2024 13:36-0500 Diastolic blood pressure 72 mm[Hg] Alpesh Longoria MD Work Phone: [facility] 05-09-2024 13:36-0500 Systolic blood pressure 110 mm[Hg] Alpesh Longoria MD Work Phone: [facility] 12-16-2023 11:06-0400 Body mass index (BMI) [Ratio] 19.95 kg/m2 Ino Michelle DO Work Phone: [facility] [employer] 12-16-2023 11:06-0400 Body temperature 98.4 [degF] Ino Michelle DO Work Phone: [employer] 12-16-2023 11:06-0400 Body weight 51.89 kg Ino Michelle DO Work Phone: [employer] 12-16-2023 11:06-0400 Diastolic blood pressure 66 mm[Hg] Ino Michelle DO Work Phone: [employer] 12-16-2023 11:06-0400 Heart rate 62 /min Ino Michelle DO Work Phone: [employer] 12-16-2023 11:06-0400 Respiratory rate 18 /min Ino Michelle DO Work Phone: [employer] 12-16-2023 11:06-0400 SaO2% (BldA) [Mass fraction] 100 % Ino Michelle DO Work Phone: [employer] 12-16-2023 11:06-0400 Systolic blood pressure 101 mm[Hg] Ino Michelle DO Work Phone: [employer] 12-10-2022 10:48-0400 Body mass index (BMI) [Ratio] 20.33 kg/m2 Ino Michelle DO Work Phone: [employer] 12-10-2022 10:48-0400 Body temperature 98.6 [degF] Ino Michelle DO Work Phone: [employer] 12-10-2022 10:48-0400 Body weight 52.89 kg Ino Michelle DO Work Phone: [employer] 12-10-2022 10:48-0400 Diastolic blood pressure 77 mm[Hg] Ino Michelle DO Work Phone: [employer] 12-10-2022 10:48-0400 Heart rate 64 /min Ino Randallebel DO Work Phone: [employer] 12-10-2022 10:48-0400 SaO2% (BldA) [Mass fraction] 100 % Ino Randallebel DO Work Phone: [employer] 12-10-2022 10:48-0400 Systolic blood pressure 116 mm[Hg] Ino Michelle DO Work Phone: [employer] 05-22-2022 13:42-0500 Diastolic blood pressure 66 mm[Hg] Jaycee Vicente DO Work Phone: [employer] 05-22-2022 13:42-0500 Respiratory rate 18 /min Jaycee Vicente DO Work Phone: [employer] 05-22-2022 13:42-0500 SaO2% (BldA) [Mass fraction] 100 % [employer] DO Work Phone: [employer] 05-22-2022 13:42-0500 Systolic blood pressure 118 mm[Hg] Jaycee Vicente DO Work Phone: [employer] 05-22-2022 13:35-0500 Heart rate 82 /min Jaycee Vicente DO Work Phone: [employer] 05-22-2022 13:09-0500 Body temperature 98.01 [degF] [employer] Work Phone: [facility] [employer] 05-22-2022 08:58-0500 Body height 161.3 cm [employer] Work Phone: [facility] [employer] 05-22-2022 08:58-0500 Body mass index (BMI) [Ratio] 19.53 kg/m2 [employer] Work Phone: [facility] [employer] 05-22-2022 08:58-0500 Body weight 50.8 kg Jyacee [employer] Work Phone: [facility] [employer] 04-24-2022 08:06-0500 Body height 160 cm Coty Haney APRN.WELL [employer]ER Work Phone: [facility] 04-24-2022 08:06-0500 Body weight 50.8 kg Coty Haney APRN.[employer] Work Phone: [facility] 04-24-2022 08:06-0500 Diastolic blood pressure 60 mm[Hg] Coty Haney APRN.WELL [employer] Work Phone: [facility] 04-24-2022 08:06-0500 Systolic blood pressure 100 mm[Hg] Coty Haney APRN.WELL [employer]ER Work Phone: [facility] 02-18-2022 12:34-0400 Diastolic blood pressure 71 mm[Hg] [employer] Work Phone: [facility] 02-18-2022 12:34-0400 Heart rate 74 /min [employer] Work Phone: [facility] 02-18-2022 12:34-0400 Respiratory rate 15 /min [employer] Work Phone: [facility] 02-18-2022 12:34-0400 SaO2% (BldA) [Mass fraction] 100 % [employer] Work Phone: [employer] 02-18-2022 12:34-0400 Systolic blood pressure 121 mm[Hg] Jaycee Zhang DO Work Phone: [facility] 11-12-2021 07:37-0400 Body temperature 97.81 [degF] Dawson Kulow PA-C Work Phone: [facility] 11-12-2021 07:37-0400 Diastolic blood pressure 77 mm[Hg] Dawson Kulow PA-C Work Phone: [facility] 11-12-2021 07:37-0400 Heart rate 66 /min Dawson Kulow PA-C Work Phone: [facility] 11-12-2021 07:37-0400 Respiratory rate 18 /min Dawson Kulow PA-C Work Phone: [facility] 11-12-2021 07:37-0400 Systolic blood pressure 119 mm[Hg] Dawson Kulow PA-C Work Phone: [facility] Encounters Encounter Date Encounter Type Care Provider Facility Start: 10-13-2024 ambulatory Ángel Rosario Facility:[facility] Start: 10-07-2024 End: 10-07-[address] Ángel Rosario MD -[facility] Work Phone: Start: 10-07-2024 End: 10-07-[address] Julio Barfield MD Work Phone: [facility] Work Phone: Start: 09-20-2024 End: 09-20-[address] Alpesh Rivera MD -[facility] Work Phone: Start: 09-20-2024 End: 09-20-[address] Yolie Stanton MD Work Phone: [facility] Work Phone: Start: 09-12-2024 End: 09-12-[address] Alpesh Rivera MD -[facility] Work Phone: Start: 09-12-2024 End: 09-12-2024 ambulatory Julio Barfield [facility] Start: 08-12-2024 End: 08-12-2024 ambulatory Julio Barfield Facility:[facility] Start: 08-12-2024 End: 08-12-[address] Alpesh Rivera MD -[facility] Work Phone: Start: 07-07-2024 End: 07-07-[address] Alpesh Rivera MD -[facility] Work Phone: Start: 07-07-2024 End: 07-07-2024 ambulatory Rj Cornelius [facility] Start: 07-01-2024 End: 07-01-2024 ambulatory YOLIE STANTON Facility:[facility] Start: 07-01-2024 End: 07-01-2024 Patient encounter procedure Collin GILMAN Work Phone: [facility] Comment on above: Pilar cyst of scalp (Primary Dx) Start: 06-30-2024 End: 06-30-2024 ambulatory YOLIE STANTON Facility:[facility] Start: 06-30-2024 End: 06-30-2024 Patient encounter procedure Coty Haney APRN.WELL LOGGER Work Phone: OB/Gynecology Comment on above: Encounter for gyneco logical examination (general) (routine) without abnormal findings (Primary Dx); Dysmenorrhea; Surveillance for control, oral contraceptives Start: 06-30-2024 End: 06-30-2024 Patient encounter status Coty Haney APRN.WELL LO[employer]ER Work Phone: [facility] Start: 05-24-2024 End: 05-24-2024 Telephone encounter Sujatha Nunn APRN.CNM Work Phone: OB/Gynecology Comment on above: Orders Start: 05-24-2024 End: 05-24-[address] Yolie Stanton MD Work Phone: -[facility] Work Phone: Start: 05-24-2024 End: 05-24-2024 ambulatory Yolie Stanton Facility:[facility] Start: 05-17-2024 End: 05-17-2024 Telephone encounter Alpesh Longoria MD Work Phone: OB/Gynecology Comment on above: Orders Start: 05-09-2024 End: 05-09-2024 ambulatory ALPESH LONGORIA Facility:[facility] Start: 05-09-2024 End: 05-09-2024 Patient encounter procedure Alpesh Longoria MD Work Phone: OB/Gynecology Comment on above: Mastodynia of left b reast (Primary Dx) Start: 04-28-2024 End: 04-29-2024 Refill Pelon Gonzalez MD Work Phone: OB/Gynecology Comment on above: Refill Request Start: 02-15-2024 End: 02-15-2024 Subsequent hospital visit by physician Jaycee Zhang DO Work Phone: [facility] Comment on above: 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 Start: 02-15-2024 End: 02-15-2024 ambulatory [facility] Start: 01-14-2024 End: 04-14-2024 Transcribe Orders Jaycee Zhang DO Work Phone: [facility] Scheduling Comment on above: 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) Start: 12-16-2023 End: 12-16-2023 [facility] Start: 12-16-2023 End: 12-16-2023 Office outpatient visit 15 minutes Ino Martinez DO Work Phone: [facility] Comment on above: Other neutropenia (C MS/HCC) (HCC) (Primary Dx) Start: 11-10-2023 ambulatory Valerio aguirre Work Phone: Podiatry Comment on above: Insurance Coverage Start: 06-11-2023 End: 06-11-2023 Patient encounter procedure Valerio Calhoun Work Phone: Podiatry Comment on above: Nail dystrophy (Prim jeannine Dx) Start: 04-07-2023 End: 04-07-2023 Subsequent hospital visit by physician Chaitanya [facility] [employer] Work Phone: Radiology Comment on above: 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) Start: 12-10-2022 End: 12-10-2022 Office outpatient visit 15 minutes Ino Jj Martinez DO Work Phone: [facility] Oncology Comment on above: Other neutropenia (C MS/HCC) (HCC) (Primary Dx) Start: 07-04-2022 End: 07-04-2022 Transcribe Orders Ino Jj RandallMichelle DO Work Phone: [facility] Laboratory Comment on above: Other neutropenia (C MS/HCC) (HCC) (Primary Dx) Hypothyroidism, unsp ecified (Primary Dx) Start: 06-03-2022 Telephone encounter Ino pop DO Work Phone: [facility] Oncology [place] Start: 05-22-2022 End: 05-22-2022 Anesthesia consultation Yobani Franco MD Work Phone: [facility] OR Start: 05-22-2022 End: 05-22-2022 Subsequent hospital visit by physician Jaycee Zhang DO Work Phone: [facility] Comment on above: 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 Start: 04-24-2022 End: 04-24-2022 Patient encounter procedure Coty Haney APRN.WELL LOGGER Work Phone: OB/Gynecology Comment on above: Encounter for gyneco logical examination (general) (routine) without abnormal findings (Primary Dx); Screening for cervical cancer; Encounter for screening for human papillomavirus (HPV); Dysmenorrhea; Surveillance for control, oral contraceptives Start: 04-24-2022 End: 04-24-2022 Patient encounter status Coty Haney APRN.CNP Work Phone: OB/Gynecology Start: 02-18-2022 ambulatory UNKNOWN PROVIDER [facility] Start: 02-18-2022 End: 02-18-2022 Subsequent hospital visit by physician Jaycee Nailsighjorge ZARATE Work Phone: [facility] Ultrasound Comment on above: Arrived Start: 02-04-2022 ambulatory UNKNOWN PROVIDER [facility] Start: 02-04-2022 End: 02-04-2022 Subsequent hospital visit by physician Jaycee Zhang DO Work Phone: [facility] Comment on above: Arrived Start: 12-05-2021 End: 12-05-2021 Subsequent hospital visit by physician Ino Martinez DO Work Phone: [facility] Start: 11-14-2021 Telephone encounter Dawson Qlika PA-Qonf Work Phone: [employer] [facility] Comment on above: Return Call Request Start: 11-12-2021 End: 11-12-2021 Patient encounter procedure FND PA-C Work Phone: [employer] [facility] Comment on above: UTI symptoms (Primar y Dx) Start: 11-27-2020 End: 11-27-2020 Subsequent hospital visit by physician Tiffany Whalen CNP Work Phone: [facility] Comment on above: Thyroid nodule Start: 07-03-2020 End: 07-03-2020 Subsequent hospital visit by physician Moira Love Work Phone: [facility] Start: 06-19-2020 End: 06-19-2020 Subsequent hospital visit by physician Ino Martinez Work Phone: [facility] Start: 06-15-2020 End: 06-15-2020 Subsequent hospital visit by physician Ino Martinez Work Phone: [facility] Laboratory Comment on above: Other neutropenia (H CC) Start: 05-01-2020 End: 05-01-2020 Subsequent hospital visit by physician Yolie Stanton Work Phone: [facility] Comment on above: Acute bilateral thor acic back pain; Muscle pain Start: 02-07-2020 End: 02-07-2020 Subsequent hospital visit by physician Fermin Huang Work Phone: [facility] Comment on above: Lumbar radiculopathy Start: 12-13-2019 End: 12-13-2019 Subsequent hospital visit by physician Ino Martinez Work Phone: [facility] Start: 05-16-2019 End: 05-16-2019 Subsequent hospital visit by physician Lester Mosley DO Work Phone: [facility] Start: 03-01-2019 End: 03-01-2019 Subsequent hospital visit by physician Lester Mosley Work Phone: [facility] Start: 02-22-2019 End: 02-22-2019 Subsequent hospital visit by physician Lester Mosley Work Phone: [facility] Laboratory Comment on above: Other neutropenia (H CC) Start: 08-09-2018 Patient encounter procedure [facility] Start: 07-07-2018 [facility] Start: 07-05-2018 Patient encounter procedure LESTER [facility] Start: 06-08-2017 End: 06-09-2017 Ambulatory [facility] Start: 05-20-2017 End: 06-08-2017 Preprocedural examination done Valerio Calhoun Work Phone: [facility] Procedures Date Procedure Procedure Detail Performing Clinician Start: 05-24-[address] Yolie Stanton MD Work Phone: Start: 05-24-2024 Bilateral mammography Angelia Stanton MD Work Phone: Start: 05-24-[address] Yolie Stanton MD Work Phone: Start: 02-15-2024 Us soft tissue head & neck real time [facility] Work Phone: Start: 07-04-2022 Blood count complete auto&auto difrntl wbc Ino E Michelle DO Work Phone: Start: 07-04-2022 Thyrotropin [Units/v olume] in Serum or Plasma [facility] Drawstation Start: 05-22-2022 CA AN ELECTIVE ENDOT LISS AIRWAY Tomi Alesia [employer] Work Phone: Start: 05-22-2022 Urine test visual color cmprsn rosalio Franco MD Work Phone: Start: 04-24-2022 Microscopic observat ion [Identifier] in Cervix by Cyto stain [facility] Work Phone: Start: 02-18-2022 Fine needle aspirati on bx w/us gdn 1st lesion Jaycee Krishna [facility] Work Phone: Start: 11-12-2021 Urnls dip stick/tabl et rgnt auto w/o microscopy [facility] Provider Start: 11-27-2020 Us soft tissue head & neck real time imge docm Tiffany Fowler [employer] - [employer] Work Phone: Start: 07-03-2020 Blood count complete auto&auto difrntl wbc Moira L Elginlankaterin Work Phone: Start: 07-03-2020 Comprehensive metabo lic panel Moira Rodolfo Love Work Phone: Start: 06-15-2020 Blood count complete auto&auto difrntl wbc Ino E Michelle Work Phone: Start: 05-01-2020 Blood count complete auto&auto difrntl wbc Yolie Stanton Work Phone: Start: 05-01-2020 Comprehensive metabo lic panel Yolie Stanton Work Phone: Start: 05-01-2020 Creatine kinase total D johnson Stanton Work Phone: Start: 05-01-2020 Sedimentation rate r bc automated Yolie Stanton Work Phone: Start: 05-01-2020 Radex spine thoracic minimum 4 views Yolie Stanton Work Phone: Start: 02-07-2020 Mri spinal canal lum bar w/o contrast material Fermin Sal Work Phone: Start: 02-22-2019 Blood count complete auto&auto difrntl wbc Lester B Pleat Work Phone: Plan of Treatment Date Care Activity Detail Author Start: 2061 RSV Immunization for Adults (1 - 1-dose 75+ series) RSV Immunization for Adults (1 - 1-dose 75+ series) [facility] Start: 2046 RSV Immunization age d 60 or older (1 - 1-dose 60+ series) RSV Immunization aged 60 or older (1 - 1-dose 60+ series) [facility] Start: 04-24-2027 HPV Testing HPV Testing [facility] Start: 04-24-2027 Pap Testing Pap Testing [facility] Start: 04-24-2027 Screening for malign ant neoplasm of cervix [facility] Start: 12-11-2026 DTaP/Tdap/Td vaccine (2 - Td or Tdap) DTaP/Tdap/Td vaccine (2 - Td or Tdap) [facility] Start: 12-11-2026 DTaP/Tdap/Td vaccine (2 - Td) DTaP/Tdap/Td vaccine (2 - Td) [facility] [place] Start: 12-11-2026 DTaP/Tdap/Td Vaccine s (2 - Td or Tdap) DTaP/Tdap/Td Vaccines (2 - Td or Tdap) [facility] Start: 12-11-2026 Urine microalbumin profile [facility] Start: 07-04-2025 End: 07-04-2025 Patient encounter procedure 07/04/2025 2:30 PM EST Office Visit OB/Gynecology [address] [place] [address] Coty Haney APRN.WELL [employer]GGER [address] [place], [place] [id number] Annual OB/Gynecology Comment on above: Annual Start: 04-24-2025 Screening for malign ant neoplasm of cervix [facility] Start: 02-14-2025 Thyroid Cancer Ultrasound Thyroid Cancer Ultrasound [facility] Start: 02-14-2025 Thyroid Nodule Ultrasound Thyroid Nodule Ultrasound [facility] Start: 11-29-2024 End: 11-29-2024 Patient encounter procedure [facility] Start: 09-12-[address] [facility] Work Phone: Start: 06-30-2024 End: 06-30-2024 Patient encounter procedure 06/30/2024 2:00 PM EST Office Visit OB/Gynecology [address] [place] [address] Coty Haney, [employer] [address] [place] [address] annual OB/Gynecology Comment on above: annual Start: 05-24-2024 End: 05-24-2024 Patient encounter procedure Mammogram Comment on above: Mastodynia of left b reast [N64.4] Start: 05-09-2024 End: 05-09-2024 Patient encounter procedure 05/09/2024 1:50 PM EST Office Visit OB/Gynecology [address] [place] [address] Alpesh Longoria MD [address] [place] [address] Breast pain OB/Gynecology Comment on above: Breast pain Start: 01-29-2024 Thyroid Cancer Ultrasound Thyroid Cancer Ultrasound [facility] Start: 01-03-2024 COVID-19 Vaccine () COVID-19 Vaccine () [facility] Start: 01-03-2024 COVID-19 Vaccine ( season) COVID-19 Vaccine ( season) [facility] Start: 01-03-2024 Influenza vaccination Influenza Vacc ine (#1) [facility] Start: 12-16-2023 End: 12-16-2023 Patient encounter procedure 12/16/2023 11:00 AM EDT Office Visit [facility] [address] [place] [address] [place] [id number] Ino Martinez, DO [address] [place] [address] [place], [place] [id number] [facility] Start: 12-11-2023 End: 12-11-2023 CBC W Auto Differential panel - Blood CBC auto differential Lab Routine Other neutropenia (CMS/HCC) (HCC) Expected: 12/11/2023 (Approximate), Expires: 12/11/2023 [facility] Work Phone: Comment on above: Expected: 12/11/2023 (Approximate), Expires: 12/11/2023 Start: 07-05-2023 Thyroid stimulating hormone measurement TSH Level [facility] Start: 05-04-2023 Behavioral Health Screening Behavioral Health Screening [facility] Start: 05-04-2023 Depression Assessment Depression Ass essment [facility] Start: 01-02-2023 Covid-19 Vaccine ( season) Covid-19 Vaccine ( season) [facility] Start: 01-02-2023 Influenza vaccination Influenza Vacc ine (#1) [facility] Start: 12-10-2022 End: 12-10-2022 Patient encounter procedure 12/10/2022 Office Visit Hematology and Oncology Ino Martinez DO [address] [place] [address] [place], [place] [id number] [facility] Start: 12-04-2022 End: 12-04-2022 Patient encounter procedure 12/04/2022 Office Visit Hematology and Oncology Ino Martinez DO [address] [place] [address] [place] [address] [facility] On[facility] [place] Start: 05-22-2022 End: 05-22-2022 Total thyroid lobectomy uni w/wo isthmusectomy TOTAL THYROID LOBECTOMY UNILATERAL Neoplasm of uncertain behavior of thyroid gland 05/22/2022 10:50 AM EST [facility] Operating Room Start: 05-04-2022 Depression Assessment Depression Ass [facility] Start: 04-23-2022 COVID-19 Vaccine (5 - Pfizer risk series) COVID-19 Vaccine (5 - Pfizer risk series) [facility] Start: 04-10-2022 HPV TESTING HPV TESTING [facility] Start: 04-10-2022 PAP TESTING PAP TESTING [facility] Start: 01-02-2022 Influenza vaccination C [facility] Start: 12-04-2021 Depression Screen Depression Screen [facility] Start: 12-02-2021 Influenza vaccination Flu vaccine (# 1) [facility] Start: 05-04-2021 [facility] Start: 04-25-2021 COVID-19 Vaccine (4 - Booster for Pfizer series) COVID-19 Vaccine (4 - Booster for Pfizer series) [facility] Start: 03-28-2021 COVID-19 Vaccine (4 - Booster for Pfizer series) COVID-19 Vaccine (4 - Booster for Pfizer series) [facility] Start: 01-02-2021 Influenza vaccination Flu vaccine (# 1) [facility] Work Phone: Start: 12-18-2020 End: 12-18-2020 Office Visit 12/18/2020 Office Visit Hematology and Oncology Ino Martinez DO [address] [place] [address] [place] [address] [phone] [facility] Oncology [place] Start: 07-27-2020 COVID-19 VACCINE (3 - Pfizer risk series) COVID-19 VACCINE (3 - Pfizer risk series) [facility] Start: 06-19-2020 End: 06-19-2020 Telemedicine 06/19/2020 Telemedicine Hematology and Oncology Ino Martinez DO [address] [place] [address] [place] [address] [phone] [facility] [place] Start: 06-14-2020 End: 06-14-2020 Office Visit 06/14/2020 Office Visit Hematology and Oncology Ino Martinez, DO [address] [place] [address] [place] [address] [phone] [facility] [place] Start: 02-09-2020 End: 02-09-2020 Office Visit 02/09/2020 Office Visit Orthopedic Surgery Fermin Huang MD [address] [facility] [address] [place] [address] [phone] [facility] [place] Start: 01-03-2020 Influenza vaccination Flu vaccine (# 1) [place], [place] Start: 12-14-2019 End: 12-14-2019 Virtual Visit 12/14/2019 Virtual Visit Family Medicine Yolie Stanton MD [address] [place] [address] [phone] [facility] Start: 09-05-2019 End: 09-05-2019 Office Visit 09/05/2019 Office Visit Hematology and Oncology Lester Mosley, DO [address] [place] [address] [place] [address] [phone] [facility] [place] Start: 03-01-2019 End: 03-01-2019 Office Visit 03/01/2019 Office Visit Hematology and Oncology Lester Mosley, DO [address] [place] [address] [place] [address] [phone] [facility] [place] Start: 01-02-2019 Influenza vaccination Flu vaccine (# 1) [place] Start: 2016 Screening for malign ant neoplasm of cervix [facility] Start: 10-22-2007 Cervical cancer screen Cervical canc er screen [place], [place] Start: 10-22-2007 Screening for malign ant neoplasm of cervix [facility] Start: 2005 Hepatitis B Vaccine (1 of 3 - 19+ 3-dose series) Hepatitis B Vaccine (1 of 3 - 19+ 3-dose series) [facility] Start: 2005 Hepatitis B Vaccines (1 of 3 - 19+ 3-dose series) Hepatitis B Vaccines (1 of 3 - 19+ 3-dose series) [facility] Start: 2005 SHINGRIX VACCINE (1 of 2) SHINGRIX VACCINE (1 of 2) [facility] Start: 2005 Zoster Vaccines (1 o f 2) Zoster Vaccines (1 of 2) [facility] Start: 2004 Anxiety Screening Anxiety Screening [facility] Start: 2004 Depression Screening Depression Scre ening [facility] Start: 2004 Hepatitis C screening [facility] Start: 2001 HIV screen HIV screen [place], [place] Start: 2001 HIV screening HIV screen [facility] Start: 10-22-1999 Varicella vaccination Varicell a Vaccines (1 of 2 - 13+ 2-dose series) [facility] Start: 10-22-1999 Varicella Vaccine (1 of 2 - 13+ 2-dose series) Varicella Vaccine (1 of 2 - 13+ 2-dose series) [place] Start: 1998 Adult depression screening assessment DEPRESSION SCREENING [facility] Start: 1992 PNEUMOCOCCAL (1 - PCV) PNEUMOCOCCAL (1 - PCV) [facility] Start: 1992 Pneumococcal 0-64 ye ars Vaccine (1 - PCV) Pneumococcal 0-64 years Vaccine (1 - PCV) [facility] Start: 1992 Pneumococcal 0-64 ye ars Vaccine (1 of 3 - PCV13) Pneumococcal 0-64 years Vaccine (1 of 3 - PCV13) [place] Start: 1992 Pneumococcal 0-64 ye ars Vaccine (1 of 4 - PCV13) Pneumococcal 0-64 years Vaccine (1 of 4 - PCV13) [facility] Work Phone: Start: 1992 Pneumococcal Vaccine : Pediatrics (0 to 5 Years) and At-Risk Patients (6 to 64 Years) (1 - PCV) Pneumococcal Vaccine: Pediatrics (0 to 5 Years) and At-Risk Patients (6 to 64 Years) (1 - PCV) [facility] Start: 1992 Pneumococcal Vaccine : Pediatrics (0 to 5 Years) and At-Risk Patients (6 to 64 Years) (1 of 2 - PCV) Pneumococcal Vaccine: Pediatrics (0 to 5 Years) and At-Risk Patients (6 to 64 Years) (1 of 2 - PCV) [facility] Start: 10-22-1987 MMR Vaccines (1 of 1 - Standard series) MMR Vaccines (1 of 1 - Standard series) [facility] Start: 10-22-1987 Varicella vaccination Varicell a Vaccines (1 of 2 - 2-dose childhood series) [facility] Start: 10-22-1987 Varicella vaccine (1 of 2 - 2-dose childhood series) Varicella vaccine (1 of 2 - 2-dose childhood series) [facility] Start: 1986 HEPATITIS B (1 of 3 - 3-dose series) HEPATITIS B (1 of 3 - 3-dose series) [facility] Start: 1986 Hepatitis B Vaccine (1 of 3 - 3-dose series) Hepatitis B Vaccine (1 of 3 - 3-dose series) [facility] Start: 1986 Hepatitis B Vaccines (1 of 3 - 3-dose series) Hepatitis B Vaccines (1 of 3 - 3-dose series) [facility] Start: 1986 Hepatitis C screening Hepatitis C [place], [place] Start: 1986 HIV screening HIV Screening [facility] Start: 1986 Thyroglobulin Test Thyroglobulin Jessica t [facility] Start: 1986 Thyroid Cancer Ultrasound Thyroid Cancer Ultrasound [facility] Start: 1986 Thyroid Nodule Ultrasound Thyroid Nodule Ultrasound [facility] Bacteria identified in Urine by Culture URINE CULTURE Microbiology Routine UTI symptoms Ordered: 11/12/2021 [facility] Work Phone: Comment on above: Ordered: 11/12/2021 End: 02-18-2022 CYTOLOGY, NON-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CYTOLOGY, NON-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Lab Routine One Time for 1 Occurrences starting 02/18/2022 until 02/18/2022 [facility] Work Phone: Comment on above: One Time for 1 Occur rences starting 02/18/2022 until 02/18/2022 End: 06-08-2025 DBT Breast - bilateral screening ZAC SCREENING W ZULEMA Radiology Routine Mastodynia of left breast 1 Occurrences starting 05/09/2024 until 06/08/2025 [facility] Comment on above: 1 Occurrences starti ng 05/09/2024 until 06/08/2025 OUTSIDE PROCEDURE SCAN OUTSIDE P ROCEDURE SCAN Procedures Ordered: 07/04/2022 [facility] Comment on above: Ordered: 07/04/2022 OUTSIDE PROCEDURE SCAN OUTSIDE P ROCEDURE SCAN Procedures Ordered: 01/27/2023 [facility] Comment on above: Ordered: 01/27/2023 PAP FLUID CERVICAL SCREENING PAP FLUID CERVICAL SCREENING Lab Routine Encounter for gynecological examination (general) (routine) without abnormal findings Screening for cervical cancer Encounter for screening for human papillomavirus (HPV) 04/24/2022 8:49 AM EST [facility] Work Phone: Patient referral [facility] Work Phone: Tissue exam [facility] Work Phone: Comment on above: Release Upon Orderin g for 1 Occurrences starting 05/22/2022 UA DIP, URINE (POC) UA DIP, URIN E (POC) Lab Routine UTI symptoms Ordered: 11/12/2021 [facility] Work Phone: Comment on above: Ordered: 11/12/2021 End: 06-08-2025 US Breast - left limited US BREAST LTD LEFT Radiology Routine Mastodynia of left breast 1 Occurrences starting 05/09/2024 until 06/08/2025 [facility] Work Phone: Comment on above: 1 Occurrences starti ng 05/09/2024 until 06/08/2025 End: 06-23-2025 US Breast - right limited US BREAST LTD RIGHT Radiology Routine Abnormal mammogram 1 Occurrences starting 05/24/2024 until 06/23/2025 [facility] Work Phone: Comment on above: 1 Occurrences starti ng 05/24/2024 until 06/23/2025 End: 02-04-2022 US THYROID [facility] Work Phone: Comment on above: Once for 1 Occurrenc es starting 02/04/2022 until 02/04/2022 End: 01-28-2023 US Thyroid gland [facility] Work Phone: Comment on above: Once for 1 Occurrenc es starting 01/28/2023 until 01/28/2023 XR TOE AP/LAT/OBL RIGHT XR TOE A P/LAT/OBL RIGHT Radiology Routine Nail dystrophy 04/07/2023 3:57 PM EST [facility] Immunizations Immunization Date Immunization Notes Care Provider Faye dickens 02-11-2022 influenza virus vaccine, unspecified formulation Coty Haney APRN.[employer]LL [employer] Work Phone: [facility] 06-29-2020 Pfizer SARS-CoV-2 Vaccination [facility] Work Phone: [facility] 06-07-2020 Pfizer SARS-CoV-2 Vaccination [facility] Work Phone: [facility] 03-07-2019 influenza virus vaccine, unspecified formulation Yolie Stanton [facility] 03-07-2019 influenza, injectabl e, quadrivalent, contains preservative Dawson Patten PA-C Work Phone: [facility] 02-06-2017 influenza virus vaccine, unspecified formulation Yolie Stanton [place] 02-06-2017 influenza, injectabl e, quadrivalent, contains preservative Dawson CROCKETTC Work Phone: [facility] 12-11-2016 tetanus toxoid, reduced diphtheria toxoid, and acellular pertussis vaccine, adsorbed Yoliefreddy Stanton [facility] Payers Date Payer Category Payer Self-pay [id number] 2024 Self-pay 2019 [facility] PPO [id number] 2019 Blue Cross Blue Shie ld Managed Care - O ANTHEM BLUE CROSS [id number] 2019 Unknown 2019 Unknown [employer] BLUE ACCE SS PPO [id number] 2019-Present [phone] [id number] [place] [id number] PPO [id number] 2019 Unknown BCBS [place] P PO [id number] 2019-Present [id number] [place] [id number] 2018 Unknown [id number] 2016 Unknown [id number] 1986 Unknown [id number] [id number]. 668 1986 Unknown [id number] [id number]. 668 1986 Unknown [id number] [id number]. 668 1986 Unknown [id number] 668 1986 Unknown [id number] [id number] 668 Unknown [id number] 462 Unknown [id number]. 462 Unknown [id number] [id number]. 462 Unknown [id number] [id number]. 462 Unknown [id number] [id number]. 462 Unknown [id number]. 462 Unknown [id number] 462 Social History Date Type Detail Facility Start: 08-09-2018 End: 07-04-2023 Tobacco smoking status MIIS Never smoker [facility] Start: 08-09-2018 End: 04-07-2023 Alcohol intake No [place] Start: 1985 Sex Assigned At Not on file [place] Start: 12-13-2019 End: 04-24-2022 Tobacco use and exposure Never used [place] Start: 12-13-2019 End: 12-18-2020 Alcohol intake Current non-drinker of alcohol (finding) [facility] Work Phone: Start: 05-12-2022 End: 01-15-2023 Exposure to SARS-CoV-2 (event) Not sure [place] Exposure to SARS-CoV -2 (event) Unable to assess [facility] Work Phone: Start: 11-12-2021 End: 07-01-2024 Alcohol intake Current drinker of alcohol (finding) [facility] Start: 05-22-2022 History SDOH IPV Fear 2 [facility] Start: 05-22-2022 Alcohol Comment socially [facility] Start: 05-22-2022 End: 04-07-2023 History of Social function [facility] Within the last year , have you been afraid of your partner or ex-partner? No [facility] National Score (1-100), lower number is lower risk Not on file [facility] Start: 12-02-2021 Sex Female (finding) [facility] Start: 02-21-2017 Alcohol Alcohol [facility] Start: 1985 Sex Assigned At Female [facility] Functional Status Date Assessment Result Facility 01-05-2014 Are you deaf, or do you have serious difficulty hearing No 01/05/2014 8:35 AM RICKYT Rajani Lee MA No [facility] 01-05-2014 Are you blind, or do you have serious difficulty seeing, even when wearing glasses No 01/05/2014 8:35 AM EDT Rajani Lee MA No [facility] 01-05-2014 Do you have serious difficulty walking or climbing stairs No 01/05/2014 8:35 AM RICKYT Rajani Lee MA No [facility] 01-05-2014 Do you have difficul ty dressing or bathing No 01/05/2014 8:35 AM RICKYT Rajani Lee MA No [facility] 01-05-2014 Because of a physica l, mental, or emotional condition, do you have difficulty doing errands alone such as visiting a physician's office or shopping No 01/05/2014 8:35 AM RICKYT Rajani Lee MA No [facility] Mental Status Date Assessment Result Facility 01-05-2014 Because of a physica l, mental, or emotional condition, do you have serious difficulty concentrating, remembering, or making decisions No 01/05/2014 8:35 AM RICKYT Rajani Lee MA No [facility] Clinical Notes 05-20-2017 to 07-07-2024 Note Date & Type Note Facility 07-07-2024 Evaluation note Diagnosis Onset Date Resolution Mass of head acute July 07 025 2:38pm Mass of head acute August 12, 2024 1:58pm [facility] Work Phone: [phone]) [id number] Evaluation note* Diagnosis Onset Date Resolution Status Admit Date Mass of head acute July 07 025 2:38pm Mass of head acute August 12, 2024 1:58pm Mass of head acute September 20 8:07am [facility] Work Phone: 1(430) 767-3925570262-07-2033 NoteHNO ID: [id number] Author: COLLIN CASTELLON PA Service: ? Author Type: Physician Abstract Searcher Type: Progress Notes Filed: 07/01/2024 07:28 Note Text: This note was created using [employer]. Subjective Caroline Allred is a 38 year old female. HPI 38-year-old female presents for a bump on the back of her head. Patient states she noticed it last night. She has never noticed it before. She states it was slightly painful to touch which is why she noticed it. She denies any fevers, drainage. No headaches, vision changes. No other complaint. PAST MEDICAL HISTORY Diagnosis Date Arthritis 2018 Benign cyst of breast, right 2024 calcified at [address] [facility] Cyclical neutropenia (HCC) Cystic fibrosis screening 2016 Had SMA/fragile x and CF screening, all neg. screens Endometriosis History of PCOS Hypotension Infertility, female Irritable bowel syndrome Irritable bowel Migraine, unspecified, with intractable migraine, so stated, without mention of status migrainosus Migraine Myopia Orthostatic hypotension Thyroid cancer (HCC) 05/2022 PAST SURGICAL HISTORY Procedure Laterality Date BIOPSY VAGINAL MUCOSA EXTENSIVE 04/16/2017 revision of perineum/vagina from nonhealinge perineal ob lac CHOLECYSTECTOMY Cholecystectomy HERNIA REPAIR HX PAST SURGICAL HISTORY OF growth left knee PAST SURGICAL HISTORY OF left foot pin toe PAST SURGICAL HISTORY OF right foot THYROID part of thyroid removed ALLERGIES Seasonal Allergies MEDICATIONS Norethindrn A-E Estradiol-Iron (CHAVA 24 FE) 1 mg-20 mcg (24)/75 mg (4) FOR CONTINUOUS USE - take only active pills TURMERIC ORAL Take by mouth. calcium phosphate dibas/vit D3 (VITAMIN D, WITH CALCIUM, ORAL) Take by mouth. Efcjpkjzxge-Hmlomgorr-Lgw C-Mn 500-400 mg cap omeprazole (PRILOSEC) 40 mg capsule as needed. predniSONE (DELTASONE) 10 mg tablet Take 1 tablet by mouth as needed. hydroxychloroquine (PLAQUENIL) 200 mg tablet Take 1 tablet by mouth once daily. docusate sodium (COLACE) 100 mg capsule Take 1 capsule by mouth twice daily. FAMILY HISTORY Problem Relation Age of Onset No Known Problems Mother No Known Problems Father no relationship Cancer Maternal Grandfather Stroke Paternal Grandfather Social History Tobacco Use Smoking status: Never Smokeless tobacco: Never Vaping Use Vaping status: Never Used Substance Use Topics Alcohol use: Yes Comment: social Drug use: No Review of Systems Constitutional: Negative for chills and fever. HENT: Negative for congestion, ear pain and sore throat. Respiratory: Negative for cough and shortness of breath. Cardiovascular: Negative for chest pain. Gastrointestinal: Negative for diarrhea and vomiting. Objective BP 110/76 (BP Position: Sitting) Pulse 83 Resp 16 Wt 50 kg (110 lb 3.7 oz) LMP 06/10/2020 SpO2 98% BMI 19.22 kg/m? Physical Exam Vitals and nursing note reviewed. Constitutional: General: She is not in acute distress. Appearance: Normal appearance. She is not toxic-appearing. HENT: Head: Comments: Approximately the 1.5 cm x 1.5 cm firm nodule/cyst noted over right parietal scalp posterior to the ear. It is within the hairline. No fluctuance, redness or lymphatic streaking. Mild tenderness to touch. No lymphadenopathy. Slightly mobile Nose: Nose normal. Mouth/Throat: Mouth: Mucous membranes are moist. Eyes: Conjunctiva/sclera: Conjunctivae normal. Skin: General: Skin is warm and dry. Neurological: Mental Status: She is alert. Assessment and Plan ASSESSMENT/PLAN: 1. Pilar cyst of scalp - ICD9: 704.41, ICD10: L72.11 -Suspect pilar cyst based on exam. -Recommend follow-up with dermatology. [facility] -May use Tylenol/Motrin as needed for pain -No signs of infection on exam today. Diagnosis and treatment plan were discussed and questions were answered to the patient's satisfaction. Pt acknowledged understanding of concepts and follow up plan. Specific signs and symptoms that would indicate the need for higher level of care were discussed in detail warranting prompt ER evaluation. [facility] [id number] History of Present illness Narrative* Collin Castellon, PA - 07/01/2024 7:26 AM EST Images from the original note were not included. This note was created using [employer]. Subjective Caroline Allred is a 38 year old female. HPI 38-year-old female presents for a bump on the back of her head. Patient states she noticed it last night. She has never noticed it before. She states it was slightly painful to touch which is whyshe noticed it. She denies any fevers, drainage. No headaches, vision changes. No other complaint. PAST MEDICAL HISTORY Diagnosis Date Arthritis 2018 Benign cyst of breast, right 2024 calcified at [address] [facility] Cyclical neutropenia (HCC) Cystic fibrosis screening 2015 Had SMA/fragile x and CF screening, all neg. screens Endometriosis History of PCOS Hypotension Infertility, female Irritable bowel syndrome Irritable bowel Migraine, unspecified, with intractable migraine, so stated, without mention of status migrainosus Migraine Myopia Orthostatic hypotension Thyroid cancer (HCC) 05/2022 PAST SURGICAL HISTORY Procedure Laterality Date BIOPSY VAGINAL MUCOSA EXTENSIVE 04/16/2017 revision of perineum/vagina from nonhealinge perineal ob lac CHOLECYSTECTOMY Cholecystectomy HERNIA REPAIR HX PAST SURGICAL HISTORY OF growth left knee PAST SURGICAL HISTORY OF left foot pin toe PAST SURGICAL HISTORY OF right foot THYROID part of thyroid removed ALLERGIES Seasonal Allergies MEDICATIONS Norethindrn A-E Estradiol-Iron (CHAVA 24 FE) 1 mg-20 mcg (24)/75 mg (4) FOR CONTINUOUS USE - take only active pills TURMERIC ORAL Take by mouth. calcium phosphate dibas/vit D3 (VITAMIN D, WITH CALCIUM, ORAL) Take by mouth. Vtufnvltude-Fmbbolehx-Jsx C-Mn 500-400 mg cap omeprazole (PRILOSEC) 40 mg capsule as needed. predniSONE (DELTASONE) 10 mg tablet Take 1 tablet by mouth as needed. hydroxychloroquine (PLAQUENIL) 200 mg tablet Take 1 tablet by mouth once daily. docusate sodium (COLACE) 100 mg capsule Take 1 capsule by mouth twice daily. FAMILY HISTORY Problem Relation Age of Onset No Known Problems Mother No Known Problems Father no relationship Cancer Maternal Grandfather Stroke Paternal Grandfather Social History Tobacco Use Smoking status: Never Smokeless tobacco: Never Vaping Use Vaping status: Never Used Substance Use Topics Alcohol use: Yes Comment: social Drug use: No Review of Systems Constitutional: Negative for chills and fever. HENT: Negative for congestion, ear pain and sore throat. Respiratory: Negative for cough and shortness of breath. Cardiovascular: Negative for chest pain. Gastrointestinal: Negative for diarrhea and vomiting. Objective BP 110/76 (BP Position: Sitting) Pulse 83 Resp 16 Wt 50 kg (110 lb 3.7 oz) LMP 06/10/2020 SpO2 98% BMI 19.22 kg/m Physical Exam Vitals and nursing note reviewed. Constitutional: General: She is not in acute distress. Appearance: Normal appearance. She is not toxic-appearing. HENT: Head: Comments: Approximately the 1.5 cm x 1.5 cm firm nodule/cyst noted over right parietal scalp posterior to the ear. It is within the hairline. No fluctuance, redness or lymphatic streaking. Mild tenderness to touch. No lymphadenopathy. Slightly mobile Nose: Nose normal. Mouth/Throat: Mouth: Mucous membranes are moist. Eyes: Conjunctiva/sclera: Conjunctivae normal. Skin: General: Skin is warm and dry. Neurological: Mental Status: She is alert. Assessment and Plan ASSESSMENT/PLAN: 1. Pilar cyst of scalp - ICD9: 704.41, ICD10: L72.11 -Suspect pilar cyst based on exam. -Recommend follow-up with dermatology. Patient states she will call [facility] to schedule follow-up. -May use Tylenol/Motrin as needed for pain -No signs of infection on exam today. Diagnosis and treatment plan were discussed and questions were answered to the patient's satisfaction. Pt acknowledged understanding of concepts and follow up plan. Specific signs and symptoms that would indicate the need for higher level of care were discussed in detail warranting prompt ER evaluation. [facility]25 NoteHNO ID: [id number] Author: COTY HANEY APRN.WELL LOGGER Service: ? Author Type: Nurse Practitioner Type: Progress Notes Filed: 06/30/2024 19:32 Note Text: Caroline is a 38 year old who presents for an annual gynecologic exam without complaints. Menses: none due to OCP - recent break through bleeding after taking fish oil. She has since stopped it. Contraception: vasectomy. HPV vaccine: No Last Pap: 04/24/2022 normal HPV: negative History of abnormal pap: No Last mammogram: 05/24/2024 [facility] and ultrasound calcified cyst right breast Sexually active: Yes Patient concerns for STD exposure: No. Time with current partner: 14 years History of PCOS: Yes History of endometriosis: Yes - removed with surgery Pain with intercourse: No Postcoital bleeding: No Documentation from previous visit of 04/24/2022 was copied and pasted, documentation has been reviewed and edited as necessary for today's visit. OB History Gravida2 Para1 Term1 Preterm0 AB1 Living1 SAB1 IAB0 Ectopic0 Multiple0 Live Births1 Comment: G1 SAB, no DANDC 3 children total; 1 biological child Emergency Care Tech History LMP: 06/10/2020, Drug Induced Amenorrhea Age at Menarche: Age at First : Age at Menopause: Emergency Care Tech History Comments: Sexual Activity: Yes; Male Contraception: Vasectomy PAST MEDICAL HISTORY Diagnosis Date Arthritis 2019 Cyclical neutropenia (HCC) Cystic fibrosis screening 2016 Had SMA/fragile x and CF screening, all neg. screens Endometriosis History of PCOS Hypotension Infertility, female Irritable bowel syndrome Irritable bowel Migraine, unspecified, with intractable migraine, so stated, without mention of status migrainosus Migraine Myopia Orthostatic hypotension Thyroid cancer (HCC) 05/2022 PAST SURGICAL HISTORY Procedure Laterality Date BIOPSY VAGINAL MUCOSA EXTENSIVE 04/16/2017 revision of perineum/vagina from nonhealinge perineal ob lac CHOLECYSTECTOMY Cholecystectomy HERNIA REPAIR HX PAST SURGICAL HISTORY OF growth left knee PAST SURGICAL HISTORY OF left foot pin toe PAST SURGICAL HISTORY OF right foot THYROID part of thyroid removed FAMILY HISTORY Problem Relation Age of Onset No Known Problems Mother No Known Problems Father no relationship Cancer Maternal Grandfather Stroke Paternal Grandfather SOCIAL HISTORY Social History Tobacco Use Smoking status: Never Smokeless tobacco: Never Vaping Use Vaping status: Never Used Substance Use Topics Alcohol use: Yes Comment: social Drug use: No REVIEW OF SYSTEMS Abdomen: No abdominal pain, nausea, vomiting, diarrhea, or constipation. No bloating, early satiety, indigestion, or increased flatulence. Bladder: No dysuria, gross hematuria, urinary frequency, urinary urgency, or incontinence. Breast: No breast lumps, nipple d/c, overlying skin changes, redness or skin retraction. Allergies and current medication updated:Yes SENSITIVE EXAM: The sensitive examination was discussed with the Patient or Patient's Authorized Ship Propeller Finisher. As applicable, any other physician, advance practice provider, medical student, or other health professional student that will be observing or involved in the sensitive examination for educational or training purposes was discussed with the Patient or Authorized Ship Propeller Finisher. The Patient or Authorized Ship Propeller Finisher has agreed to proceed with the sensitive examination. (Sensitive examination includes inspection and/or palpation of the breasts, pelvis, prostate and anorectal regions). EXAM: BP 115/75 Ht 5' 3.5 (1.61m) Wt 111 lb (50.3kg) LMP 06/10/2020 BMI 19.35 kg/(m2). GENERAL: pleasant, female in no apparent distress HEENT: Normocephalic, atraumatic, mucus membranes moist, and no lesions NECK: Supple, full range of motion, no adenopathy, and thyroid normal DERMATOLOGY: Normal, without lesions, non-icteric, and non-hirsute BREAST: soft, non-tender, symmetric, no dominant mass, normal nipple-areolar complex, no lymphadenopathy, and no nipple discharge CHEST: Normal inspiratory effort ABDOMEN: soft, non-tender, and no masses PELVIC: external genitalia normal, normal Bartholin's glands, urethra, Tetlin's glands, no vulvar lesions, no cervical lesions, good vaginal support, physiologic discharge present, normal appearing perineal body and perianal region BIMANUAL: uterus normal size, shape and consistency, no adnexal masses, and non-tender RECTOVAGINAL: deferred. NEURO: alert and oriented x3,exam grossly non-focal EXTREMITIES: normal ASSESSMENT/PLAN: 1) Health maintenance: Pap/HPV up to date. Mammogram starting age 40. Nutrition, exercise and routine health maintenance exams reviewed. 2) Contraception: combined hormonal contraceptives. Contraceptive options reviewed and information provided. 3) STD screening: Declined STD check. 4) Follow up one year or sooner as needed Coty Haney APRN.[facility]02-27-2025 History of Present illness Narrative* Coty Haney APRN.[facility] - 06/30/2024 2:01 PM EST Caroline is a 38 year old who presents for an annual gynecologic exam without complaints. Menses: none due to OCP - recent break through bleeding after taking fish oil. She has since stopped it. Contraception: vasectomy. HPV vaccine: No Last Pap: 04/24/2022 normal HPV: negative History of abnormal pap: No Last mammogram: 05/24/2024 [facility] and ultrasound calcified cyst right breast Sexually active: Yes Patient concerns for STD exposure: No. Time with current partner: 14 years History of PCOS: Yes History of endometriosis: Yes - removed with surgery Pain with intercourse: No Postcoital bleeding: No Documentation from previous visit of 04/24/2022 was copied and pasted, documentation has been reviewed and edited as necessary for today's visit. OB History Gravida2 Para1 Term1 Preterm0 AB1 Living1 SAB1 IAB0 Ectopic0 Multiple0 Live Births1 Comment: G1 SAB, no D&C 3 children total; 1 biological child Emergency Care Tech History LMP: 06/10/2020, Drug Induced Amenorrhea Age at Menarche: Age at First : Age at Menopause: Emergency Care Tech History Comments: Sexual Activity: Yes; Male Contraception: Vasectomy PAST MEDICAL HISTORY Diagnosis Date Arthritis 2019 Cyclical neutropenia (HCC) Cystic fibrosis screening 2016 Had SMA/fragile x and CF screening, all neg. screens Endometriosis History of PCOS Hypotension Infertility, female Irritable bowel syndrome Irritable bowel Migraine, unspecified, with intractable migraine, so stated, without mention of status migrainosus Migraine Myopia Orthostatic hypotension Thyroid cancer (HCC) 05/2022 PAST SURGICAL HISTORY Procedure Laterality Date BIOPSY VAGINAL MUCOSA EXTENSIVE 04/16/2017 revision of perineum/vagina from nonhealinge perineal ob lac CHOLECYSTECTOMY Cholecystectomy HERNIA REPAIR HX PAST SURGICAL HISTORY OF growth left knee PAST SURGICAL HISTORY OF left foot pin toe PAST SURGICAL HISTORY OF right foot THYROID part of thyroid removed FAMILY HISTORY Problem Relation Age of Onset No Known Problems Mother No Known Problems Father no relationship Cancer Maternal Grandfather Stroke Paternal Grandfather SOCIAL HISTORY Social History Tobacco Use Smoking status: Never Smokeless tobacco: Never Vaping Use Vaping status: Never Used Substance Use Topics Alcohol use: Yes Comment: social Drug use: No REVIEW OF SYSTEMS Abdomen: No abdominal pain, nausea, vomiting, diarrhea, or constipation. No bloating, early satiety, indigestion, or increased flatulence. Bladder: No dysuria, gross hematuria, urinary frequency, urinary urgency, or incontinence. Breast: No breast lumps, nipple d/c, overlying skin changes, redness or skin retraction. Allergies and current medication updated:Yes SENSITIVE EXAM: The sensitive examination was discussed with the Patient or Patient's Authorized Ship Propeller Finisher. As applicable, any other physician, advance practice provider, medical student, or other health professional student that will be observing or involved in the sensitive examination for educational or training purposes was discussed with the Patient or Authorized Ship Propeller Finisher. The Patient or Authorized Ship Propeller Finisher has agreed to proceed with the sensitive examination. (Sensitive examination includes inspection and/or palpation of the breasts, pelvis, prostate and anorectal regions). EXAM: BP 115/75 Ht 5' 3.5 (1.61m) Wt 111 lb (50.3kg) LMP 06/10/2020 BMI 19.35 kg/(m^2). GENERAL: pleasant, female in no apparent distress HEENT: Normocephalic, atraumatic, mucus membranes moist, and no lesions NECK: Supple, full range of motion, no adenopathy, and thyroid normal DERMATOLOGY: Normal, without lesions, non-icteric, and non-hirsute BREAST: soft, non-tender, symmetric, no dominant mass, normal nipple-areolar complex, no lymphadenopathy, and no nipple discharge CHEST: Normal inspiratory effort ABDOMEN: soft, non-tender, and no masses PELVIC: external genitalia normal, normal Bartholin's glands, urethra, Tetlin's glands, no vulvar lesions, no cervical lesions, good vaginal support, physiologic discharge present, normal appearing perineal body and perianal region BIMANUAL: uterus normal size, shape and consistency, no adnexal masses, and non-tender RECTOVAGINAL: deferred. NEURO: alert and oriented x3,exam grossly non-focal EXTREMITIES: normal ASSESSMENT/PLAN: 1) Health maintenance: Pap/HPV up to date. Mammogram starting age 40. Nutrition, exercise and routine health maintenance exams reviewed. 2) Contraception: combined hormonal contraceptives. Contraceptive options reviewed and information provided. 3) STD screening: Declined STD check. 4) Follow up one year or sooner as needed Coty Haney APRN.WELL LOGGER documented in this encounterV[facility]01-21-2025 Telephone encounter Note * Telephone Encounter - Terra Juarez RN - 05/24/2024 10:36 AM EST Faxed via [employer]. Terra Juarez RN [facility]01-21-2025 Miscellaneous Notes* Telephone Encounter - Terra Juarez RN - 05/24/2024 10:36 AM EST Faxed via [employer]. Terra Juarez RN * Telephone Encounter - Sujatha Nunn APRN.CNM - 05/24/2024 10:27 AM EST Order signed. * Telephone Encounter - Terra Juarez RN - 05/24/2024 10:15 AM EST AT patient. [facility] Mammography called. Patient is there now having diagnostic imaging. The radiologistwould like to also do a right breast US. Can you please file the order. We will then fax to [phone] Terra Juarez RN documented in this encounterVeter[facility] Administration01-21-2025 Telephone encounter Note * Telephone Encounter - Sujatha Nunn APRN.CNM - 05/24/2024 10:27 AM EST Order signed. [facility] Work Phone: [phone] Telephone encounter Note* Telephone Encounter - Terra Juarez RN - 05/24/2024 10:15 AM EST AT patient. [facility] Mammography called. Patient is there now having diagnostic imaging. The radiologistwould like to also do a right breast US. Can you please file the order. We will then fax to [phone] Terra Juarez RN [facility]01-14-2025 Telephone encounter Note* Telephone Encounter - Terra Juarez RN - 05/17/2024 2:28 PM EST Orders faxed via [employer] to [facility]. Terra Juarez RN [facility]01-14-2025 Miscellaneous Notes* Telephone Encounter - Terra Juarez RN - 05/17/2024 2:28 PM EST Orders faxed via [employer] to [facility]. 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 on 05/24/24 at 9:30 Am, patient is aware please fax orders to [phone] [facility]01-06-2025 NoteHNO ID: [id number] Author: ALPESH LONGORIA MD Service: ? Author Type: Physician Type: Progress Notes Filed: 05/09/2024 14:43 Note Text: Lithograph Printer offered: Patient accepts, visit chaperoned by Michelle Davila MA. Caroline Allred is a 38 year old female who presents for problem visit with c/o left nipple pain of 5 days duration on two separate occasions over the past yolanda. . HPI: as above OB History T1 L1 SAB1 IAB0 Ectopic0 Multiple0 Live Births1 Comment: G1 SAB, no DANDC 3 children total; 1 biological child Emergency Care Tech History LMP: 06/10/2020, Drug Induced Amenorrhea Age at Menarche: Age at First : Age at Menopause: Emergency Care Tech History Comments: Sexual Activity: Yes; Male Contraception: Vasectomy PAST MEDICAL HISTORY Diagnosis Date Arthritis 2019 Cyclical neutropenia (HCC) Cystic fibrosis screening 2016 Had SMA/fragile x and CF screening, all neg. screens Endometriosis History of PCOS Hypotension Infertility, female Irritable bowel syndrome Irritable bowel Migraine, unspecified, with intractable migraine, so stated, without mention of status migrainosus Migraine Myopia Orthostatic hypotension Thyroid cancer (HCC) 05/2022 PAST SURGICAL HISTORY Procedure Laterality Date BIOPSY VAGINAL MUCOSA EXTENSIVE 04/16/2017 revision of perineum/vagina from nonhealinge perineal ob lac CHOLECYSTECTOMY Cholecystectomy HERNIA REPAIR HX PAST SURGICAL HISTORY OF growth left knee PAST SURGICAL HISTORY OF left foot pin toe PAST SURGICAL HISTORY OF right foot THYROID part of thyroid removed FAMILY HISTORY Problem Relation Age of Onset No Known Problems Mother No Known Problems Father no relationship Cancer Maternal Grandfather Stroke Paternal Grandfather Social History Tobacco Use Smoking status: Never Smokeless tobacco: Never Vaping Use Vaping status: Never Used Substance Use Topics Alcohol use: Yes Comment: social Drug use: No Current Outpatient Medications Medication Sig Norethindrn A-E Estradiol-Iron (CHAVA 24 FE) 1 mg-20 mcg (24)/75 mg (4) FOR CONTINUOUS USE - take only active pills Llgqiqbzcfk-Hlwnuszxk-Wgo C-Mn 500-400 mg cap predniSONE (DELTASONE) 10 mg tablet Take 1 tablet by mouth as needed. hydroxychloroquine (PLAQUENIL) 200 mg tablet Take 1 tablet by mouth once daily. docusate sodium (COLACE) 100 mg capsule Take 1 capsule by mouth twice daily. omeprazole (PRILOSEC) 40 mg capsule (Patient not taking: Reported on 04/07/2023) VITAFOL GUMMIES 3.33 mg iron- 0.33 mg chew TAKE 3 GUMMIES BY MOUTH EVERY DAY No current facility-administered medications for this visit. Allergies As of Date: 05/09/2024 Allergen Noted Reaction SEASONAL ALLERGIES 04/24/2022 Itching Fully Assessed 05/09/2024 REVIEW OF SYSTEMS Abdomen: No bloating, early satiety, indigestion, or increased flatulence. No abdominal pain, nausea, vomiting, diarrhea, or constipation. Bladder: No dysuria, gross hematuria, urinary frequency, urinary urgency, or incontinence. Breast: as above. Expanded ROS: N/A Allergies and current medication updated:Yes SENSITIVE EXAM: The sensitive examination was discussed with the Patient or Patient's Authorized Ship Propeller Finisher. As applicable, any other physician, advance practice provider, medical student, or other health professional student that will be observing or involved in the sensitive examination for educational or training purposes was discussed with the Patient or Authorized Ship Propeller Finisher. The Patient or Authorized Ship Propeller Finisher has agreed to proceed with the sensitive examination. (Sensitive examination includes inspection and/or palpation of the breasts, pelvis, prostate and anorectal regions). EXAM: Wt 112 lb (50.8kg) LMP 06/10/2020 Breast bilaterally symmetrical, no masses, lymphadenopathy or nipple discharge. GENERAL: pleasant, female in no apparent distress ASSESSMENT AND PLAN: unilateral nipple pain with a normal examination Assessment AND Plan Alpesh Longoria, [facility]01-06-2025 History of Present illness Narrative* Alpesh Longoria MD - 05/09/2024 1:35 PM EST Lithograph Printer offered: Patient accepts, visit chaperoned by Michelle Davila MA. Caroline Allred is a 38 year old female who presents for problem visit with c/o left nipple pain of 5 days duration on two separate occasions over the past yolanda. . HPI: as above OB History T1 L1 SAB1 IAB0 Ectopic0 Multiple0 Live Births1 Comment: G1 SAB, no D&C 3 children total; 1 biological child Emergency Care Tech History LMP: 06/10/2020, Drug Induced Amenorrhea Age at Menarche: Age at First : Age at Menopause: Emergency Care Tech History Comments: Sexual Activity: Yes; Male Contraception: Vasectomy PAST MEDICAL HISTORY Diagnosis Date Arthritis 2019 Cyclical neutropenia (HCC) Cystic fibrosis screening 2016 Had SMA/fragile x and CF screening, all neg. screens Endometriosis History of PCOS Hypotension Infertility, female Irritable bowel syndrome Irritable bowel Migraine, unspecified, with intractable migraine, so stated, without mention of status migrainosus Migraine Myopia Orthostatic hypotension Thyroid cancer (HCC) 05/2022 PAST SURGICAL HISTORY Procedure Laterality Date BIOPSY VAGINAL MUCOSA EXTENSIVE 04/16/2017 revision of perineum/vagina from nonhealinge perineal ob lac CHOLECYSTECTOMY Cholecystectomy HERNIA REPAIR HX PAST SURGICAL HISTORY OF growth left knee PAST SURGICAL HISTORY OF left foot pin toe PAST SURGICAL HISTORY OF right foot THYROID part of thyroid removed FAMILY HISTORY Problem Relation Age of Onset No Known Problems Mother No Known Problems Father no relationship Cancer Maternal Grandfather Stroke Paternal Grandfather Social History Tobacco Use Smoking status: Never Smokeless tobacco: Never Vaping Use Vaping status: Never Used Substance Use Topics Alcohol use: Yes Comment: social Drug use: No Current Outpatient Medications Medication Sig Norethindrn A-E Estradiol-Iron (CHAVA 24 FE) 1 mg-20 mcg (24)/75 mg (4) FOR CONTINUOUS USE - take only active pills Iandfcqqamv-Aajmijqwy-Dwr C-Mn 500-400 mg cap predniSONE (DELTASONE) 10 mg tablet Take 1 tablet by mouth as needed. hydroxychloroquine (PLAQUENIL) 200 mg tablet Take 1 tablet by mouth once daily. docusate sodium (COLACE) 100 mg capsule Take 1 capsule by mouth twice daily. omeprazole (PRILOSEC) 40 mg capsule (Patient not taking: Reported on 04/07/2023) VITAFOL GUMMIES 3.33 mg iron- 0.33 mg chew TAKE 3 GUMMIES BY MOUTH EVERY DAY No current facility-administered medications for this visit. Allergies As of Date: 05/09/2024 Allergen Noted Reaction SEASONAL ALLERGIES 04/24/2022 Itching Fully Assessed 05/09/2024 REVIEW OF SYSTEMS Abdomen: No bloating, early satiety, indigestion, or increased flatulence. No abdominal pain, nausea, vomiting, diarrhea, or constipation. Bladder: No dysuria, gross hematuria, urinary frequency, urinary urgency, or incontinence. Breast: as above. Expanded ROS: N/A Allergies and current medication updated:Yes SENSITIVE EXAM: The sensitive examination was discussed with the Patient or Patient's Authorized Ship Propeller Finisher. As applicable, any other physician, advance practice provider, medical student, or other health professional student that will be observing or involved in the sensitive examination for educational or training purposes was discussed with the Patient or Authorized Ship Propeller Finisher. The Patient or Authorized Ship Propeller Finisher has agreed to proceed with the sensitive examination. (Sensitive examination includes inspection and/or palpation of the breasts, pelvis, prostate and anorectal regions). EXAM: Wt 112 lb (50.8kg) LMP 06/10/2020 Breast bilaterally symmetrical, no masses, lymphadenopathy or nipple discharge. GENERAL: pleasant, female in no apparent distress ASSESSMENT AND PLAN: unilateral nipple pain with a normal examination Assessment & Plan Alpesh Longoria MD documented in this encounterV[facility]12-27-2024 Telephone encounter Note * Telephone Encounter - Terra Juarez RN - 04/29/2024 8:19 AM EST Due for a yearly exam. Requested Prescriptions Pending Prescriptions Disp Refills Norethindrn A-E Estradiol-Iron (CHAVA 24 FE) 1 mg-20 mcg (24)/75 mg (4) 112 tablet 0 Sig: FOR CONTINUOUS USE - take only active pills Recent Office Visits - This Specialty 04/24/2023 Encounter for gynecological examination (general) (routine) without abnormal findings OB/Gynecology Pelon Gonzalez MD 04/24/2022 Encounter for gynecological examination (general) (routine) without abnormal findings OB/Gynecology Coty Haney APRN.CNP 06/15/2020 Encounter for gynecological examination without abnormal finding OB/Gynecology Coty Haney APRN.JAMES Next visit in this department: Visit date not found Terra Juarez RN [facility]12-27-2024 Miscellaneous Notes* Telephone Encounter - Terra Juarez RN - 04/29/2024 8:19 AM EST Due for a yearly exam. Requested Prescriptions Pending Prescriptions Disp Refills Norethindrn A-E Estradiol-Iron (CHAVA 24 FE) 1 mg-20 mcg (24)/75 mg (4) 112 tablet 0 Sig: FOR CONTINUOUS USE - take only active pills Recent Office Visits - This Specialty 04/24/2023 Encounter for gynecological examination (general) (routine) without abnormal findings OB/Gynecology Pelon Gonzalez MD 04/24/2022 Encounter for gynecological examination (general) (routine) without abnormal findings OB/Gynecology Coty Haney APRN.CNP 06/15/2020 Encounter for gynecological examination without abnormal finding OB/Gynecology Coty Haney APRN.CNP Next visit in this department: Visit date not found Terra Juarez, RN documented in this encounterVeterans Health Administration08-14-2024 History of Present illness Narrative* Ino Martinez, - 12/16/2023 11:00 AM EDT Hematology/Oncology Follow up Visit Diagnosis/Treatment Summary: 1) cyclic neutropenia - Patient originally presented to her PCP in May 2018 with shoulder and hip pain. CBC showed an ANCof 900, wbc of 2.0, and plts 137K. Hb 13.6. She had been referred in the past to hematology for problems with neutropenia around 2010, but no diagnosis was rendered. She did have a positive DEVIN was referred to rheumatology. She was started on Plaquenil for an inflammatory arthritis. Other rheumatology results were largely unremarkable. Evaluation for neutropenia was unremarkable as well. It was noted that her neutropenia seemed to cycle in 3-4 weeks periods and she would have periods of complete recovery. ELANE mutation analysis was considered however the patient has been asymptomatic and hasnever had recurrent or severe infections, so she has been monitored off treatment. Her ANC has never been below 500 Interval History: Caroline Allred is a 38 y.o. female who comes in today for routine follow up. She feels well todayand has no concerns. 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 She had a CBC with diff at [facility] in October which showed normal WBC and ANC, and her most recent CBC in October 2023 showed aWBC of 3.7 with ANC of 1700. She denies any infections or fevers. She denies any chest pain, shortness of breath, abdominal pain, weight loss. 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 She also has a component of fibromyalgia. Review of Systems Constitutional: Positive for fatigue. Negative for appetite change, chills, diaphoresis, fever and unexpected weight change. HENT: Negative for dental problem, mouth sores, nosebleeds, sneezing, sore throat, tinnitus, trouble swallowing and voice change. Eyes: Negative for photophobia, pain and visual disturbance. Respiratory: Negative for cough, shortness of breath and wheezing. Cardiovascular: Negative for chest pain, palpitations and leg swelling. Gastrointestinal: Negative for abdominal distention, abdominal pain, blood in stool, constipation, diarrhea, nausea and vomiting. Endocrine: Negative for cold intolerance and heat intolerance. Genitourinary: Negative for difficulty urinating, frequency, hematuria and urgency. Musculoskeletal: Positive for arthralgias. Negative for back pain, gait problem and myalgias. Skin: Negative for pallor and rash. Allergic/Immunologic: Negative for immunocompromised state. Neurological: Negative for dizziness, syncope, weakness, light-headedness, numbness and headaches. Hematological: Negative for adenopathy. Does not bruise/bleed easily. Psychiatric/Behavioral: Negative for confusion and sleep disturbance. The patient is not nervous/anxious. All other systems reviewed and are negative. 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 Social History Tobacco Use Smoking status: Never Smokeless tobacco: Never Substance Use Topics Alcohol use: Yes Comment: socially No Known Allergies Current Outpatient Medications Medication Sig Dispense Refill docusate sodium (Colace) 50 MG capsule Take by mouth 2 times daily. Glucosamine-Chondroitin 250-200 MG capsule Take 1 tablet by mouth 3 times daily. hydroxychloroquine (Plaquenil) 200 MG tablet Take by mouth. loratadine (Claritin) 10 MG tablet Take by mouth. norethindrone ac-eth estradio (Shannon ) 1.5-30 MG-MCG tablet tablet 1 tablet daily. omeprazole (PriLOSEC) [address] capsule Take 20 mg by mouth every morning (before breakfast). Do notcrush or chew. No current facility-administered medications for this visit. Blood pressure 101/66, pulse 62, temperature 36.9 C (98.4 F), resp. rate 18, weight 51.9 kg (114 lb6.4 oz), SpO2 100%. ECO Physical Exam Vitals and nursing note reviewed. Constitutional: General: She is not in acute distress. Appearance: Normal appearance. She is not ill-appearing. HENT: Head: Normocephalic and atraumatic. Nose: Nose normal. Mouth/Throat: Pharynx: Oropharynx is clear. No oropharyngeal exudate or posterior oropharyngeal erythema. Eyes: General: No scleral icterus. Extraocular Movements: Extraocular movements intact. Conjunctiva/sclera: Conjunctivae normal. Pupils: Pupils are equal, round, and reactive to light. Cardiovascular: Rate and Rhythm: Normal rate and regular rhythm. Heart sounds: Normal heart sounds. No murmur heard. Pulmonary: Effort: Pulmonary effort is normal. No respiratory distress. Breath sounds: Normal breath sounds. No wheezing. Abdominal: General: Abdomen is flat. Bowel sounds are normal. There is no distension. Palpations: Abdomen is soft. There is no mass. Tenderness: There is no abdominal tenderness. There is no guarding. Musculoskeletal: General: No swelling or tenderness. Normal range of motion. Cervical back: Normal range of motion and neck supple. Right lower leg: No edema. Left lower leg: No edema. Lymphadenopathy: Cervical: No cervical adenopathy. Skin: General: Skin is warm and dry. Findings: No bruising or rash. Neurological: General: No focal deficit present. Mental Status: She is alert and oriented to person, place, and time. Mental status is at baseline. Psychiatric: Mood and Affect: Mood normal. Thought Content: Thought content normal. No visits with results within 1 Month(s) from this visit. Latest known visit with results is: Transcribe Orders on 07/04/2022 Component Date Value Ref Range Status Auto WBC 07/04/2022 3.9 3.6 - 10.7 10*3/uL Final RBC 07/04/2022 4.38 3.8 - 5.20 10*6/uL Final Hemoglobin 07/04/2022 14.1 11.7 - 16.0 g/dL Final Hematocrit 07/04/2022 37.9 35.0 - 47.0 % Final MCV 07/04/2022 86.5 80.0 - 98.0 fL Final MCH 07/04/2022 32.2 26.0 - 34.0 pg Final MCHC 07/04/2022 37.2 (H) 32.0 - 36.0 % Final RDW 07/04/2022 12.2 11.5 - 14.5 % Final Platelets 07/04/2022 200 140 - 440 10*3/uL Final MPV 07/04/2022 10.7 7.4 - 12.4 fL Final MPV is a calculated measurement using platelet volume ratio Neutrophils Relative 07/04/2022 55.2 40.0 - 80.0 % Final Lymphocytes Relative 07/04/2022 35.8 20.0 - 40.0 % Final Monocytes Relative 07/04/2022 4.9 2.0 - 10.0 % Final Eosinophils Relative 07/04/2022 2.8 1.0 - 6.0 % Final Basophils Relative 07/04/2022 1.3 0.0 - 2.0 % Final Immature Grans % 07/04/2022 0.0 <=0.0 % Final Neutrophils Absolute 07/04/2022 2.2 1.8 - 7.0 10*3/uL Final Lymphocytes Absolute 07/04/2022 1.4 1.0 - 4.3 10*3/uL Final Monocytes Absolute 07/04/2022 0.2 0.0 - 0.8 10*3/uL Final Eosinophils Absolute 07/04/2022 0.1 0.0 - 0.5 10*3/uL Final Basophils Absolute 07/04/2022 0.1 0.0 - 0.2 10*3/uL Final Immature Grans Absolute 07/04/2022 0.0 <=0.0 10*3/uL Final Imaging Results: none - I have reviewed all pertinent laboratory, imaging, and pathology results with the patient and/or family members present. Assessment/Plan: Diagnosis Plan 1. Other neutropenia (CMS/HCC) (HCC) - See details of presentation as noted above - Patient seems to fit the pattern for cyclic neutropenia, with full recovery of her counts every 3-4 weeks. Other prior extensive evaluation for neutropenia has been unremarkable although she has not had a bone marrow biopsy. She has a positive DEVIN and an underlying autoimmune disorder is suspected. She follows with rheumatology and is treated with Plaquenil for inflammatory arthritis. She follows with rheumatology at [facility] regularly and her CBC is monitored every 6 months. She is asymptomatic in regards to the neutropenia and has no history of recurrent or severe infections - Patient instructed to monitor for fevers or infections and call with any concerns - consider ELANE mutational testing in the future for diagnosis of cyclic neutropenia. The goal of treatment for cyclic neutropenia is to maintain the ANC >500 and her ANC has always been >500. All questions were answered to the satisfaction of the patient and/or family. Return to office in 12 months or sooner if worrisome signs/symptoms arise. Ino Martinez DO Hematology/Medical Oncology documented in this [facility]02-08-2024 History of Present illness Narrative* Valerio Calhoun - 06/11/2023 12:13 PM EST FOLLOW UP PODIATRIC OFFICE VISIT Chief Complaint: This 37 year old who presents for follow up:right 2nd toenail deformity Patient presents to clinic for follow-up right 2nd nail deformity. Patient has no pain Has noticed that the dry scaly skin beneath the nail plate is improving Is back to running without pain PAIN EVALUATION No data found in the last 1 encounters. No results found for: HBA1C PCP: Yolie Stanton MD PAST MEDICAL HISTORY Diagnosis Date Arthritis 2018 Cyclical neutropenia (HCC) Cystic fibrosis screening 2016 Had SMA/fragile x and CF screening, all neg. screens Endometriosis History of PCOS Hypotension Infertility, female Irritable bowel syndrome Irritable bowel Migraine, unspecified, with intractable migraine, so stated, without mention of status migrainosus Migraine Myopia Orthostatic hypotension Thyroid cancer (HCC) 05/2022 Current Outpatient Medications Medication Sig Norethindrn A-E Estradiol-Iron (CHAVA 24 FE) 1 mg-20 mcg (24)/75 mg (4) FOR CONTINUOUS USE - take only active pills Nvnhltsshse-Hutugaiub-Rku C-Mn 500-400 mg cap predniSONE (DELTASONE) 10 mg tablet Take 1 tablet by mouth as needed. hydroxychloroquine (PLAQUENIL) 200 mg tablet Take 1 tablet by mouth once daily. docusate sodium (COLACE) 100 mg capsule Take 1 capsule by mouth twice daily. VITAFOL GUMMIES 3.33 mg iron- 0.33 mg chew TAKE 3 GUMMIES BY MOUTH EVERY DAY omeprazole (PRILOSEC) 40 mg capsule (Patient not taking: Reported on 04/07/2023) No current facility-administered medications for this visit. ALLERGIES Allergen Reactions Seasonal Allergies Itching PAST SURGICAL HISTORY Procedure Laterality Date BIOPSY VAGINAL MUCOSA EXTENSIVE 04/16/2017 revision of perineum/vagina from nonhealinge perineal ob lac CHOLECYSTECTOMY Cholecystectomy HERNIA REPAIR HX PAST SURGICAL HISTORY OF growth left knee PAST SURGICAL HISTORY OF left foot pin toe PAST SURGICAL HISTORY OF right foot THYROID part of thyroid removed Physical Exam: OBJECTIVE: Constitutional: Pt is a well developed 37 year old female who is alert, oriented, cooperative and in no apparent distress. Eyes: Following during examination. No redness or drainage. Respiratory: RR normal and nonlabored. Even breathing. No evidence of distress. Psychology: Patient is engaged during conversation. Normal affect and mood. Does not appear depressed or anxious. NVSI unchanged from previous visit. Dermatological: Right 2nd nail appears to be pincer nail but no pain and no signs of infection. Past skin scaling documented on pic on 04/11/23 does appear to be improving. Musculoskeletal/Orthopaedic: Patient has no pain to palpation of right 2nd toe Past xray reviewed. There is a very tiny spur of right 2nd toe ASSESSMENT: (L60.3) Nail dystrophy (primary encounter diagnosis) PLAN: Discussed appearance of right 2nd nail. I do see a very tiny spur of right 2nd toe distal tuf. Thismay be reason why the nail is pincer in appearance. She has no pain. The scaling of skin is improved If she has no pain, she can monitor If she does have pain, options include possible spur resection vs total nail matrixectomy. I probably would consider more toenail matrixectomy as the spur is very small. For now, she has no pain. She is going to monitor Follow-up prn Valerio Calhoun DPM * Ronda Cornelius LPN - 06/11/2023 8:10 AM EST AMB ROOMING INTAKE FLOWSHEET DATA Risk Screening Do you have concerns about personal safety or safety in the home?: No Patient presents with: Right 2nd Toe - Established Patient, Follow Up Patient present to discuss option following pathology and imaging. Ronda Cornelius LPN [facility] History of Present illness Narrative* Ino Peralta RT(R) - 04/07/2023 3:50 PM EST Radiology Service Progress Note PATIENT NAME: Caroline Allred DATE OF SERVICE: April 07, 2023 TIME: 3:49 PM PATIENT IDENTITY VERIFICATION COMPLETED USING TWO (2) IDENTIFIERS: Name and Date of confirmedby patient verbally. FALL SCREENING: Has the patient had 2 falls in the last year or 1 fall with injury or currently using an Ambulatory Assistive Device (Walker, Cane, Wheelchair, Crutches, etc.)? No PATIENT GENDER DATA: Female. status: : No status: NO. PATIENT RELEVANT IMPLANT DATA REVIEWED: Not Applicable RADIOLOGY DEPARTMENT: General X-ray: Exam(s) Completed: Lower Extremity X- Ray(s): Toes, Right PERIPHERAL IV DATA: Not applicable SIGNED BY: RT Carlos(R) April 07, 2023 3:49 PM documented in this [facility]08-09-2023 History of Present illness Narrative* Ino Martinez DO - 12/10/2022 10:45 AM EDT Hematology/Oncology Follow up Visit Diagnosis/Treatment Summary: 1) cyclic neutropenia - Patient originally presented to her PCP in May 2018 with shoulder and hip pain. CBC showed an ANCof 900, wbc of 2.0, and plts 137K. Hb 13.6. She had been referred in the past to hematology for problems with neutropenia around 2010, but no diagnosis was rendered. She did have a positive DEVIN was referred to rheumatology. She was started on Plaquenil for an inflammatory arthritis. Other rheumatology results were largely unremarkable. Evaluation for neutropenia was unremarkable as well. It was noted that her neutropenia seemed to cycle in 3-4 weeks periods and she would have periods of complete recovery. ELANE mutation analysis was considered however the patient has been asymptomatic and hasnever had recurrent or severe infections, so she has been monitored off treatment. Her ANC has never been below 500 Interval History: Caroline Allred is a 37 y.o. female who comes in today for routine follow up. She feels well todayand has no concerns. She had a CBC with diff at [facility] in October which showed normal WBC and ANC. She denies any infections or fevers. She denies any chest pain, shortness of breath, abdominal pain, weight loss. 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 She also has a component of fibromyalgia. Review of Systems Constitutional: Positive for fatigue. Negative for appetite change, chills, diaphoresis, fever and unexpected weight change. HENT: Negative for dental problem, mouth sores, nosebleeds, sneezing, sore throat, tinnitus, trouble swallowing and voice change. Eyes: Negative for photophobia, pain and visual disturbance. Respiratory: Negative for cough, shortness of breath and wheezing. Cardiovascular: Negative for chest pain, palpitations and leg swelling. Gastrointestinal: Negative for abdominal distention, abdominal pain, blood in stool, constipation, diarrhea, nausea and vomiting. Endocrine: Negative for cold intolerance and heat intolerance. Genitourinary: Negative for difficulty urinating, frequency, hematuria and urgency. Musculoskeletal: Positive for arthralgias. Negative for back pain, gait problem and myalgias. Skin: Negative for pallor and rash. Allergic/Immunologic: Negative for immunocompromised state. Neurological: Negative for dizziness, syncope, weakness, light-headedness, numbness and headaches. Hematological: Negative for adenopathy. Does not bruise/bleed easily. Psychiatric/Behavioral: Negative for confusion and sleep disturbance. The patient is not nervous/anxious. All other systems reviewed and are negative. 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 Social History Tobacco Use Smoking status: Never Smokeless tobacco: Never Substance Use Topics Alcohol use: Yes Comment: socially No Known Allergies Current Outpatient Medications Medication Sig Dispense Refill docusate sodium (Colace) 50 MG capsule Take by mouth 2 times daily. Glucosamine-Chondroitin 250-200 MG capsule Take 1 tablet by mouth 3 times daily. hydroxychloroquine (Plaquenil) 200 MG tablet Take by mouth. loratadine (Claritin) 10 MG tablet Take by mouth. norethindrone ac-eth estradio (Sahnnon 1.530) 1.5-30 MG-MCG tablet tablet 1 tablet daily. omeprazole (PriLOSEC) [address] capsule Take 20 mg by mouth every morning (before breakfast). Do notcrush or chew. No current facility-administered medications for this visit. Blood pressure 116/77, pulse 64, temperature 98.6 F (37 C), weight 116 lb 9.6 oz (52.9 kg), SpO2 100 %. ECO Physical Exam Vitals and nursing note reviewed. Constitutional: General: She is not in acute distress. Appearance: Normal appearance. She is not ill-appearing. HENT: Head: Normocephalic and atraumatic. Nose: Nose normal. Mouth/Throat: Pharynx: Oropharynx is clear. No oropharyngeal exudate or posterior oropharyngeal erythema. Eyes: General: No scleral icterus. Extraocular Movements: Extraocular movements intact. Conjunctiva/sclera: Conjunctivae normal. Pupils: Pupils are equal, round, and reactive to light. Cardiovascular: Rate and Rhythm: Normal rate and regular rhythm. Heart sounds: Normal heart sounds. No murmur heard. Pulmonary: Effort: Pulmonary effort is normal. No respiratory distress. Breath sounds: Normal breath sounds. No wheezing. Abdominal: General: Abdomen is flat. Bowel sounds are normal. There is no distension. Palpations: Abdomen is soft. There is no mass. Tenderness: There is no abdominal tenderness. There is no guarding. Musculoskeletal: General: No swelling or tenderness. Normal range of motion. Cervical back: Normal range of motion and neck supple. Right lower leg: No edema. Left lower leg: No edema. Lymphadenopathy: Cervical: No cervical adenopathy. Skin: General: Skin is warm and dry. Findings: No bruising or rash. Neurological: General: No focal deficit present. Mental Status: She is alert and oriented to person, place, and time. Mental status is at baseline. Psychiatric: Mood and Affect: Mood normal. Thought Content: Thought content normal. No visits with results within 1 Month(s) from this visit. Latest known visit with results is: Transcribe Orders on 07/04/2022 Component Date Value Ref Range Status Auto WBC 07/04/2022 3.9 3.6 - 10.7 10*3/uL Final RBC 07/04/2022 4.38 3.8 - 5.20 10*6/uL Final Hemoglobin 07/04/2022 14.1 11.7 - 16.0 g/dL Final Hematocrit 07/04/2022 37.9 35.0 - 47.0 % Final MCV 07/04/2022 86.5 80.0 - 98.0 fL Final MCH 07/04/2022 32.2 26.0 - 34.0 pg Final MCHC 07/04/2022 37.2 (H) 32.0 - 36.0 % Final RDW 07/04/2022 12.2 11.5 - 14.5 % Final Platelets 07/04/2022 200 140 - 440 10*3/uL Final MPV 07/04/2022 10.7 7.4 - 12.4 fL Final MPV is a calculated measurement using platelet volume ratio Neutrophils Relative 07/04/2022 55.2 40.0 - 80.0 % Final Lymphocytes Relative 07/04/2022 35.8 20.0 - 40.0 % Final Monocytes Relative 07/04/2022 4.9 2.0 - 10.0 % Final Eosinophils Relative 07/04/2022 2.8 1.0 - 6.0 % Final Basophils Relative 07/04/2022 1.3 0.0 - 2.0 % Final Immature Grans % 07/04/2022 0.0 <=0.0 % Final Neutrophils Absolute 07/04/2022 2.2 1.8 - 7.0 10*3/uL Final Lymphocytes Absolute 07/04/2022 1.4 1.0 - 4.3 10*3/uL Final Monocytes Absolute 07/04/2022 0.2 0.0 - 0.8 10*3/uL Final Eosinophils Absolute 07/04/2022 0.1 0.0 - 0.5 10*3/uL Final Basophils Absolute 07/04/2022 0.1 0.0 - 0.2 10*3/uL Final Immature Grans Absolute 07/04/2022 0.0 <=0.0 10*3/uL Final Imaging Results: none - I have reviewed all pertinent laboratory, imaging, and pathology results with the patient and/or family members present. Assessment/Plan: Diagnosis Plan 1. 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 Other extensive evaluation for neutropenia has been unremarkable although she has not had a bone marrow biopsy. She has a positive DEVIN and an underlying autoimmune disorder is suspected, buthas not been officially diagnosed. She has arthritis and is on Plaquenil. She follows with rheumatology at [facility] regularly. She is asymptomatic in regards to the neutropenia and has no history of recurrent or severe infections. - Will continue to monitor CBC every 6-12 months - Patient instructed to monitor for fevers or infections and call with any concerns - consider ELANE mutational testing in the future for diagnosis of cyclic neutropenia. The goal of treatment for cyclic neutropenia is to maintain the ANC >500 and her ANC has always been >500. All questions were answered to the satisfaction of the patient and/or family. Return to office in 12 months or sooner if worrisome signs/symptoms arise. Ino Martinez DO Hematology/Medical Oncology documented in this [facility]01-31-2023 Telephone encounter Note* Telephone Encounter - Ana Melendrez - 06/03/2022 10:18 AM EST Left message to call back; provider [id number] Miscellaneous Notes* Telephone Encounter - Ana Parvin - 06/03/2022 10:18 AM EST Left message to call back; provider out of office documented in this encounterSC[facility] [id number] Note* Addendum Note - JEFFREY Davis CRNA - 05/22/2022 2:52 PM EST Addendum created 05/22/221451 by JEFFREY Davis CRNA Intraprocedure Meds edited, Orders acknowledged in Narrator [facility] [id number] Miscellaneous Notes* Addendum Note - JEFFREY Davis CRNA - 05/22/2022 2:52 PM EST Addendum created 05/22/221451 by JEFFREY Davis CRNA Intraprocedure Meds edited, Orders acknowledged in Narrator * Anesthesia Discharge Note - Yobani Franco Jr., MD - 05/22/2022 2:34 PM EST Patient: Caroline Allred Procedure Summary Date: 05/22/22 Room / Location: [address] Operating Room Anesthesia Start: 1049 Anesthesia Stop: 1313 Procedure: RIGHT NIK THYROIDECTOMY (Right: Neck) 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]) Surgeons: Jaycee Zhang DO Responsible Provider: Yobani Franco Jr., MD Anesthesia Type: general anesthesia ASA Status: 2 Anesthesia Type: general anesthesia Vitals Value Taken Time BP 122/79 05/22/22 1335 Temp 36.7 C (98 F) 05/22/22 1309 Pulse 82 05/22/22 1335 Resp 16 05/22/22 1335 SpO2 100 % 05/22/22 1335 Anesthesia Post Evaluation Patient location during evaluation: PACU Patient participation: complete - patient participated Level of consciousness: awake and alert Pain management: satisfactory to patient Airway patency: patent Dental Injury: no Cardiovascular status: acceptable, blood pressure returned to baseline and hemodynamically stable Respiratory status: acceptable and spontaneous ventilation Hydration status: euvolemic Nausea/Vomiting: controlled No notable events documented. Patient can be discharged once all PACU criteria has been met. documented in this 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]) Surgeons: Jaycee Zhang DO Responsible Provider: Yobani Franco Jr., MD Anesthesia Type: general anesthesia ASA Status: 2 Anesthesia Type: general anesthesia Vitals Value Taken Time BP 122/79 05/22/22 1335 Temp 36.7 C (98 F) 05/22/22 1309 Pulse 82 05/22/22 1335 Resp 16 05/22/22 1335 SpO2 100 % 05/22/22 1335 Anesthesia Post Evaluation Patient location during evaluation: PACU Patient participation: complete - patient participated Level of consciousness: awake and alert Pain management: satisfactory to patient Airway patency: patent Dental Injury: no Cardiovascular status: acceptable, blood pressure returned to baseline and hemodynamically stable Respiratory status: acceptable and spontaneous ventilation Hydration status: euvolemic Nausea/Vomiting: controlled No notable events documented. Patient can be discharged once all PACU criteria has been met. [facility] [id number] Note* Perioperative Nursing Note - Evelyn Hwang RN - 05/22/2022 2:32 PM EST Pt and family verbalized understanding of recovery instructions, pt verbalized a readiness to be discharged home. Pt discharged home via wheelchair accompanied by RN/volunteer. Pt has had all their belongings returned to them at discharge [facility] [id number] Note* Perioperative Nursing Note - Evelyn Hwang RN - 05/22/2022 2:32 PM EST Pt and family verbalized understanding of recovery instructions, pt verbalized a readiness to be discharged home. Pt discharged home via wheelchair accompanied by RN/volunteer. Pt has had all their belongings returned to them at discharge [facility] [id number] Miscellaneous Notes* Perioperative Nursing Note - Evelyn Hwang RN - 05/22/2022 2:32 PM EST Pt and family verbalized understanding of recovery instructions, pt verbalized a readiness to be discharged home. Pt discharged home via wheelchair accompanied by RN/volunteer. Pt has had all their belongings returned to them at discharge * Perioperative Nursing Note - Evelyn Hwang RN - 05/22/2022 2:14 PM EST Pt and family verbalized understanding of recovery instructions, pt verbalized a readiness to be discharged home. Pt discharged home via wheelchair accompanied by RN/volunteer. Pt has had all their belongings returned to them at discharge * Perioperative Nursing Note - Evelyn Hwang RN - 05/22/2022 1:40 PM EST Pt states nausea is improving and throat discomfort is tolerable, pt is tolerating sips of cola, pthusband is at bedside, her VS stable, will continue to monitor * Perioperative Nursing Note - Evelyn Hwang RN - 05/22/2022 1:09 PM EST Pt received from OR via cart, spont. Resp. With SOFTBALL UMPIRE in attendance. Placed on monitor. 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 2 relatively small nodules left thyroid lobe which do not meet criteria for FNA biopsy. No gross cervical lymphadenopathy. Trachea is shifted to the patient's left side likely due to the right thyroid lobe mass-effect DESCRIPTION OF PROCEDURE: The patient was intubated with a [employer]tr[employer] endotracheal tube which had electrodes within its lumen. The electrodes were connected to channel 1 and channel 2 of the nerve integrity monitor pod. In addition, grounding and stimulating electrodes were placed over the sternal area and connected to their respective ports of the nerve integrity monitor pod. Proper placement andpositioning of each electrode was confirmed. The stimulator was placed at a setting of 1 mA. A support was placed beneath the shoulders for extension in the cervical region. The anterior neck was cleansed with alcohol. A planned incision line was demarcated over the suprasternal area with its long a xis running within the relaxed skin tension line. Note that this ran in the standard incision line,that being approximately 2 fingerbreadths superior to the sternal notch but inferior to the cricoidcartilage. This was locally infiltrated using 1% lidocaine with 1: 100,000 epinephrine. Adequate time was allowed for vasoconstriction. During this time the neck was prepped with a Betadine solution and the patient draped in the usual sterile fashion. A #15 scalpel blade was taken. The horizontal incision was carried through the skin and into the subcutaneous tissues. Hemostasis was assured with the electrocautery unit. The platysma muscle was then incised using electrocautery. At this point, the plane was then oriented in a vertical direction. The midline plane was divided vertically along its length. The cervical strap muscles were identified including the sternohyoid and sternothyroid muscles. These were elevated and reflected laterally to expose the thyroid lobe. The thyroid lobe was then identified and isolated. Dissection began in the inferior thyroid triangle. From this point going forward, dissection followed a very predictable and reproducible fashion. Specifically, the tissues were bluntly dissected using a curved hemostat. The tissue was then stimulated with the nerve stimulator. Once there is confirmation that there is no nerve involvement with use of the stimulator and direct visualization, the intervening soft tissue was then divided using either bipolar cautery orthe harmonic scalpel. This repetitive process was done throughout the entirety of the dissection. The inferior pole vessels were individually isolated and divided. Dissection was then carried laterally to incorporate the middle thyroid vein. Dissection continued laterally and superiorly as the superior pole vessels were identified, dissected, and divided. The thyroid lobe was then elevated. Bluntdissection was performed along with the posterior aspect. The superior and inferior parathyroid glands were identified and each were bluntly dissected from the posterior aspect of the thyroid lobe leaving their vascular pedicle intact. At this point the thyroid lobe remained intact via the suspensory ligament. The suspensory ligament was also dissected. A hemostat was passed deep to the thyroid isthmus within the pretracheal fascia. The thyroid isthmus was divided using the harmonic scalpel. The thyroid lobe and isthmus were then completely circumscribed and removed for pathology. The wound was thoroughly irrigated using normal saline irrigation. Hemostasis was confirmed using bipolar cautery. An autologous platelet tissue graft was utilized. This was done by withdrawing 50 mL of the patient's blood preoperatively which was centrifuged. The platelet rich layer was decanted and mixed with calcium chloride and thrombin and sprayed within the wound. The wound was closed in a layered fashion. The cervical strap muscles were reapproximated with inverted mattress sutures of 4-0 chromic. The platysma muscle was reapproximated with multiple inverted mattress sutures of 4-0 chromic as was the subcutaneous layer. The skin skin edges were reapproximated with a running subcuticular suture of 5-0 Monocryl. The skin was cleansed and dried followed by application of an adhesive and Steri-Strips. The patient tolerated the thyroid lobectomy well without incident. documented [facility] this [facility]01-19-2023 Note* Perioperative Nursing Note - Evelyn Hwang RN - 05/22/2022 2:14 PM EST Pt and family verbalized understanding of recovery instructions, pt verbalized a readiness to be discharged home. Pt discharged home via wheelchair accompanied by RN/volunteer. Pt has had all their belongings returned to them at discharge [facility] [id number] Note* Perioperative Nursing Note - Evelyn Hwang RN - 05/22/2022 2:14 PM EST Pt and family verbalized understanding of recovery instructions, pt verbalized a readiness to be discharged home. Pt discharged home via wheelchair accompanied by RN/volunteer. Pt has had all their belongings returned to them at discharge [facility] [id number] Note* Perioperative Nursing Note - Evelyn Hwang RN - 05/22/2022 1:40 PM EST Pt states nausea is improving and throat discomfort is tolerable, pt is tolerating sips of cola, pthusband is at bedside, her VS stable, will continue to monitor [id number] Note* Perioperative Nursing Note - Evelyn Hwang RN - 05/22/2022 1:40 PM EST Pt states nausea is improving and throat discomfort is tolerable, pt is tolerating sips of cola, pthusband is at bedside, her VS stable, will continue to monitor [id number] Anesthesiology Postoperative evaluation and management note* Anesthesia Postprocedure Evaluation - Tomityrel Dumas APRN - SOFTBALL UMPIRE - 05/22/2022 1:13 PM EST Patient: Caroline Allred Procedure Summary Date: 05/22/22 Room / Location: [address] Operating Room Anesthesia Start: 1049 Anesthesia Stop: 1313 Procedure: RIGHT NIK THYROIDECTOMY (Right: Neck) 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 MIPS #430 PONV Patient received an inhalational anesthetic (4554F) Patient exhibits three or more risk factors for PONV (4556F) Patient received at leaset 2 prophylactic Rx PONV anti-emtic agents of different classes preop and/or intraop (G9775) MIPS # 424 Perioperative Temperature Management Anesthesia time was 60 minutes or longer (4255F) Anesthesai administered was General (inhalational or TIVA) or Neuraxial block (X0424) At least one body temperature greater than 95.8F/35.5C achieved within the 30 mins immediately prior to or the 15 minutes immediately following anesthesia end time (G9771) MIPS #477 Multimodal Pain Management Not emergent case Patientw was administered multimodal pain management (two or more drugs and/or interventions excluding systemic opioids) in the periopeartive period occurring at some time between 6 hours prior to anesthesia start time until discharged from PACU (G2148) MIPS #404 Anesthesiology Smoking Abstinence The patient is not a current smoker (e.g. cigarette, cigar, pipe, e-cigarette/vaping/marijuana) I completed my handoff to the receiving clinician during which we: 1. Identified the patient 2. Identified the responsible provider 3. Reviewed the pertinent medical history 4. Discussed the surgical course 5. Reviewed intra-op anesthesia management and issues during anesthesia 6. Set expectations for post-procedure period 7. Allowed opportunity for questions and acknowledgement of understanding. 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 MIPS #430 PONV Patient received an inhalational anesthetic (4554F) Patient exhibits three or more risk factors for PONV (4556F) Patient received at leaset 2 prophylactic Rx PONV anti-emtic agents of different classes preop and/or intraop (G9775) MIPS # 424 Perioperative Temperature Management Anesthesia time was 60 minutes or longer (4255F) Anesthesai administered was General (inhalational or TIVA) or Neuraxial block (X0424) At least one body temperature greater than 95.8F/35.5C achieved within the 30 mins immediately prior to or the 15 minutes immediately following anesthesia end time (G9771) MIPS #477 Multimodal Pain Management Not emergent case Patientw was administered multimodal pain management (two or more drugs and/or interventions excluding systemic opioids) in the periopeartive period occurring at some time between 6 hours prior to anesthesia start time until discharged from PACU (G2148) [facility] #404 Anesthesiology Smoking Abstinence The patient is not a current smoker (e.g. cigarette, cigar, pipe, e-cigarette/vaping/marijuana) I completed my handoff to the receiving clinician during which we: 1. Identified the patient 2. Identified the responsible provider 3. Reviewed the pertinent medical history 4. Discussed the surgical course 5. Reviewed intra-op anesthesia management and issues during anesthesia 6. Set expectations for post-procedure period 7. Allowed opportunity for questions and acknowledgement of understanding. * Anesthesia Procedure Notes - JEFFREY Davis CRNA - 05/22/2022 11:16 AM ESTAssociated Order(s): Airway Airway Date/Time: 05/22/2022 11:06 AM Urgency: scheduled Airway not difficult General Information and Staff Patient location during procedure: Procedural Anesthesiologist: Yobani Franco Jr., MD Resident/SOFTBALL UMPIRE: JEFFREY Davis CRNA Performed: SOFTBALL UMPIRE Indications and Patient Condition Indications for airway management: anesthesia Sedation level: Asleep Preoxygenated: yes Patient position: sniffing MILS maintained throughout Mask difficulty assessment: 1 - vent by mask Final Airway Details Final airway type: endotracheal airway Successful airway: NIM tube Cuffed: yes Successful intubation technique: video laryngoscopy Blade: Sherice Blade size: #3 ETT size (mm): 7.0 Cormack-Lehane Classification: grade I - full view of glottis Placement verified by: chest auscultation and capnometry Measured from: lips ETT to lips (cm): 22 Number of attempts at approach: 1 * Anesthesia Preprocedure Evaluation - Yobani Franco Jr., MD - 05/22/2022 10:15 AM EST Images from the original note were not included. Patient: Caroline Allred Procedure Information Date/Time: 05/22/22 1030 Procedure: RIGHT NIK THYROIDECTOMY (Right: Neck) Location: [address] Operating Room Surgeons: Jaycee Zhang, Relevant Problems GI (+) Irritable bowel syndrome Past Medical History: Past Medical History: No date: Arthritis No date: Blood transfusion affecting No date: Disease of thyroid gland No date: IBS (irritable bowel syndrome) No date: Motion sickness No date: Neutropenia, cyclic (CMS/HCC) (HCC) No date: Orthostatic hypotension No date: PONV (postoperative nausea and vomiting) Past Surgical History: Past Surgical History: No date: CHOLECYSTECTOMY No date: HERNIA REPAIR No date: KNEE SURGERY Comment: plica No date: PELVIC LAPAROSCOPY Comment: to remove endometriosis No date: TOE SURGERY Social History: TOBACCO: reports that she has never smoked. She has never used smokeless tobacco. ETOH: reports current alcohol use. Social History Substance and Sexual Activity Drug Use Never Family History: No family history on file. Screening: unknown Clinical information reviewed: Tobacco Allergies Meds Med Hx Surg Hx OB Status Fam Hx Soc Hx Physical Exam Airway Mallampati: II TM distance: >3 FB Neck ROM: full Mouth Open: normal Cardiovascular Dental Pulmonary Abdominal Other findings: Denies loose teeth GERD controlled PONV: High Risk Total Score: 4 Female patient Non-smoker History of PONV History of motion sickness Anesthesia Plan ASA 2 general anesthesia The patient is not a current smoker. Patient was not previously instructed to abstain from smoking on day of procedure. Patient did not smoke on day of procedure. Anesthetic plan and risks discussed with patient. patient is NPO ERAS Meds Tylenol Pepcid Emend RENATE Screening Labs: Lab Results Component Value Date WBC 5.4 07/03/2020 HGB 12.5 07/03/2020 MCV 90.4 07/03/2020 Lab Results Component Value Date NA 142 07/03/2020 K 4.4 07/03/2020 CL 108 (H) 07/03/2020 CO2 25 07/03/2020 BUN 11 07/03/2020 CREATININE 0.74 07/03/2020 GLUCOSE 103 (H) 07/03/2020 CALCIUM 9.6 07/03/2020 PROT 7.3 07/03/2020 ALKPHOS 42 07/03/2020 AST 24 07/03/2020 Pain Score: 0 - No pain No echocardiogram results found for the past 14 days No results found for this or any previous visit. [facility]01-19-20[facility] Note* Perioperative Nursing Note - Evelyn Hwang RN - 05/22/2022 1:09 PM EST Pt received from OR via cart, spont. Resp. With SOFTBALL UMPIRE in attendance. Placed on monitor. Monitor alarms on in PACU [facility] [id number] Note* Perioperative Nursing Note - Evelyn Hwang RN - 05/22/2022 1:09 PM EST Pt received from OR via cart, spont. Resp. With SOFTBALL UMPIRE in attendance. Placed on monitor. Monitor alarms on in PACU [facility] [id number] Procedure anesthesia Narrative* Procedure Summary Procedure Name Responsible Anesthesiologist Anesthesia Start Time Anesthesia Stop Time RIGHT NIK THYROIDECTOMY (Right: Neck) Yobani Franco Jr., MD 05/22/22 1049 05/22/22 1313 Events Date Time Event Comment 05/22/2022 1019 1049 An Start 1049 An Start Data 1050 In Room 1054 An Induction The patient was reevaluated immediately before moderate or deep sedation use and before anesthesia induction. 1056 An Intubation 1058 Anesthesia Ready 1100 Harshil REMIFENTANIL GT T 1MG/20CC NS VIA ALARIS AT 0.05 MCG/KG/MIN 1118 Harshil LOCAL INJECTED PER SURGEON 1123 Proc Start 1228 Harshil RANJIT AT 0.075 1235 Harshil RANJIT AT 0.1 1246 Harshil RANJIT 0.05 1258 Harshil Ranjit off 1301 Proc Fin 1304 An Extubation - Spontaneous ventilation - Patient suctioned - Airway removed without difficulty - Spontaneous ventilation maintained 1304 an stop data 1307 Out of Room 1313 An Stop 1314 Harshil TOTAL RANJIT 600U G Meds Name Total midazolam 1 mg/mL 2 mg lidocaine 20 mg/mL 80 mg propofol 10 mg/mL 200 mg rocuronium 30 mg dexamethasone 10 mg/mL 10 mg esmolol (Brevibloc) injection 30 mg remifentanil (Ultiva) injection 600 mcg phenylephrine syringe 1 mg/ 10 mL syring e (IV Push for HYPOTENSION) 200 mcg glycopyrrolate (Robinul) injection 0.2 m g ketorolac 15 mg/mL 15 mg metoclopramide (Reglan) injection 5 mg ondansetron 2 mg/mL 4 mg ePHEDrine injection 5 mg * Agents Name O2 Air Desflurane Inspired Desflurane * Blood No blood administrations on file. Lines, Drains, and Airways Type Details Placement Removal Wound/Incision Incision; Neck; Anterior 05/22/22 1245 by Peripheral IV Placement Date: 05/22/22; Placement Time: 1009; Catheter Size: 20 G; Orientation: Left; Location: Antecubital; Site Prep: Alcohol; Local Anesth: None; Inserted by: TM; Insertion Attempts: 1 (two previous attempts from [facility]); Difficult Venous Access? Yes; Patient Tolerance: Tolerated well; Removal Date: 05/22/22; Removal Time: 1414 05/22/22 1009 by Cathleen Buchanan RN 05/22/22 1414 by Evelyn Hwang RN ETT Placement Date: 05/22/22; Placement Time: 1106 (created via procedure documentation); Mask Ventilation: 1; Technique: Video laryngoscopy; Type: NIM tube; Single Lumen Tube Size: 7 mm; Cuffed: Yes; Laryngoscope: Sherice; Blade Size: 3; Grade View: Grade I; Insertion Attempts: 1; Placement Verification: Auscultation, Capnometry; Removal Date: 05/22/22; Removal Time: 1304 05/22/22 1106 by JEFFREY Davis CRNA 05/22/22 1304 by JEFFREY Davis CRNA documented in this encounter [facility] [id number] Anesthesiology procedure note* Anesthesia Procedure Notes - JEFFREY Davis CRNA - 05/22/2022 11:16 AM ESTAssociated Order(s): Airway Airway Date/Time: 05/22/2022 11:06 AM Urgency: scheduled Airway not difficult General Information and Staff Patient location during procedure: Procedural Anesthesiologist: Yobani Franco Jr., MD Resident/SOFTBALL UMPIRE: JEFFREY Davis CRNA Performed: SOFTBALL UMPIRE Indications and Patient Condition Indications for airway management: anesthesia Sedation level: Asleep Preoxygenated: yes Patient position: sniffing MILS maintained throughout Mask difficulty assessment: 1 - vent by mask Final Airway Details Final airway type: endotracheal airway Successful airway: NIM tube Cuffed: yes Successful intubation technique: video laryngoscopy Blade: Sherice Blade size: #3 ETT size (mm): 7.0 Cormack-Lehane Classification: grade I - full view of glottis Placement verified by: chest auscultation and capnometry Measured from: lips ETT to lips (cm): 22 Number of attempts at approach: 1 [facility] [id number] Note* Op Note - Jaycee Zhang DO - 05/22/2022 10:50 AM EST OPERATIVE NOTE Patient Name: Caroline Allred DATE OF PROCEDURE: 05/22/2022 SURGEON: Jaycee Zhang DO PREOPERATIVE DIAGNOSES: Pre-op Diagnosis * 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 2 relatively small nodules left thyroid lobe which do not meet criteria for FNA biopsy. No gross cervical lymphadenopathy. Trachea is shifted to the patient's left side likely due to the right thyroid lobe mass-effect DESCRIPTION OF PROCEDURE: The patient was intubated with a Predikttronic endotracheal tube which had electrodes within its lumen. The electrodes were connected to channel 1 and channel 2 of the nerve integrity monitor pod. In addition, grounding and stimulating electrodes were placed over the sternal area and connected to their respective ports of the nerve integrity monitor pod. Proper placement andpositioning of each electrode was confirmed. The stimulator was placed at a setting of 1 mA. A support was placed beneath the shoulders for extension in the cervical region. The anterior neck was cleansed with alcohol. A planned incision line was demarcated over the suprasternal area with its long a xis running within the relaxed skin tension line. Note that this ran in the standard incision line,that being approximately 2 fingerbreadths superior to the sternal notch but inferior to the cricoidcartilage. This was locally infiltrated using 1% lidocaine with 1: 100,000 epinephrine. Adequate time was allowed for vasoconstriction. During this time the neck was prepped with a Betadine solution and the patient draped in the usual sterile fashion. A #15 scalpel blade was taken. The horizontal incision was carried through the skin and into the subcutaneous tissues. Hemostasis was assured with the electrocautery unit. The platysma muscle was then incised using electrocautery. At this point, the plane was then oriented in a vertical direction. The midline plane was divided vertically along its length. The cervical strap muscles were identified including the sternohyoid and sternothyroid muscles. These were elevated and reflected laterally to expose the thyroid lobe. The thyroid lobe was then identified and isolated. Dissection began in the inferior thyroid triangle. From this point going forward, dissection followed a very predictable and reproducible fashion. Specifically, the tissues were bluntly dissected using a curved hemostat. The tissue was then stimulated with the nerve stimulator. Once there is confirmation that there is no nerve involvement with use of the stimulator and direct visualization, the intervening soft tissue was then divided using either bipolar cautery orthe harmonic scalpel. This repetitive process was done throughout the entirety of the dissection. The inferior pole vessels were individually isolated and divided. Dissection was then carried laterally to incorporate the middle thyroid vein. Dissection continued laterally and superiorly as the superior pole vessels were identified, dissected, and divided. The thyroid lobe was then elevated. Bluntdissection was performed along with the posterior aspect. The superior and inferior parathyroid glands were identified and each were bluntly dissected from the posterior aspect of the thyroid lobe leaving their vascular pedicle intact. At this point the thyroid lobe remained intact via the suspensory ligament. The suspensory ligament was also dissected. A hemostat was passed deep to the thyroid isthmus within the pretracheal fascia. The thyroid isthmus was divided using the harmonic scalpel. The thyroid lobe and isthmus were then completely circumscribed and removed for pathology. The wound was thoroughly irrigated using normal saline irrigation. Hemostasis was confirmed using bipolar cautery. An autologous platelet tissue graft was utilized. This was done by withdrawing 50 mL of the patient's blood preoperatively which was centrifuged. The platelet rich layer was decanted and mixed with calcium chloride and thrombin and sprayed within the wound. The wound was closed in a layered fashion. The cervical strap muscles were reapproximated with inverted mattress sutures of 4-0 chromic. The platysma muscle was reapproximated with multiple inverted mattress sutures of 4-0 chromic as was the subcutaneous layer. The skin skin edges were reapproximated with a running subcuticular suture of 5-0 Monocryl. The skin was cleansed and dried followed by application of an adhesive and Steri-Strips. The patient tolerated the thyroid lobectomy well without incident. 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 2 relatively small nodules left thyroid lobe which do not meet criteria for FNA biopsy. No gross cervical lymphadenopathy. Trachea is shifted to the patient's left side likely due to the right thyroid lobe mass-effect DESCRIPTION OF PROCEDURE: The patient was intubated with a Ed4U endotracheal tube which had electrodes within its lumen. The electrodes were connected to channel 1 and channel 2 of the nerve integrity monitor pod. In addition, grounding and stimulating electrodes were placed over the sternal area and connected to their respective ports of the nerve integrity monitor pod. Proper placement andpositioning of each electrode was confirmed. The stimulator was placed at a setting of 1 mA. A support was placed beneath the shoulders for extension in the cervical region. The anterior neck was cleansed with alcohol. A planned incision line was demarcated over the suprasternal area with its long a xis running within the relaxed skin tension line. Note that this ran in the standard incision line,that being approximately 2 fingerbreadths superior to the sternal notch but inferior to the cricoidcartilage. This was locally infiltrated using 1% lidocaine with 1: 100,000 epinephrine. Adequate time was allowed for vasoconstriction. During this time the neck was prepped with a Betadine solution and the patient draped in the usual sterile fashion. A #15 scalpel blade was taken. The horizontal incision was carried through the skin and into the subcutaneous tissues. Hemostasis was assured with the electrocautery unit. The platysma muscle was then incised using electrocautery. At this point, the plane was then oriented in a vertical direction. The midline plane was divided vertically along its length. The cervical strap muscles were identified including the sternohyoid and sternothyroid muscles. These were elevated and reflected laterally to expose the thyroid lobe. The thyroid lobe was then identified and isolated. Dissection began in the inferior thyroid triangle. From this point going forward, dissection followed a very predictable and reproducible fashion. Specifically, the tissues were bluntly dissected using a curved hemostat. The tissue was then stimulated with the nerve stimulator. Once there is confirmation that there is no nerve involvement with use of the stimulator and direct visualization, the intervening soft tissue was then divided using either bipolar cautery orthe harmonic scalpel. This repetitive process was done throughout the entirety of the dissection. The inferior pole vessels were individually isolated and divided. Dissection was then carried laterally to incorporate the middle thyroid vein. Dissection continued laterally and superiorly as the superior pole vessels were identified, dissected, and divided. The thyroid lobe was then elevated. Bluntdissection was performed along with the posterior aspect. The superior and inferior parathyroid glands were identified and each were bluntly dissected from the posterior aspect of the thyroid lobe leaving their vascular pedicle intact. At this point the thyroid lobe remained intact via the suspensory ligament. The suspensory ligament was also dissected. A hemostat was passed deep to the thyroid isthmus within the pretracheal fascia. The thyroid isthmus was divided using the harmonic scalpel. The thyroid lobe and isthmus were then completely circumscribed and removed for pathology. The wound was thoroughly irrigated using normal saline irrigation. Hemostasis was confirmed using bipolar cautery. An autologous platelet tissue graft was utilized. This was done by withdrawing 50 mL of the patient's blood preoperatively which was centrifuged. The platelet rich layer was decanted and mixed with calcium chloride and thrombin and sprayed within the wound. The wound was closed in a layered fashion. The cervical strap muscles were reapproximated with inverted mattress sutures of 4-0 chromic. The platysma muscle was reapproximated with multiple inverted mattress sutures of 4-0 chromic as was the subcutaneous layer. The skin skin edges were reapproximated with a running subcuticular suture of 5-0 Monocryl. The skin was cleansed and dried followed by application of an adhesive and Steri-Strips. The patient tolerated the thyroid lobectomy well without incident. [facility] [id number] Hospital Discharge instructions* Discharge Instructions* Jaycee Zhang DO - 05/22/2022 10:18 AM EST [facility] Instructions Dr. Jaycee Zhang 1. Keep the area clean and dry. 2. Avoid any heavy lifting, straining, or exertion. This will prevent bleeding. 3. A cold compress may be applied to the area to minimize swelling and bruising. 4. Maintain the steri-strip dressing. 5. If the steri-strips fall off prematurely, then you should begin routine wound care until your first follow-up appointment: A. Clean the area twice daily using warm soap water and then gently pat dry. Do not use peroxide for cleaning. B. Liberally apply Bacitracin Ointment directly to the area to protect it from drying and crusting. C. You do not need to keep a dressing or bandage over the area unless there is potential for dirt or debris contacting it. D. You may shower or bathe directly over the area. 6. Resume all routine home medications unless instructed otherwise. If you have any further questions or concerns regarding comfort or care, please contact our office at any time. 1. If the surgical area develops any pain, redness, bleeding, or drainage 2. If you have any problems, questions, or concerns. OFFICE: [phone] IF YOU HAVE AN EMERGENCY, AND ARE UNABLE TO REACH THE DOCTOR AT THE ABOVE NUMBER, CALL OR GO TO [facility] AT [facility] EMERGENCY ROOM: [phone] Electronically signed by @[email or web address]@ on @TDNR@ at @NOWNR@ * Attachments The following attachments cannot be sent through Care Everywhere. * General Anesthesia Discharge Instructions ([place]) documented in this [facility]01-19-2023 Attending History and physical note* Jaycee Zhang DO - 05/22/2022 10:17 AM EST H&P reviewed. The patient was examined and there are no changes to the H&P. Source Note - Yobani Franco Jr., MD - 05/22/2022 10:10 AM EST [facility] PreSurgical History and Physical Name: Caroline Allred : 1985 (Age-36 y.o.) Date of evaluation: 05/22/2022 Surgeon: Jaycee Zhang DO No Known Allergies Height: 161.3 cm (5' 3.5) Weight: 50.8 kg (112 lb) BMI (Calculated): 19.53 Chief Complaint: 36 y.o. female for Procedure(s): RIGHT NIK THYROIDECTOMY . 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 Medications: Prior to Admission medications Medication Sig Start Date End Date Taking? Authorizing Provider docusate sodium (Colace) 50 MG capsule Take by mouth 2 times daily. Yes Historical Provider, Glucosamine-Chondroitin 250-200 MG capsule Take 1 tablet by mouth 3 times daily. Yes Historical Provider, hydroxychloroquine (Plaquenil) 200 MG tablet Take by mouth. Yes Historical Provider, ibuprofen 200 MG tablet Take by mouth. Yes Historical Provider, loratadine (Claritin) 10 MG tablet Take by mouth. Yes Historical Provider, norethindrone ac-eth estradio (Shannon ) 1.5-30 MG-MCG tablet tablet 1 tablet daily. Yes Historical Provider, omeprazole (PriLOSEC) [address] capsule Take 20 mg by mouth every morning (before breakfast). Do notcrush or chew. Yes Historical Provider, Social history and Laboratory Data: Lab Results Component Value Date HGB 12.5 07/03/2020 WBC 5.4 07/03/2020 NA 142 07/03/2020 K 4.4 07/03/2020 BUN 11 07/03/2020 CREATININE 0.74 07/03/2020 GLUCOSE 103 (H) 07/03/2020 Social History Tobacco Use Smoking Status Never Smokeless Tobacco Never Social History Substance and Sexual Activity Alcohol Use Yes Comment: socially Social History Substance and Sexual Activity Drug Use Never Physical Examination: Constitutional: No apparent distress, well nourished, and in stable condition. Cardiac: Regular rate and rhythm Abdomen: Soft and nonacute Pulmonary: Clear bilaterally and no wheezing Neuro: Moves extremities X4 with no tremors HEENT: No gross cranial nerve defects and anicteric sclera Skin: Skin warm and dry with no visible rashes Vascular: Adequate perfusion of extremities with no cyanosis Psych: Alert and oriented x3 with appropriate affect Lymphatics: No swelling of arms/hands with no pedal edema Neck: FROM with no JVD Additional Notes:None After review of the medical history and physical assessment, medications, allergies, patient's current medical condition, and labs, this patient is at an optimal medical condition for the procedure and anesthetic at this outpatient surgical facility. Electronically signed by: Yobani Franco Jr, MD, MD Date: 05/22/2022 at 10:10 AM [facility] [employer] Work Phone: [phone] 946-169701-19-2023 History and physical note* Jaycee Zhang DO - 05/22/2022 10:17 AM EST H&P reviewed. The patient was examined and there are no changes to the H&P. Source Note - Yobani Franco Jr., MD - 05/22/2022 10:10 AM EST [facility] PreSurgical History and Physical Name: Caroline Allred : 1985 (Age-36 y.o.) Date of evaluation: 05/22/2022 Surgeon: Jaycee Zhang DO No Known Allergies Height: 161.3 cm (5' 3.5) Weight: 50.8 kg (112 lb) BMI (Calculated): 19.53 Chief Complaint: 36 y.o. female for Procedure(s): RIGHT NIK THYROIDECTOMY . 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 Medications: Prior to Admission medications Medication Sig Start Date End Date Taking? Authorizing Provider docusate sodium (Colace) 50 MG capsule Take by mouth 2 times daily. Yes Historical Provider, Glucosamine-Chondroitin 250-200 MG capsule Take 1 tablet by mouth 3 times daily. Yes Historical Provider, hydroxychloroquine (Plaquenil) 200 MG tablet Take by mouth. Yes Historical Provider, ibuprofen 200 MG tablet Take by mouth. Yes Historical Provider, loratadine (Claritin) 10 MG tablet Take by mouth. Yes Historical Provider, norethindrone ac-eth estradio (Shannon ) 1.5-30 MG-MCG tablet tablet 1 tablet daily. Yes Historical Provider, omeprazole (PriLOSEC) [address] capsule Take 20 mg by mouth every morning (before breakfast). Do notcrush or chew. Yes Historical Provider, Social history and Laboratory Data: Lab Results Component Value Date HGB 12.5 07/03/2020 WBC 5.4 07/03/2020 NA 142 07/03/2020 K 4.4 07/03/2020 BUN 11 07/03/2020 CREATININE 0.74 07/03/2020 GLUCOSE 103 (H) 07/03/2020 Social History Tobacco Use Smoking Status Never Smokeless Tobacco Never Social History Substance and Sexual Activity Alcohol Use Yes Comment: socially Social History Substance and Sexual Activity Drug Use Never Physical Examination: Constitutional: No apparent distress, well nourished, and in stable condition. Cardiac: Regular rate and rhythm Abdomen: Soft and nonacute Pulmonary: Clear bilaterally and no wheezing Neuro: Moves extremities X4 with no tremors HEENT: No gross cranial nerve defects and anicteric sclera Skin: Skin warm and dry with no visible rashes Vascular: Adequate perfusion of extremities with no cyanosis Psych: Alert and oriented x3 with appropriate affect Lymphatics: No swelling of arms/hands with no pedal edema Neck: FROM with no JVD Additional Notes:None After review of the medical history and physical assessment, medications, allergies, patient's current medical condition, and labs, this patient is at an optimal medical condition for the procedure and anesthetic at this outpatient surgical facility. Electronically signed by: Yobani Franco Jr, MD, Date: 05/22/2022 at 10:10 AM * Yobani Franco Jr., MD - 05/22/2022 10:10 AM EST [facility] PreSurgical History and Physical Name: Caroline Allred : 1985 (Age-36 y.o.) Date of evaluation: 05/22/2022 Surgeon: Jaycee Zhang DO No Known Allergies Height: 161.3 cm (5' 3.5) Weight: 50.8 kg (112 lb) BMI (Calculated): 19.53 Chief Complaint: 36 y.o. female for Procedure(s): RIGHT NIK THYROIDECTOMY . 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 Medications: Prior to Admission medications Medication Sig Start Date End Date Taking? Authorizing Provider docusate sodium (Colace) 50 MG capsule Take by mouth 2 times daily. Yes Historical Provider, Glucosamine-Chondroitin 250-200 MG capsule Take 1 tablet by mouth 3 times daily. Yes Historical Provider, hydroxychloroquine (Plaquenil) 200 MG tablet Take by mouth. Yes Historical Provider, ibuprofen 200 MG tablet Take by mouth. Yes Historical Provider, loratadine (Claritin) 10 MG tablet Take by mouth. Yes Historical Provider, norethindrone ac-eth estradio (Shannon ) 1.5-30 MG-MCG tablet tablet 1 tablet daily. Yes Historical Provider, omeprazole (PriLOSEC) [address] capsule Take 20 mg by mouth every morning (before breakfast). Do notcrush or chew. Yes Historical Provider, Social history and Laboratory Data: Lab Results Component Value Date HGB 12.5 07/03/2020 WBC 5.4 07/03/2020 NA 142 07/03/2020 K 4.4 07/03/2020 BUN 11 07/03/2020 CREATININE 0.74 07/03/2020 GLUCOSE 103 (H) 07/03/2020 Social History Tobacco Use Smoking Status Never Smokeless Tobacco Never Social History Substance and Sexual Activity Alcohol Use Yes Comment: socially Social History Substance and Sexual Activity Drug Use Never Physical Examination: Constitutional: No apparent distress, well nourished, and in stable condition. Cardiac: Regular rate and rhythm Abdomen: Soft and nonacute Pulmonary: Clear bilaterally and no wheezing Neuro: Moves extremities X4 with no tremors HEENT: No gross cranial nerve defects and anicteric sclera Skin: Skin warm and dry with no visible rashes Vascular: Adequate perfusion of extremities with no cyanosis Psych: Alert and oriented x3 with appropriate affect Lymphatics: No swelling of arms/hands with no pedal edema Neck: FROM with no JVD Additional Notes:None After review of the medical history and physical assessment, medications, allergies, patient's current medical condition, and labs, this patient is at an optimal medical condition for the procedure and anesthetic at this outpatient surgical facility. Electronically signed by: Yobani Franco Jr, MD, MD Date: 05/22/2022 at 10:10 AM documented in this [facility]01-19-2023 Anesthesiology Preoperative evaluation and management note* Anesthesia Preprocedure Evaluation - Yobani Franco Jr., MD - 05/22/2022 10:15 AM EST Images from the original note were not included. Patient: Caroline Allred Procedure Information Date/Time: 05/22/22 1030 Procedure: RIGHT NIK THYROIDECTOMY (Right: Neck) Location: [address] Operating Room Surgeons: Jaycee Zhang DO Relevant Problems GI (+) Irritable bowel syndrome Past Medical History: Past Medical History: No date: Arthritis No date: Blood transfusion affecting No date: Disease of thyroid gland No date: IBS (irritable bowel syndrome) No date: Motion sickness No date: Neutropenia, cyclic (CMS/HCC) (HCC) No date: Orthostatic hypotension No date: PONV (postoperative nausea and vomiting) Past Surgical History: Past Surgical History: No date: CHOLECYSTECTOMY No date: HERNIA REPAIR No date: KNEE SURGERY Comment: plica No date: PELVIC LAPAROSCOPY Comment: to remove endometriosis No date: TOE SURGERY Social History: TOBACCO: reports that she has never smoked. She has never used smokeless tobacco. ETOH: reports current alcohol use. Social History Substance and Sexual Activity Drug Use Never Family History: No family history on file. Screening: unknown Clinical information reviewed: Tobacco Allergies Meds Med Hx Surg Hx OB Status Fam Hx Soc Hx Physical Exam Airway Mallampati: II TM distance: >3 FB Neck ROM: full Mouth Open: normal Cardiovascular Dental Pulmonary Abdominal Other findings: Denies loose teeth GERD controlled PONV: High Risk Total Score: 4 Female patient Non-smoker History of PONV History of motion sickness Anesthesia Plan ASA 2 general anesthesia The patient is not a current smoker. Patient was not previously instructed to abstain from smoking on day of procedure. Patient did not smoke on day of procedure. Anesthetic plan and risks discussed with patient. patient is NPO ERAS Meds Tylenol Pepcid Emend RENATE Screening Labs: Lab Results Component Value Date WBC 5.4 07/03/2020 HGB 12.5 07/03/2020 MCV 90.4 07/03/2020 Lab Results Component Value Date NA 142 07/03/2020 K 4.4 07/03/2020 CL 108 (H) 07/03/2020 CO2 25 07/03/2020 BUN 11 07/03/2020 CREATININE 0.74 07/03/2020 GLUCOSE 103 (H) 07/03/2020 CALCIUM 9.6 07/03/2020 PROT 7.3 07/03/2020 ALKPHOS 42 07/03/2020 AST 24 07/03/2020 Pain Score: 0 - No pain No echocardiogram results found for the past 14 days No results found for this or any previous visit. [id number] History and physical note* Yobani Franco Jr., MD - 05/22/2022 10:10 AM EST [facility] PreSurgical History and Physical Name: Caroline Allred : 1985 (Age-36 y.o.) Date of evaluation: 05/22/2022 Surgeon: Jaycee Zhang DO No Known Allergies Height: 161.3 cm (5' 3.5) Weight: 50.8 kg (112 lb) BMI (Calculated): 19.53 Chief Complaint: 36 y.o. female for Procedure(s): RIGHT NIK THYROIDECTOMY . 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 Medications: Prior to Admission medications Medication Sig Start Date End Date Taking? Authorizing Provider docusate sodium (Colace) 50 MG capsule Take by mouth 2 times daily. Yes Historical Provider, Glucosamine-Chondroitin 250-200 MG capsule Take 1 tablet by mouth 3 times daily. Yes Historical Provider, hydroxychloroquine (Plaquenil) 200 MG tablet Take by mouth. Yes Historical Provider, ibuprofen 200 MG tablet Take by mouth. Yes Historical Provider, loratadine (Claritin) 10 MG tablet Take by mouth. Yes Historical Provider, norethindrone ac-eth estradio (Shannon ) 1.5-30 MG-MCG tablet tablet 1 tablet daily. Yes Historical Provider, omeprazole (PriLOSEC) [address] capsule Take 20 mg by mouth every morning (before breakfast). Do notcrush or chew. Yes Historical Provider, Social history and Laboratory Data: Lab Results Component Value Date HGB 12.5 07/03/2020 WBC 5.4 07/03/2020 NA 142 07/03/2020 K 4.4 07/03/2020 BUN 11 07/03/2020 CREATININE 0.74 07/03/2020 GLUCOSE 103 (H) 07/03/2020 Social History Tobacco Use Smoking Status Never Smokeless Tobacco Never Social History Substance and Sexual Activity Alcohol Use Yes Comment: socially Social History Substance and Sexual Activity Drug Use Never Physical Examination: Constitutional: No apparent distress, well nourished, and in stable condition. Cardiac: Regular rate and rhythm Abdomen: Soft and nonacute Pulmonary: Clear bilaterally and no wheezing Neuro: Moves extremities X4 with no tremors HEENT: No gross cranial nerve defects and anicteric sclera Skin: Skin warm and dry with no visible rashes Vascular: Adequate perfusion of extremities with no cyanosis Psych: Alert and oriented x3 with appropriate affect Lymphatics: No swelling of arms/hands with no pedal edema Neck: FROM with no JVD Additional Notes:None After review of the medical history and physical assessment, medications, allergies, patient's current medical condition, and labs, this patient is at an optimal medical condition for the procedure and anesthetic at this outpatient surgical facility. Electronically signed by: Yobani Franco Jr, MD, MD Date: 05/22/2022 at 10:10 AM [employer] Work Phone: 1(915) 285-613712-22-2022 History of Present illness Narrative* Coty Haney APRN.WELL LOGGER - 04/24/2022 8:04 AM EST Lithograph [employer] offered: Patient declines. Caroline is a 36 year old who presents for an annual gynecologic exam without complaints. Menses: Continuous MAIKEL for menstrual and pain control Contraception: vasectomy. HPV vaccine: No Last Pap: 2017 normal HPV: negative History of abnormal pap: No Last mammogram: never Sexually active: Yes Patient concerns for STD exposure: No. Time with current partner: 12 years History of PCOS: Yes History of endometriosis: Yes - removed with surgery Pain with intercourse: No Postcoital bleeding: No OB History T1 L1 SAB1 IAB0 Ectopic0 Multiple0 Live Births1 Comment: G1 SAB, no D&C 3 children total; 1 biological child Emergency Care Tech History LMP: 06/10/2020, Drug Induced Amenorrhea Age at Menarche: Age at First : Age at Menopause: Emergency Care Tech History Comments: Sexual Activity: Yes; Male Contraception: Vasectomy PAST MEDICAL HISTORY Diagnosis Date Arthritis 2019 Cyclical neutropenia (HCC) Cystic fibrosis screening 2016 Had SMA/fragile x and CF screening, all neg. screens Endometriosis History of PCOS Hypotension Infertility, female Irritable bowel syndrome Irritable bowel Migraine, unspecified, with intractable migraine, so stated, without mention of status migrainosus Migraine Myopia Orthostatic hypotension PAST SURGICAL HISTORY Procedure Laterality Date BIOPSY VAGINAL MUCOSA EXTENSIVE 04/16/2017 revision of perineum/vagina from nonhealinge perineal ob lac CHOLECYSTECTOMY Cholecystectomy HERNIA REPAIR HX PAST SURGICAL HISTORY OF growth left knee PAST SURGICAL HISTORY OF left foot pin toe PAST SURGICAL HISTORY OF right foot FAMILY HISTORY Problem Relation Age of Onset Cancer Maternal Grandfather Stroke Paternal Grandfather No Known Problems Mother No Known Problems Father SOCIAL HISTORY Social History Tobacco Use Smoking status: Never Smokeless tobacco: Never Vaping Use Vaping Use: Never used Substance Use Topics Alcohol use: Yes Comment: social Drug use: No REVIEW OF SYSTEMS Abdomen: No abdominal pain, nausea, vomiting, diarrhea, or constipation. No bloating, early satiety, indigestion, or increased flatulence. Bladder: No dysuria, gross hematuria, urinary frequency, urinary urgency, or incontinence. Breast: No breast lumps, nipple d/c, overlying skin changes, redness or skin retraction. Allergies and current medication updated:Yes EXAM: BP 100/60 Ht 5' 3 (1.60m) Wt 112 lb (50.8kg) LMP 06/10/2020 BMI 19.84 kg/(m^2). GENERAL: pleasant, female in no apparent distress HEENT: Normocephalic, atraumatic, mucus membranes moist, and no lesions NECK: Supple, full range of motion, no adenopathy, and thyroid nodule DERMATOLOGY: Normal, without lesions, non-icteric, and non-hirsute BREAST: soft, non-tender, symmetric, no dominant mass, normal nipple-areolar complex, no lymphadenopathy, and no nipple discharge CHEST: Normal inspiratory effort ABDOMEN: soft, non-tender, and no masses PELVIC: external genitalia normal, normal Bartholin's glands, urethra, Tetlin's glands, no vulvar lesions, no cervical lesions, good vaginal support, physiologic discharge present, normal appearing perineal body and perianal region BIMANUAL: uterus normal size, shape and consistency, no adnexal masses, and non-tender RECTOVAGINAL: deferred. NEURO: alert and oriented x3,exam grossly non-focal EXTREMITIES: normal ASSESSMENT/PLAN: 1) Health maintenance: Pap done with HPV. Mammogram starting age 40. Nutrition, exercise and routine health maintenance exams reviewed. Continuous MAIKEL for menstrual control and dysmenorrhea 2) Contraception: vasectomy. Contraceptive options reviewed and information provided. 3) STD screening: Declined STD check. 4) Follow up one year or sooner as needed Coty Haney APRN.WELL LOGGER documented in this encounterV[facility] Administration10-18-2022 History of Present illness Narrative* Pankaj Sheldon RN - 02/18/2022 11:30 AM EDT Ultrasound: Caroline is here as a walk in outpatient for a Right nodule thyroid bipsy . She verbalizes understanding of the procedural instructions. Dr. Stefan Raines has spoken to her. History, allergies, medications and lab results reviewed. Informed consent signed. Prepped and draped in sterile fashion. Time out was performed. She is on a monitor. Tolerated the procedure well. She is in no distress. Band aid rght neck dry and intact. Mild neck swelling. Cold compress applied. She denies pain. Home going instructions given. Discharge to home. documented in this encounterSUMMA Work Phone: [phone]) 116-803007-14-2022 Miscellaneous Notes* Telephone Encounter - Dawson Patten PA-C - 11/14/2021 12:27 PM EDT Spoke with patient, she is actually doing better, states if symptoms started up again she will provide a new sample and a closer location * Telephone Encounter - Rosa Dean - 11/14/2021 10:22 AM EDT Patient stated she received a call from dax [place]arna. Nothing noted in chart. Please advise at [phone]. Ok to leave detailed vm. documented in this encounterVeterans Health Administration07-12-2022 History of Present illness Narrative* Dawson Patten PA-C - 11/12/2021 7:40 AM EDT BP 119/77 Pulse 66 Temp 36.6 C (97.8 F) (Temporal) Resp 18 LMP 06/10/2020 HISTORY OF PRESENT ILLNESS CC: Caroline is a 36 year old female who presents to the office today for evaluation of her UTI (Lower back pain, pressure, frequency and urgency since this morning) Onset: -This morning Location -urinary tract Duration - Course - continues Aggravated by - urination Alleviated by -none Treatment to date - none Risk Factors / Considerations -denies frequent urinary tract infections Recent travel - none Pain scale - PAST HISTORIES FAMILY HISTORY Problem Relation Age of Onset Cancer Maternal Grandfather Stroke Paternal Grandfather No Known Problems Mother No Known Problems Father Social History Tobacco Use Smoking status: Never Smoker Smokeless tobacco: Never Used Vaping Use Vaping Use: Never used Substance Use Topics Alcohol use: Yes Comment: social Drug use: No REVIEW OF SYSTEMS Constitutional - Negative, unless otherwise indicated in HPI Eyes - Negative, unless otherwise indicated in HPI ENT - Negative, unless otherwise indicated in HPI Cardiovascular - Negative, unless otherwise indicated in HPI Respiratory - Negative, unless otherwise indicated in HPI Gastrointestinal - Negative, unless otherwise indicated in HPI Genitourinary - Negative, unless otherwise indicated in HPI Musculoskeletal -joint pain Integumentary - Negative, unless otherwise indicated in HPI Neurologic - Negative, unless otherwise indicated in HPI Psychiatric / Behavioral - Negative, unless otherwise indicated in HPI Endocrine - Negative, unless otherwise indicated in HPI Hematological / lymphatic - Negative, unless otherwise indicated in HPI Allergic / Immunologic - Negative, unless otherwise indicated in HPI PHYSICAL EXAM GENERAL - Patient is oriented to person, place, and time and well-developed, well-nourished, and inno distress. HEAD - Normocephalic and atraumatic. RIGHT EAR - External ear normal. LEFT EAR - External ear normal RIGHT EYE - Conjunctivae is normal. Sclera is non icteric LEFT EYE - Conjunctivae is normal. Sclera is non icteric PULMONARY - Effort normal MUSCULOSKELETAL - Normal range of motion. NEUROLOGICAL - Patient is alert and oriented to person, place, and time. Gait normal. PSYCH - Mood, memory, affect and judgment normal. IMPRESSION Urinalysis today did not support the diagnosis of urinary tract infection PLAN Increase clear fluids Urine culture, if urine culture reveals any growth, patient will be contacted and treated Home going recommendations for symptoms were provided during counseling and on after visit summary All patient's questions were answered at this visit. Patient indicates understanding of discharge and medication instructions prior to discharge. Patient advised to return to contact their primary care physician if symptoms persist. Patient advised if symptoms suddenly worsen to call 911 or report to the emergency room. Patient discharged in stable condition. This note was dictated using [employer] speech recognition software and may contain some errors that were a result of the program not accurately transcribing what was dictated. documented in this encounterVeter[facility] Health Administration07-12-2022 Instructions* Patient Instructions* Elham Carbajal MA - 11/12/2021 7:38 AM EDT [facility] - LAB FACTS [phone] LAB HOURS: Lab is open Thursday - 7:30 am - 6 pm, Thursday 7:30 am to 5 pm, and Thursday 8 am -12 pm. LAB ORDERS 60 days after they are entered. If your lab orders , you may be required towait in the lab while they are reinstated. STANDING ORDERS are recurring orders with an expiration date. The interval will indicate how often the test should be completed. FASTING LAB means nothing to eat or drink (except water) 10-12 hours before your blood is drawn. CT MRI IVP If you have one of these radiology exams ordered along with blood work, please complete the blood work at least one day prior to the scheduled exam. [facility] The pharmacy is open Thursday - 8 am - 8 pm, and Thursday 8 am - 6 pm. [facility] RADIOLOGY Radiology is open Thursday - 7:30 am - 6 pm, Thursday 7:30 am - 5 pm, and Thursday 8 am - 12 pm. [facility] WALK-IN SCREENING MAMMOGRAPHY Walk-In mammography screenings are available Thursday - Thursday 3 pm - 7 pm, and Thursday 8 am - 12 pm. No appointment is necessary. A prior doctor's order is not required. [facility] [place] [place] No appointment is necessary. [facility] is for patients ages 2 years and older. For [facility] LOCATIONS, HOURS OF OPERATION and CURRENT WAIT TIMES, visit the following link: [facility] [email or web address]][0]=[facility]%20[facility]%20Clinics& My Chart Schedule My Appointment enables you to view your established primary care provider's open schedule and book an appointment online in real-time. This feature is available in internal medicine, family medicine, or pediatrics at any of our [facility] locations and main campus. documented in this encounterVeterans Health Administration01-17-2018 History of Past illness Narrative* Problem Noted Date Resolved Date Preoperative examination 05/20/2017 018 Overview: Added automatically from request for surgery [id number] Encounter for supervision of other normal , second trimester 08/20/2016 02/27/2017 Overview: August 20, 2016 Conceived on gonadatropin injections, transfer of care from Dr. Cordon's office. Has been attempting for several years, fertility treatments x 2 years. EDC is by JOLLY treatments and confirmed by first trimester US. Katia Bazzi MD Myopia 05/02/2013 08/20/2016 Syncope and collapse 01/10/2008 02/05/2016 Orthostatic hypotension 08/21/19 17 documented as of this encounter (statuses as of 11/12/2021) [facility] History of Past illness Narrative* Problem Noted Date Resolved Date Preoperative examination 05/20/2017 018 Overview: Added automatically from request for surgery [id number] Encounter for supervision of other normal , second trimester 08/20/2016 02/27/2017 Overview: August 20, 2016 Conceived on gonadatropin injections, transfer of care from Dr. Cordon's office. Has been attempting for several years, fertility treatments x 2 years. EDC is by JOLLY treatments and confirmed by first trimester US. Katia Bazzi MD Myopia 05/02/2013 08/20/2016 Syncope and collapse 01/10/2008 02/05/2016 Orthostatic hypotension 08/21/19 17 documented as of this encounter (statuses as of 11/14/2021) [facility] History of Past illness Narrative* Problem Noted Date Resolved Date Preoperative examination 05/20/2017 018 Overview: Added automatically from request for surgery [id number] Encounter for supervision of other normal , second trimester 08/20/2016 02/27/2017 Overview: August 20, 2016 Conceived on gonadatropin injections, transfer of care from Dr. Cordon's office. Has been attempting for several years, fertility treatments x 2 years. EDC is by JOLLY treatments and confirmed by first trimester US. Katia Bazzi MD Myopia 05/02/2013 08/20/2016 Syncope and collapse 01/10/2008 02/05/2016 Orthostatic hypotension 08/21/19 17 documented as of this encounter (statuses as of 04/25/2022) [facility] History of Past illness Narrative* Problem Noted Date Diagnosed Date Resolved Date Preoperative examination 05/20/201709/2017 Overview: Added automatically from request for surgery [id number] Encounter for supervision of other normal , second trimester 08/20/2016 02/27/2017 Overview: August 20, 2016 Conceived on gonadatropin injections, transfer of care from Dr. Cordon's office. Has been attempting for several years, fertility treatments x 2 years. EDC is by JOLLY treatments and confirmed by first trimester US. Katia Bazzi MD Myopia 05/02/2013 08/20/2016 Syncope and collapse 01/10/2008 016 Orthostatic hypotension 08/02 documented as of this encounter (statuses as of 02/10/2023) [facility] History of Past illness Narrative* Problem Noted Date Diagnosed Date Resolved Date Preoperative examination 05/20/201709/2017 Overview: Added automatically from request for surgery [id number] Encounter for supervision of other normal , second trimester 08/20/2016 02/27/2017 Overview: August 20, 2016 Conceived on gonadatropin injections, transfer of care from Dr. Cordon's office. Has been attempting for several years, fertility treatments x 2 years. EDC is by JOLLY treatments and confirmed by first trimester US. Katia Bazzi MD Myopia 05/02/2013 08/20/2016 Syncope and collapse 01/10/2008 016 Orthostatic hypotension 08/02 documented as of this encounter (statuses as of 04/08/2023) [facility] History of Past illness Narrative* Problem Noted Date Diagnosed Date Resolved Date Preoperative examination 05/20/201709/2017 Overview: Added automatically from request for surgery [id number] Encounter for supervision of other normal , second trimester 08/20/2016 02/27/2017 Overview: August 20, 2016 Conceived on gonadatropin injections, transfer of care from Dr. Cordon's office. Has been attempting for several years, fertility treatments x 2 years. EDC is by JOLLY treatments and confirmed by first trimester US. Katia Bazzi MD Myopia 05/02/2013 08/20/2016 Syncope and collapse 01/10/2008 016 Orthostatic hypotension 08/02 documented as of this encounter (statuses as of 06/11/2023) [facility]* Diagnosis Thyroid nodule Nontoxic uninodular goiter documented in this encounter [facility] Work Phone: Evaluation note* Diagnosis UTI symptoms- Primary Other symptoms involving urinary system documented [facility] this encounter [facility]* Diagnosis Encounter for gynecological examination (general) (routine) without abnormal findings- Primary Screening for cervical cancer Screening for malignant neoplasm of the cervix Encounter for screening for human papillomavirus (HPV) Special screening examination for human papillomavirus (HPV) Dysmenorrhea Surveillance for control, oral contraceptives Surveillance of previously prescribed contraceptive pill documented in this encounter [facility] note* Diagnosis Other neutropenia (CMS/HCC) (HCC)- Primary Other neutropenia documented in this encounter [facility] note* Diagnosis Hypothyroidism, unspecified- Primary documented in this encounter [facility] note* Diagnosis Other neutropenia (CMS/HCC) (HCC)- Primary Other neutropenia documented in this encounter [facility] note* Diagnosis Neoplasm of uncertain behavior of thyroid gland documented in this encounter [facility] note* Diagnosis Nail dystrophy Other specified disease of nail documented in this encounter [facility] note* Diagnosis Neoplasm of uncertain behavior of thyroid gland- Primary Neoplasm of uncertain behavior of thyroid gland documented in this encounter [facility] note* Diagnosis Nail dystrophy- Primary Other specified disease of nail documented in this encounter [facility] note* Diagnosis Other neutropenia (CMS/HCC) (HCC)- Primary Other neutropenia documented in this encounter [facility] note* Diagnosis Neoplasm of uncertain behavior of thyroid gland documented in this encounter [facility] note* Diagnosis Neoplasm of uncertain behavior of thyroid gland- Primary Neoplasm of uncertain behavior of thyroid gland documented in this encounter [facility] note* Diagnosis Neoplasm of uncertain behavior of thyroid gland documented in this encounter [facility] note* Diagnosis Dysmenorrhea Surveillance for control, oral contraceptives Surveillance of previously prescribed contraceptive pill documented in this encounter [facility] note* Diagnosis Mastodynia of left breast- Primary documented in this encounter [facility] note* Diagnosis Abnormal mammogram- Primary Abnormal mammogram, unspecified documented in this encounter [facility] note* Diagnosis Encounter for gynecological examination (general) (routine) without abnormal findings- Primary Dysmenorrhea Surveillance for control, oral contraceptives Surveillance of previously prescribed contraceptive pill documented in this encounter [facility] note* Diagnosis Pilar cyst of scalp- Primary documented in this encounter [facility] Discharge instructions* Attachments The following attachments cannot be sent through Care Everywhere. * Thyroid: Biopsy: Fine-Needle: Post-op ([place]) documented in [facility] encounter[facility] Work Phone: Reason for referral (narrative)* Diagnostic Procedure Only (Routine) - Authorized Specialty Diagnoses / Procedures Referred By Isaura arceo Referred To Contact [facility] Diagnoses Mastodynia of left breast Procedures ZAC SCREENING W ZULEMA SCREENING DIGITAL BREAST TOMOSYNTHESIS BI SCREENING MAMMOGRAPHY BI 2-VIEW BREAST INC CAD Alpesh Longoria MD [address] [place] [address] [facility] [address] [place] [address] Referral ID Status Reason Start Date Expiration Date Visits Requested Visits Authorized [id number] Authorized Auto-Generat ed Referral 05/09/2024 06/08/2025 1 1 * Diagnostic Procedure Only (Routine) - Authorized Specialty Diagnoses / Procedures Referred By Isaura arceo Referred To Contact [facility] IMAGING Diagnoses Mastodynia of left breast Procedures US BREAST LTD LEFT US BREAST UNI REAL TIME WITH IMAGE LIMITED Alpesh Longoria MD [address] [place] [address] [facility] [address] [place] [address] Referral ID Status Reason Start Date Expiration Date Visits Requested Visits Authorized [id number] Authorized Auto-Generat ed Referral 05/09/2024 06/08/2025 1 1 [facility] for referral (narrative)* Diagnostic Procedure Only (Routine) - New Request Specialty Diagnoses / Procedures Referred By Isaura arceo Referred To Contact [facility] IMAGING Diagnoses Abnormal mammogram Procedures US BREAST LTD RIGHT US BREAST UNI REAL TIME WITH IMAGE LIMITED Sujatha Nunn APRN.CNM [address] [place] [address] [facility] [address] [place] [address] Referral ID Status Reason Start Date Expiration Date Visits Requested Visits Authorized [id number] New Request Auto-Generat ed Referral 05/24/2024 06/23/2025 [address] [facility]* Diagnostic Procedure Only (Routine) - Closed Specialty Diagnoses / Procedures Referred By Isaura arceo Referred To Contact XR IMAGING Diagnoses Nail dystrophy Procedures XR TOE AP/LAT/OBL RIGHT RADEX TOE MINIMUM 2 VIEWS [address] [place] [address] [place] [address] Referral ID Status Reason Start Date Expiration Date V isits Requested Visits Authorized [id number] Closed Auto-Generate d Referral 04/07/2023 05/06/2024 1 1 [facility] Summary Purpose Family History No Family History Records FoundNo Family History Records FoundNo Family History Records FoundNo Family History Records FoundNo Family History Records FoundNo Family History Records Found Advance Directives No Advanced Directives Records FoundDocuments on File Type Date Recorded 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 Advance Directives and Living Will 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 Documents on File Type Date Recorded 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 ACP-Advance Directive ACP-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 Documents on File Type Date Recorded 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 ACP-Advance Directive ACP-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 Assessments Diagnosis Other neutropenia (HCC) Other neutropenia Diagnosis Lumbar radiculopathy Thoracic or lumbosacral neuritis or radiculitis, unspecified Diagnosis Acute bilateral thoracic back pain Muscle pain Mylagia and myositis, unspecified Diagnosis Other neutropenia (HCC) Other neutropenia Reason for Referral Status Reason Specialty Diagnoses / Procedures Re ferred By Contact Referred To Contact Authorized Radiology Diagnoses Lumbar radiculopathy Procedures MRI LUMBAR SPINE WO CONTRAST Fermin Huang MD [address] [place] [id number] Status Reason Specialty Diagnoses / Procedures Referre d By Contact Referred To Contact Closed Radiology Diagnoses Thyroid nodule Procedures US HEAD NECK SOFT TISSUE THYROID Tiffany Fowler, [employer]ING [employer] - WELL LOGGER [address] [place] [address] Chief Complaint and Reason for Visit Chief Complaint Admit Date MASTODNIA LEFT N64.6 May 24, 2024 9:12am BUMP ON HEAD AND POSSIBLE HERNIA July 072024 2:38pm POSSIBLE EXCISION OF BUMP ON HEAD August 12, 2024 1:58pm POSSIBLE EXCISION OF BUMP ON HEAD September 122024 1:56pm WOUND CHECK S/P PARTIAL EXCISION OF MASS September 20, 2024 8:07am Reason for Visit Admit Date Mass of head July 07, 2024 2:38 pm Mass of head August 12, 2024 1:5 8pm Chief Complaint Admit Date BUMP ON HEAD AND POSSIBLE HERNIA July 072024 2:38pm POSSIBLE EXCISION OF BUMP ON HEAD August 12, 2024 1:58pm POSSIBLE EXCISION OF BUMP ON HEAD September 122024 1:56pm WOUND CHECK S/P PARTIAL EXCISION OF MASS September 20, 2024 8:07am MASS ON HEAD October 07, 2024 9:04a m Reason for Visit Admit Date Mass of head July 07, 2024 2:38 pm Mass of head August 12, 2024 1:5 8pm Mass of head September 20, 2024 8:07a m Additional Source Comments INFORMATION SOURCE (unrecogn ized section and content) DATE CREATED AUTHOR 10/26/2017 [facility] DATE CREATED AUTHOR AUTHOR'S ORGANIZ ATION 08/12/2018 [facility] DATE CREATED AUTHOR AUTHOR'S ORGANIZ ATION 02/23/2022 [facility] DATE CREATED AUTHOR AUTHOR'S ORGANIZ ATION 02/17/2024 [facility] DATE CREATED AUTHOR AUTHOR'S ORGANIZ ATION 07/02/2024 [facility] DATE CREATED AUTHOR AUTHOR'S ORGANIZ ATION 10/12/2024 [facility] Source Comments (unrecognize d section and content) In the event this informatio n is protected by the Federal Confidentiality of Alcohol and Drug Abuse Patient Records regulations: The Federal rules restrict any use of the information to criminally investigate or prosecute any alcohol or drug abuse patient.[facility] AdministrationIn the event this information is protected by the Federal Confidentiality of Alcohol and Drug Abuse Patient Records regulations: The Federal rules restrict any use of the information to criminally investigate or prosecute any alcohol or drug abuse patient.[facility] the event this information is protected by the Federal Confidentiality of Alcohol and Drug Abuse Patient Records regulations: The Federal rules restrict any use of the information to criminally investigate or prosecute any alcohol or drug abuse patient.[facility] AdministrationIn the event this information is protected by the Federal Confidentiality of Alcohol and Drug Abuse Patient Records regulations: The Federal rules restrict any use of the information to criminally investigate or prosecute any alcohol or drug abuse patient.[facility] AdministrationIn the event this information is protected by the Federal Confidentiality of Alcohol and Drug Abuse Patient Records regulations: The Federal rules restrict any use of the information to criminally investigate or prosecute any alcohol or drug abuse patient.[facility] Clinic[facility] the event this information is protected by the Federal Confidentiality of Alcohol and Drug Abuse Patient Records regulations: The Federal rules restrict any use of the information to criminally investigate or prosecute any alcohol or drug abuse patient.[facility] AdministrationIn the event this information is protected by the Federal Confidentiality of Alcohol and Drug Abuse Patient Records regulations: The Federal rules restrict any use of the information to criminally investigate or prosecute any alcohol or drug abuse patient.[facility] AdministrationIn the event this information is protected by the Federal Confidentiality of Alcohol and Drug Abuse Patient Records regulations: The Federal rules restrict any use of the information to criminally investigate or prosecute any alcohol or drug abuse patient.[facility] AdministrationIn the event this information is protected by the Federal Confidentiality of Alcohol and Drug Abuse Patient Records regulations: The Federal rules restrict any use of the information to criminally investigate or prosecute any alcohol or drug abuse patient.[facility] AdministrationIn the event this information is protected by the Federal Confidentiality of Alcohol and Drug Abuse Patient Records regulations: The Federal rules restrict any use of the information to criminally investigate or prosecute any alcohol or drug abuse patient.[facility] AdministrationIn the event this information is protected by the Federal Confidentiality of Alcohol and Drug Abuse Patient Records regulations: The Federal rules restrict any use of the information to criminally investigate or prosecute any alcohol or drug abuse patient.[facility] AdministrationIn the event this information is protected by the Federal Confidentiality of Alcohol and Drug Abuse Patient Records regulations: The Federal rules restrict any use of the information to criminally investigate or prosecute any alcohol or drug abuse patient.[facility] AdministrationIn the event this information is protected by the Federal Confidentiality of Alcohol and Drug Abuse Patient Records regulations: The Federal rules restrict any use of the information to criminally investigate or prosecute any alcohol or drug abuse patient.[facility] Reason for Visit (unrecogniz ed section and content) Reason Comments UTI Lower back pain, pre ssure, frequency and urgency since this morning Reason Comments Return Call Request Reason Comments Follow-up Had blood test sent [facility] Reason Comments Established Patient Follow Up Reason Comments Follow-up Other neutropenia (C MS/HCC) (HCC) Specialty Diagnoses / Procedures Referred By Isaura t Referred To Contact Diagnoses 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] Procedures CA TOTAL THYROID LOBECTOMY UNI W/WO ISTHMUSECTOMY RIGHT NIK THYROIDECTOMY Jaycee Zhang, [address] [place] [address] [facility] [address] [place] [address] Referral ID Status Reason Start Date Expiration Date Visits Re quested Visits Authorized [id number] 1 Reason Onset Date Comments Refill Request 04/28/2024 Reason Comments Breast Problem Reason Comments Orders Reason Comments Orders Reason Comments Well Woman Reason Comments Mass On back of head near right ear, painful to touch, no injury, noticed last night Care Teams (unrecognized sec tion and content) Tailings Worker Relationship Specialty Start Date End Date Yolie Stanton PCP - General Family Practice 05/02/13 Tailings Worker Relationship Specialty Start Date End Date Yolie Stanton PCP - General Family Practice 05/02/13 Tailings Worker Relationship Specialty Start Date End Date Yolie Stanton MD PCP - General 01/24/15 Tailings Worker Relationship Specialty Start Date End Date Yolie Stanton MD PCP - General 01/24/15 Tailings Worker Relationship Specialty Start Date End Date Yolie Stanton MD PCP - General Family Medicine 05/02/13 Tailings Worker Relationship Specialty Start Date End Date Yolie Stanton MD [address] [place] [address] PCP - General 01/24/15 Ino Martinez DO [address] [place] [address] [place] [address] Consulting Physician Hematology and Oncology 06/03/22 Tailings Worker Relationship Specialty Start Date End Date Yolie Stanton MD [address] [place] [address] PCP - General 01/24/15 Ino Martinez DO [address] [place] [address] [place] [address] Consulting Physician Hematology and Oncology 06/03/22 Tailings Worker Relationship Specialty Start Date End Date Yolie Stanton MD [address] [place] [address] PCP - General 01/24/15 Ino Matrinez DO [address] [place] [address] [place] [address] Consulting Physician Hematology and Oncology 06/03/22 Tailings Worker Relationship Specialty Start Date End Date Yolie Stanton MD PCP - General Family Medicine 05/02/13 Tailings Worker Relationship Specialty Start Date End Date Yolie Stanton MD PCP - General Family Medicine 05/02/13 Tailings Worker Relationship Specialty Start Date End Date Yolie Stanton MD [address] [place] [address] PCP - General 01/24/15 Ino Martinez DO [address] [place] [address] [place], [place] [id number] Consulting Physician Hematology and Oncology 06/03/22 Tailings Worker Relationship Specialty Start Date End Date Yolie Stanton MD PCP - General Family Medicine 05/02/13 Tailings Worker Relationship Specialty Start Date End Date Yolie Stanton MD PCP - General Family Medicine 05/02/13 Tailings Worker Relationship Specialty Start Date End Date Yolie Stanton MD [address] [place] [address] PCP - General 01/24/15 Ino Martinez DO [address] [place] [address] [place] [address] Consulting Physician Hematology and Oncology 06/03/22 Tailings Worker Relationship Specialty Start Date End Date Yolie Stanton MD [address] [place] [address] PCP - General 01/24/15 Ino Martinez DO [address] [place] [address] [place] [address] Consulting Physician Hematology and Oncology 06/03/22 Tailings Worker Relationship Specialty Start Date End Date Yolie Stanton MD [address] [place] [address], [place] [address] PCP - General 01/24/15 Tailings Worker Relationship Specialty Start Date End Date Yolie Stanton MD [address] [place] [address] PCP - General 01/24/15 Tailings Worker Relationship Specialty Start Date End Date Yolie Stanton MD [address] [place] [address] PCP - General 01/24/15 Ino Martinez DO [address] [place] [address] [place] [address] Consulting Physician Hematology and Oncology 06/03/22 Tailings Worker Relationship Specialty Start Date End Date Yolie Stanton MD [address] [place] [address], [place] [address] PCP - General 01/24/15 Ino Martinez DO [address] [place] [address] [place] [address] Consulting Physician Hematology and Oncology 06/03/22 Tailings Worker Relationship Specialty Start Date End Date Yolie Stanton MD PCP - General Family Medicine 05/02/13 Tailings Worker Relationship Specialty Start Date End Date Yolie Stanton MD PCP - General Family Medicine 05/02/13 Tailings Worker Relationship Specialty Start Date End Date Yolie Stanton MD PCP - General Family Medicine 05/02/13 Tailings Worker Relationship Specialty Start Date End Date Yolie Stanton MD PCP - General Family Medicine 05/02/13 Tailings Worker Relationship Specialty Start Date End Date Yolie Stanton MD PCP - General Family Medicine 05/02/13 Tailings Worker Relationship Specialty Start Date End Date Yolie Stanton MD PCP - General Family Medicine 05/02/13 Team Status: Active Member Role Status Dates YOLIE STANTON Family Provider Active Dr. Julio Barfield MD Primary Care Provider Active Team Status: Inactive Member Role Status Dates Dr. Yolie Stanton MD Primary Care Provider Active Start: May 24, 2024 End: May 24, 2024 ROSAS BETTS Attending Provider Active Start : May 24, 2024 End: May 24, 2024 ROSAS BETTS Referring Provider Active Start : May 24, 2024 End: May 24, 2024 Team Status: Inactive Member Role Status Dates Dr. Alpesh Rivera MD Attending Provider Active Start: July 07, 2024 End: July 07, 2024 Team Status: Inactive Member Role Status Dates Dr. Alpesh Rivera MD Attending Provider Active Start: August 12, 2024 End: August 12, 2024 Dr. Julio Barfield MD Primary Care Provider Active Start: August 12, 2024 End: August 12, 2024 Dr. Julio Barfield MD Referring Provider Active Start: August 12, 2024 End: August 12, 2024 Team Status: Inactive Member Role Status Dates Dr. Julio Barfield MD Primary Care Provider Active Start: September 12, 2024 End: September 12, 2024 Dr. Julio Barfield MD Referring Provider Active Start: September 12, 2024 End: September 12, 2024 Dr. Alpesh Rivera MD Attending Provider Active Start: September 12, 2024 End: September 12, 2024 Team Status: Inactive Member Role Status Dates Dr. Julio Barfield MD Primary Care Provider Active Start: September 20, 2024 End: September 20, 2024 Dr. Julio Barfield MD Referring Provider Active Start: September 20, 2024 End: September 20, 2024 Dr. Alpesh Rivera MD Attending Provider Active Start: September 20, 2024 End: September 20, 2024 Team Status: Inactive Member Role Status Dates Dr. Julio Barfield MD Primary Care Provider Active Start: October 07, 2024 End: October 07, 2024 Dr. Julio Barfield MD Referring Provider Active Start: October 07, 2024 End: October 07, 2024 Dr. Ángel Rosario MD Attending Provider Active Start: October 07, 2024 End: October 07, 2024 Scheduled Active and Recently Administ ered Medications (unrecognized section and content) Medication Order 05/20/2022 05/21/2022 05/22/2022 acetaminophen (Tylenol) tablet 1,000 mg (COMPLETED) 1,000 mg, Oral, Once, On Josephine 05/22/22 at 0845, For 1 dose, Preprocedure, Maximum dose of acetaminophen is 4000 mg from all sources in 24 hours. Do not administer if patient has taken tylenol <4 hours earlier. Do not give if contraindicated ie. patient has active liver disease or cirrhosis. 0917 (Given - Provid er: Cathleen Buchanan RN) aprepitant (Emend) capsule 40 mg (COMPLETED) 40 mg, Oral, Once, On Josephine 05/22/22 at 1330, For 1 dose, Preprocedure 1130 (Given - Provid er: Cathleen Buchanan RN) famotidine (Pepcid) tablet 20 mg (COMPLETED) 20 mg, Oral, Once, On Josephine 05/22/22 at 0845, For 1 dose, Preprocedure 0917 (Given - Provid er: Cathleen Buchanan RN) sodium chloride 0.9 % bolus 500 mL 500 mL, IntraVENous, at 1,000 mL/hr, Administer over 0.5 Hours, Once, On Josephine 05/22/22 at 1330, For 1 dose, Recovery (only), Indications: Anti-nausea 1330 (Canceled Entry - Provider: Automatic Discharge Provider - Comment: Automatically canceled at discontinue of medication order) sodium chloride 0.9% (NS) flush 10 mL 10 mL, IntraVENous, Every 12 hours scheduled (2 times per day), First dose on Josephine 05/22/22 at 0900, Preprocedure 0900 (Canceled Entry - Provider: Automatic Discharge Provider - Comment: Automatically canceled at discontinue of medication order) sodium chloride 0.9% (NS) flush 5-40 mL 5-40 mL, IntraVENous, Every 12 hours, First dose on Josephine 05/22/22 at 0845, Preprocedure, For Line Patency: Peripheral IV = 5 mL; Midline or Central Line = 10 mL/lumen. If following IV push medication, administer flush at same rate as the IV push. Flush volume is determined by type of infusion therapy being given. For non-viscous solutions use: Peripheral IV = 5 mL Midline or Central Line = 10 mL/lumen For viscous solutions (i.e. blood components, parenteral nutrition, contrast media, or after obtaining blood sample) use: Peripheral IV = 10 mL Midline or Central Line = 20 mL/lumen 0845 (Canceled Entry - Provider: Automatic Discharge Provider - Comment: Automatically canceled at discontinue of medication order) Continuous Medication Order 05/20/2022 05/21/2022 05/22/2022 lactated Ringer's infusion 50 mL/hr, IntraVENous, Continuous, Starting on Josephine 05/22/22 at 0845, Preprocedure, Upon admission to sameday - please start iv if patient does not have iv access. Use 500ml NS for patients on dialysis. 0845 (Canceled Entry - Provider: Automatic Discharge Provider - Comment: Automatically canceled at discontinue of medication order) lactated ringers infusion 125 mL/hr, IntraVENous, Continuous, Starting on Josephine 05/22/22 at 1330, Recovery (only) 1330 (Canceled Entry - Provider: Automatic Discharge Provider - Comment: Automatically canceled at discontinue of medication order) PRN Medication Order 05/20/2022 05/21/2022 05/22/2022 calcium chloride 10 % injection (CANCELED) As needed, Starting on Josephine 05/22/22 at 1212, Intraprocedure 1212 (Given - Provid er: Jaycee Zhang, - Comment: mixed with 5,000 units thrombin) diphenhydrAMINE (BENADryl) injection 12.5 mg 12.5 mg, IntraVENous, Once PRN, itching, Starting on Josephine 05/22/22 at 1320, For 1 dose, Recovery (only) hydrALAZINE (Apresoline) injection 5 mg(Linked Group 1) 5 mg, IntraVENous, Every 15 min PRN, high blood pressure, for SBP greater than 160 mmHg for 2 consecutive measurements taken from different sites, Starting on Josephine 05/22/22 at 1320, For 2 doses, Recovery (only), PRN for SBP > 160 for 2 consecutive measurements, and if one of the following conditions is met: 1) If IV labetolol is ineffective. 2) If HR is under 60. 3) If patient has heart block, COPD or asthma. If both labetalol and hydralazine ineffective, notify anesthesia provider. HYDROmorphone (Dilaudid) injection 0.25 mg 0.25 mg, IntraVENous, Every 5 min PRN, moderate pain (4-6), Starting on Jsoephine 05/22/22 at 1320, For 4 doses, Recovery (only), Phase I and Phase II- Initial therapy for moderate pain (4-6). Restricted to a 90 minute time frame starting when the patient can verbally state their pain score. If after 2 doses the pain score does not decrease by more than one point, then call the provider. If oral meds are utilized, do not return to initial therapy medications. HYDROmorphone (Dilaudid) injection 0.5 mg 0.5 mg, IntraVENous, Every 5 min PRN, severe pain (7-10), Starting on Jsoephine 05/22/22 at 1320, For 4 doses, Recovery (only), Phase I and Phase II- Initial therapy for moderate pain (4-6). Restricted to a 90 minute time frame starting when the patient can verbally state their pain score. If after 2 doses the pain score does not decrease by more than one point, then call the provider. If oral meds are utilized, do not return to initial therapy medications. labetalol (Normodyne,Trandate) injection 5 mg(Linked Group 1) 5 mg, IntraVENous, Every 10 min PRN, high blood pressure, for SBP greater than 160 mmHg for 2 consecutive measurements taken from different sites., Starting on Josephine 05/22/22 at 1320, For 2 doses, Recovery (only), PRN for SBP >160 for 2 consecutive measurements, if HR is 60 or greater. If beta carmen is contraindicated (HR less than 60, heart block, COPD or asthma) use hydralazine IV order. lidocaine-EPINEPHrine (Xylocaine W/EPI) 1 %-[id number] injection (CANCELED) As needed, Starting on Josephine 05/22/22 at 1139, Intraprocedure 1139 (Given - Provid er: Jaycee Zhang DO) LORazepam (Ativan) injection 0.5 mg 0.5 mg, IntraVENous, Once PRN, for anxiety or muscle spasm., Starting on Josephine 05/22/22 at 1320, For 1 dose, Recovery (only), For IV doses dilute dose with 1ml NS. meperidine (Demerol) injection 12.5 mg 12.5 mg, IntraVENous, Every 5 min PRN, shivering, Starting on Josephine 05/22/22 at 1320, For 4 doses, Recovery (only), May give every 5 minutes to max of 50mg. metoclopramide (Reglan) injection 5 mg 5 mg, IntraVENous, Once PRN, nausea, Starting on Josephine 05/22/22 at 1320, For 1 dose, Recovery (only), Secondary antiemetic therapy. Notify anesthesia provider before administration. ondansetron (Zofran) injection 4 mg (COMPLETED) 4 mg, IntraVENous, Once PRN, nausea, Starting on Josephine 05/22/22 at 1320, For 1 dose, Recovery (only), Initial antiemetic therapy. 1320 (Given - Provid er: Evelyn Hwang RN) oxyCODONE (Roxicodone) immediate release tablet 10 mg(Linked Group 2) 10 mg, Oral, PRN, severe pain (7-10), Starting on Josephine 05/22/22 at 1320, For 1 dose, Recovery (only), PHASE II oxyCODONE (Roxicodone) immediate release tablet 5 mg(Linked Group 2) 5 mg, Oral, PRN, moderate pain (4-6), Starting on Josephine 05/22/22 at 1320, For 1 dose, Recovery (only), PHASE II sodium chloride 0.9 % infusion 5-250 mL/hr, IntraVENous, PRN, if patient receiving piggyback infusions and maintenance fluids are not ordered OR KVO fluids to protect IV site / prevent frequent line interruptions / long duration, Starting on Josephine 05/22/22 at 0839, Preprocedure, For piggyback infusion, administer at same rate as piggyback for a total of 25 mL. Enter 25 mL into dose field and piggyback rate into rate field of order. If piggyback is infusing at a rate less than 100 mL/hr, enter 25 mL into dose field and 100 mL/hr into rate field of order. For KVO fluids, enter rate of 20 mL/hr or less into rate field of order. sodium chloride 0.9 % irrigation solution (CANCELED) As needed, Starting on Josephine 05/22/22 at 1138, Intraprocedure 1138 (Given - Provid er: Jaycee Zhang DO) sodium chloride 0.9% (NS) flush 10 mL 10 mL, IntraVENous, PRN, line care, Starting on Josephine 05/22/22 at 0839, Preprocedure, After every IV line use sodium chloride 0.9% (NS) flush 5-40 mL 5-40 mL, IntraVENous, PRN, line care, After every IV line use, Starting on Josephine 05/22/22 at 0839, Preprocedure, For Line Patency: Peripheral IV = 5 mL; Midline or Central Line = 10 mL/lumen. If following IV push medication, administer flush at same rate as the IV push. Flush volume is determined by type of infusion therapy being given. For non-viscous solutions use: Peripheral IV = 5 mL Midline or Central Line = 10 mL/lumen For viscous solutions (i.e. blood components, parenteral nutrition, contrast media, or after obtaining blood sample) use: Peripheral IV = 10 mL Midline or Central Line = 20 mL/lumen thrombin spray (CANCELED) As needed, Starting on Josephine 05/22/22 at 1145, Intraprocedure 1145 (Given - Provid er: Jaycee Zhang DO - Comment: diluted with 5 ml of calcium chloride) Linked Groups Order Group 1: labetalol (Normodyne,Trandate) injection 5 mgJump to med 5 mg, IntraVENous, Every 10 min PRN, high blood pressure, for SBP greater than 160 mmHg for 2 consecutive measurements taken from different sites., Starting on Josephine 05/22/22 at 1320, For 2 doses, Recovery (only)
PRN for SBP >160 for 2 consecutive measurements, if HR is 60 or greater. If beta carmen is contraindicated (HR less than 60, heart block, COPD or asthma) use hydralazine IV order.
Or hydrALAZINE (Apresoline) injection 5 mgJump to med 5 mg, IntraVENous, Every 15 min PRN, high blood pressure, for SBP greater than 160 mmHg for 2 consecutive measurements taken from different sites, Starting on Josephine 05/22/22 at 1320, For 2 doses, Recovery (only)
PRN for SBP > 160 for 2 consecutive measurements, and if one of the following conditions is met: 1) If IV labetolol is ineffective. 2) If HR is under 60. 3) If patient has heart block, COPD or asthma. If both labetalol and hydralazine ineffective, notify anesthesia provider.
Group 2: oxyCODONE (Roxicodone) immediate release tablet 5 mgJump to med 5 mg, Oral, PRN, moderate pain (4-6), Starting on Josephine 05/22/22 at 1320, For 1 dose, Recovery (only)
PHASE II
Or oxyCODONE (Roxicodone) immediate release tablet 10 mgJump to med 10 mg, Oral, PRN, severe pain (7-10), Starting on Josephine 05/22/22 at 1320, For 1 dose, Recovery (only)
PHASE II
Goals (unrecognized section and content) Goals may be documented in a n alternate sectionGoals may be documented in an alternate section FOR RECORDS PERTAINING TO PATIENTS WHO ARE OR HAVE BEEN ENROLLED IN A CHEMICAL DEPENDENCY/SUBSTANCEABUSE PROGRAM, SOME INFORMATION MAY BE OMITTED. This clinical summary was aggregated from multiple sources. Caution should be exercised in using it in the provision of clinical care. This summary normalizes information from multiple sources, and as a consequence, information in this document may materially change the coding, format and clinical context of patient data. In addition, data may be omitted in some cases. CLINICAL DECISIONS SHOULD BE BASED ON THE PRIMARY CLINICAL RECORDS. [employer] [facility]. provides no warranty or guarantee of the accuracy or completeness of information in this document.
== END | disposition home or self-care (01) ==
LOC: US 09:47
PROVIDERS: PCP Family Medicine; Referring Provider Surgery Plastic and Reconstructive Surgery; Visit Provider Surgery Plastic and Reconstructive Surgery
DX: R22.0 Localized swelling, mass and lump, head (principal)
CPT/HCPCS: 76536

== ENCOUNTER 2024-11-09 10:02 | Day surgery (SDC) | payer BC, SELFPAY ==
[2024-11-09] VITALS (10 sets, daily range): BP systolic 103–132; BP diastolic 60–86; PULSE 68–89; RESP 16–18; TEMP 36.4–36.9; O2SAT 100; BMI 20.2
[2024-11-09 10:31] LABS: Internal QC Validated? YES +Cl - CLEAR BKGD; Pregnancy, Urine Negative Negative; Record Kit Lot#,Urine Preg 0000947241
[2024-11-09] MEDS: Lactated Ringers 1,000 ML 15 ML IV (10:40)
--- NOTE | 2024-11-09 10:47 | PCM.PRE.AN2 ---
ASA Classification* ASA Classification ASA Classification: 1 Assessment & Plan Anesthesia* Anesthesia Assessment Anesthesia Assessment: Discussed sedation and/or anesthesia options, risks, benefits, and alternatives with patient/parents/legal guardian/POA. Questions invited. The patient/parents/legal guardian/POA seems to understand and agrees to proceed with anesthesia plan. Reviewed the physical assessment, medical history, allergy history and patient home medications list prior to surgery/procedure/anesthetic and documented any changes. Performed airway and anesthesia risk assessments. Anesthesia Type Anesthesia Type: General History Source History Obtained from:: Patient and Chart Anesthesia Focused Assessment* Temperature: 97.8 F Pulse Rate: 74 Blood Pressure: 132/86 Respiratory Rate: 18 Pulse Ox: 100 Oxygen Delivery Method: Room Air Airway Assessment Mouth opens: >3 cm Mallampati Score: II Teeth Condition: Intact Neck Range of motion (ROM): Full ROM Labs Anesthesia Preop lab: CBC WBC 4.8 K/mm3 (4.4-11.0) 12/06/19 16:40 12/06/19 RBC 4.34 M/mm3 (4.2-5.4) 12/06/19 16:40 12/06/19 Hgb 13.2 g/dL (12.0-15.0) 12/06/19 16:40 12/06/19 Hct 39.7 % (37-47) 12/06/19 16:40 12/06/19 Plt Count 258 K/mm3 (150-450) 12/06/19 16:40 12/06/19 CHEMISTRY Potassium 4.4 mmol/L (3.5-5.1) 07/05/19 15:37 07/05/19 Sodium 141 mmol/L (136-145) 07/05/19 15:37 07/05/19 BUN 13 mg/dL (7-18) 07/05/19 15:37 07/05/19 Creatinine 0.81 mg/dL (0.55-1.02) 07/05/19 15:37 07/05/19 Glucose 82 mg/dL (74-106) 07/05/19 15:37 07/05/19 TSH 1.07 uIU/mL (0.358-3.74) 08/07/14 09:16 08/07/14 COAG Urine Test Negative Negative 11/09/24 10:15 11/09/24 Pre-Assessment Diagnosis/Proposed Procedure Planned Operative Procedure(s): RIGHT SCALP MASS REMOVAL POSS NERVE REPAIR Anesthesia History Anesthesia History - varnish 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 When Was Last Pacemaker Check QUESTION #4 FULL TEXT: You/Your Family Experience fever (hyperthermia) with Anesthesia Last Oral Intake Last Oral intake: Last Oral Intake NPO since 06:00 11/09/24 10:35 Meds taken in AM with sips of No 11/09/24 10:35 water? Meds patient instructed to take am of surgery PONV PONV - varnish maker helper: PONV - varnish maker helper Female Yes 10/19/24 15:19 HX of Motion Sickness Yes 10/19/24 15:19 HX of N/V After Surgery No 10/19/24 15:19 Non-Smoker Yes 10/19/24 15:19 Duration of Surgery greater Yes 10/19/24 15:19 than 60 minutes Number of Risk Factors 4 10/19/24 15:19 PONV Score Severe Risk 10/19/24 15:19 Height & Weight Height & Weight: Anesthesia: Height & Weight Height 5 ft 3 in 11/09/24 10:35 Weight: 52 kg 11/09/24 10:35 Body Mass Index (BMI) 20.2 11/09/24 10:35 Respiratory Assessment Respiratory Assessment - varnish maker helper: Respiratory Tract Infection Hx - varnish maker helper Hx Respiratory Tract Infection No 10/19/24 15:19 STOP Sleep Apnea STOP Sleep Apnea - varnish maker helper: STOP Sleep Apnea - varnish maker helper Hx Hypertension No 10/19/24 15:19 Hx Sleep Apnea No 10/19/24 15:19 CPAP No 04/16/17 14:01 BIPAP Do you snore loudly (louder No 10/19/24 15:19 than talking or can be heard Do you often feel tired/ No 10/19/24 15:19 fatigued/ sleepy during daytime? Has anyone observed you stop No 10/19/24 15:19 breathing during sleep? STOP Results Negative 10/19/24 15:19 QUESTION #5 FULL TEXT : Do you snore loudly (louder than talking or can be heard through closed doors)? 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 Specify any problems Hx of Preganancy in last 3 No 10/19/24 15:19 Months Nurse Filling Out Transfusion DSCHRIBER 10/19/24 15:19 & Questions: Date: 10/19/24 10/19/24 15:19 Time: 15:20 10/19/24 15:19 Patient unable to answer at this time (ie. confused, unrespo /Reproduction History /Reproductive History - varnish maker helper: /Reproductive Hx- varnish maker helper Hx Now No 10/19/24 15:19 Gestational Age (in weeks): EDC: Hx Hx Para Hx Section SAB No 10/19/24 15:19 Active Medications Active Medications: Current Medications Generic Name Dose Route Start Last Admin Trade Name Freq PRN Reason Stop Dose Admin Cefazolin Sodium 2 gm/ Sodium 110 mls @ 200 mls/hr 11/09/24 11:25 Chloride IV 11/09/24 11:57 INTRAOP ONE Lactated Ringer's 1,000 mls @ 15 mls/hr 11/09/24 10:15 11/09/24 10:40 IV 15 mls/hr .Q48H PANFILO Administration PFSH Medical History (Updated 10/19/24 @ 15:25 by Luzma Ritchie) Wears contact lenses Cancer Alcohol use History of IBS Heartburn Non-smoker Cardiology follow-up encounter Acute otitis media Arthritis History of hemorrhoids Home Medications ?Medication ?Instructions ?Recorded ?Last Taken ?Type hydroxychloroquine 200 mg tablet 200 mg PO DAILY 11/13/19 Unknown History (Plaquenil) cholecalciferol (vitamin D3) 125 125 mcg PO QDAY 07/07/24 Unknown History mcg (5,000 unit) capsule glucosamine HCl 500 mg tablet 500 mg PO QDAY 07/07/24 Unknown History norethindrone acetate 1.5 1 tab PO QDAY 07/07/24 Unknown History mg-ethinyl estradiol 30 mcg tablet (Chava) [id number]-[id number]-bqt-lsm-vac-lxec-horse 1 tab PO DAILY 07/07/24 Unknown History 100 mg-100 mg-100 mg-125 mg tab (Tumersaid) ibuprofen 200 mg tablet (Advil) 400 mg PO Q8H PRN pain 10/19/24 Unknown History Allergy/AdvReac Type Severity Reaction Status Date / Time No Known Allergies Allergy Verified 11/09/24 10:35 Surgical History (Updated 10/19/24 @ 15:25 by Luzma Ritchie) Hx of partial thyroidectomy Hx of laparoscopy Hx of arthroscopic knee surgery Hx of foot surgery Hx of hernia repair History of cholecystectomy Social History Smoking Status: Never smoker Review of Systems (Anesthesia) ROS Narrative System reviewed and no additional complaints, except as documented.
--- NOTE | 2024-11-09 11:25 | MASS_PTH ---
PATIENT: BURKE TURNER [place] [facility] [id number] AGE/SX: 39/F ROOM: RE11/09/[address]: Dr. Ángel Rosario MD : 1985 BED: DIS: 11/09/2024 SPEC #: [id number] RECD: 11/09/24 14:59 STATUS: BALTAZAR OVIEDO #: [id number] PERRY: 11/09/24 11:[address]: Ángel Rosario DEPT: SURGICAL PATHOLOGY RECD BY: Gil Mendieta ENTERED: 11/09/24 15:43 SP TYPE: Mass OTHR DR: Dr. Yolie Bedoya MD Tissues: A - Scalp, NOS Procedures: Surgery Specimen Level III HEADER OPERATION: Right scalp mass removal PRE-OP DIAGNOSIS: Mass of head TISSUE SUBMITTED: A- Right scalp mass MICROSCOPIC DIAGNOSIS A. Scalp, right, mass, excision: * Lipoma MICROSCOPIC DESCRIPTION Slides are reviewed. GROSS DESCRIPTION A. Received in formalin labeled with the patient's name and date of . Designated as right scalp mass is a 2.3 x 1.8 x 0.3 cm aggregate of aguilar-yellow fatty tissue fragments. Entirely submitted in 1 cassette. AL 11/09/2024 CPT:61976
--- NOTE | 2024-11-09 12:35 | HP.PCM.SX_ITS ---
HPI - General HPI Narrative Caroline Allred is a delightful 38-year-old female who has a history of a lump behind her right ear that has been present for approximately 4 months. General surgery saw her in clinic and believed to be an epidermal inclusion cyst. In the office procedure room, they attempted removal of the cyst and patient had shooting electrical pain, and there was some concern that there was a nerve adjacent to the cyst that was within the surgical field, and therefore the procedure was aborted. Patient healed well after the procedure, and was referred to me for reevaluation. Today she reports a burning pain on the right lateral head superior to the incision. She reports that has gotten better. She has not had any draining from the cystic region. Patient would like it removed if possible. She is not a smoker No personal or family history of bleeding or clotting problems. Patient does have a history of reportedly having thyroid cancer which was surgically removed by a partial thyroidectomy by an ear nose and throat physician. She reports that it was quite isolated and she did not require any further treatment other than resection. She did not have any lymph node sampling. She sees her ear nose and throat physician every February, and there have been no recent updates or problems with regards to her thyroid. Current Encounter (DATE OF SURGERY H&P UPDATE): I saw and examined the patient this morning in pre-operative holding. We discussed risks and benefits of today's surgery and they would like to proceed. NO CHANGE in health history since last seen and evaluated. Ready to proceed with surgery. [facility] Medical History Wears contact lenses Cancer Alcohol use History of IBS Heartburn Non-smoker Cardiology follow-up encounter Acute otitis media Arthritis History of hemorrhoids Home Medications ?Medication ?Instructions ?Recorded ?Last Taken ?Type hydroxychloroquine 200 mg tablet 200 mg PO DAILY 11/12 Unknown History (Plaquenil) cholecalciferol (vitamin D3) 125 125 mcg PO QDAY 07/07 Unknown History mcg (5,000 unit) capsule glucosamine HCl 500 mg tablet 500 mg PO QDAY 07/07/24 Unknown History norethindrone acetate 1.5 1 tab PO QDAY 07/07/24 Unkno wn History mg-ethinyl estradiol 30 mcg tablet (Chava) xkgrvxtz-ypuorw-vmp-rrx-mra-hohn-horse 1 tab PO DAILY 07/07/24 Unknown History 100 mg-100 mg-100 mg-125 mg tab (Tumersaid) ibuprofen 200 mg tablet (Advil) 400 mg PO Q8H PRN pain 10/19/24 Unknown History Allergy/AdvReac Type Severity Reaction Status Date / Time No Known Allergies Allergy Verified 11/09/24 10:35 Surgical History Hx of partial thyroidectomy Hx of laparoscopy Hx of arthroscopic knee surgery Hx of foot surgery Hx of hernia repair History of cholecystectomy Social History Smoking Status: Never smoker Vital Signs Vital Signs Vital Signs: 11/09/24 10:35 11/09/24 10:35 11/09/24 10:49 Temperature 97.8 F 97.8 F Temperature Source Temporal Pulse Rate 74 74 Respiratory Rate 18 18 Respiratory Pattern Normal Blood Pressure 132/86 H 132/86 H Blood Pressure Mean 101 Blood Pressure Source Monitor Blood Pressure Position Sitting Blood Pressure Location Left Arm Pulse Ox 100 100 Oxygen Delivery Method Room Air Room Air Weight Weight: 114 lb 10.246 oz Body Mass Index (BMI) 20.2 Physical Exam Narrative 2 cm incision on the right posterior scalp. Small mass under incision Healed well. No fluctuance or drainage No cervical lymphadenopathy on my exam. Scars are well-healed. No palpable thyroid masses. Results Lab / Micro Data Labs: Laboratory Results - last 24 hr 11/09/24 10:15: Urine Test Negative Assessment & Plan Assessment/Plan (1) Mass of head: PLAN: Plan I spoke to the patient extensively about the mass/cyst. We talked about options for removal in the operating room under general anesthesia. I told her that I could examine for nerves carefully while she is asleep, and if there is a nerve to repair I could repair it, but that it is unlikely that a peripheral nerve at this level could be repaired (nerves of arborized in general at this level) and her burning pain will likely improve over time. Patient is happy with the plan and would like it removed. To better characterize the cyst, I am obtaining an ultrasound. I talked her about the risks of bleeding, infection, fluid collections, wound healing complications, alopecia, further damage to surrounding structures including irritation of nerves and failure to obtain the desired result, neuroma, recurrence of the cyst/mass, need for repeat operations, and the risk of anesthesia including hypotension and DVT PE. Plan to excise under general anesthesia with primary closure. CPT codes for insurance prior authorization are as follows: 71992, 51568, 88502 INTERVAL H&P PLAN, DATE OF SURGERY: We will proceed with surgery today. I talked to the patient extensively about the risks of surgery, including bleeding, infection, damage to surrounding structures, poor scaring, surgical site dehiscence and wound formation, need for wound care, need for repeat operations, failure to obtain the desired result, DVT/PE, and the risks of anesthesia including , including stroke (from low blood pressure/ischemia or clot). The benefits and alternatives of this surgery were also discussed. All of their questions were answered, and they agreed to proceed with surgery. Plan to proceeed with excision and closure.
[2024-11-09] MEDS: Bupiv/Epi 0.25% 30 ML Vial (14:25)
[2024-11-09] MEDS: Bacitracin 500 UNITS/GM PACKET (14:26)
--- NOTE | 2024-11-09 14:53 | PCM.POST.ANE ---
Anesthesia: Postop Eval I Current Vital Signs Temperature: 97.9 F Pulse Rate: 89 Blood Pressure: 106/62 Respiratory Rate: 16 Pulse Ox: 100 Oxygen Delivery Method: Room Air Assessment Airway patent: Yes Spontaneous unlabored respirations: Yes Mental status: Awake and Calm nausea: No Vomiting: No Anesthesia Complication: No Fluid Hydration Crystalloid volume administer (ml): 1,100 Total IV fluid infused: 1,100 Progress Note Anesthesia document: Postop Eval 1 completed: Yes
--- NOTE | 2024-11-09 15:23 | POSTOPAN2_ITS ---
Anesthesia Postop Eval I Sum Postop Eval Completion status Anesthesia document: Postop Eval 1 completed: Yes Anesthesia Postop Eval I Summary Anesthesia Postop Eval I Summary: Anesthesia Postop Eval I: Assessment Summary Airway patent Yes 11/09/24 14:53 [email or web address] Spontaneous unlabored Yes 11/09/24 14:53 [email or web address] [email or web address] respirations Mental status Awake,Calm 11/09/24 14:53 [email or web address] [email or web address].[email or web address] nausea No 11/09/24 14:53 DIFFUSER OPERATOR.[email or web address] Vomiting No 11/09/24 14:53 DIFFUSER [email or web address] Anesthesia Postop Eval I: Fluid Summary Crystalloid volume administer 1,100 11/09/24 14:53 [email or web address] (ml) Colloids volume administered ( ml) Blood Product volume administered (ml) Total IV fluid infused 1,100 11/09/24 14:53 [email or web address] Anesthesia Postop Eval I: Summary Notes Anesthesia Complication No 11/09/24 14:53 [email or web address] Anesthesia Complication Comment: Post-operative progress note Anesthesia: Postop Eval II Evaluation Mental status: Awake and Calm Pain Level: 1 nausea: No Vomiting: No Complications Anesthesia Complication: No
--- NOTE | 2024-11-09 15:23 | PCM.POSTANE2 ---
Anesthesia Postop Eval I Sum Postop Eval Completion status Anesthesia document: Postop Eval 1 completed: Yes Anesthesia Postop Eval I Summary Anesthesia Postop Eval I Summary: Anesthesia Postop Eval I: Assessment Summary Airway patent Yes 11/09/24 14:53 CIVIL ENGINEER [email or web address] Spontaneous unlabored Yes 11/09/24 14:53 CIVIL ENGINEER [email or web address].[email or web address] respirations Mental status Awake,Calm 11/09/24 14:53 CIVIL ENGINEER [email or web address].[email or web address] nausea No 11/09/24 14:53 CIVIL ENGINEER HELPER.[email or web address] Vomiting No 11/09/24 14:53 CIVIL ENGINEER [email or web address].[email or web address] Anesthesia Postop Eval I: Fluid Summary Crystalloid volume administer 1,100 11/09/24 14:53 CIVIL ENGINEER [email or web address].[email or web address] (ml) Colloids volume administered ( ml) Blood Product volume administered (ml) Total IV fluid infused 1,100 11/09/24 14:53 CIVIL ENGINEER [email or web address].[email or web address] Anesthesia Postop Eval I: Summary Notes Anesthesia Complication No 11/09/24 14:53 CIVIL ENGINEER [email or web address].[email or web address] Anesthesia Complication Comment: Post-operative progress note Anesthesia: Postop Eval II Evaluation Mental status: Awake and Calm Pain Level: 1 nausea: No Vomiting: No Complications Anesthesia Complication: No
--- NOTE | 2024-11-10 13:42 | OP.PCM_ITS ---
Operative Report (Standard) Operative Information Date of Procedure: 11/09/24 Pre-Operative Diagnosis: Right scalp mass Post-Operative Diagnosis: Same Surgery/Procedure Performed: 1) Excision right scalp mass (consistent with lipoma) 1.5 x 1 cm (CPT: 54405) 2) Intermediate closure right scalp wound, 2 cm (CPT 95838) leadership program internship: No Type of Anesthesia: General/Supplemental (5 cc of quarter percent Marcaine with 1-200,000 epinephrine) RN Documented Start/Stop Times: Operation Date: 11/09/24 11:25 Case Time Into Pre-Op 11/09/24 10:14 Out of Pre-Op 11/09/24 13:31 Anesthesia Start 11/09/24 13:33 Into Room 11/09/24 13:33 Procedure Start 11/09/24 14:10 Procedure End 11/09/24 14:30 Anesthesia End 11/09/24 14:37 Out of Room 11/09/24 14:37 Into Recovery 11/09/24 14:42 Into Phase II Recovery 11/09/24 15:28 Out of Recovery 11/09/24 15:28 Out of Phase II 11/09/24 16:14 Procedure Start Time: 14:10 Procedure Stop Time: 14:30 Select all DRAINS/GRAFTS/IMPLANTS that apply: None Estimated Blood Loss: 10 cc Specimen collected: Yes Description of specimen(s) removed: Right posterior scalp mass Description of surgery: Indications: Patient is a 39-year-old woman who underwent attempted scalp mass excision in clinic with general surgery. She had severe irritation during the procedure and the procedure was aborted. She has since had some numbness as well as some areas of stinging pain on the right posterior scalp. The mass is immediately posterior and slightly superior to her right ear. She presents today for exci sabra and understands the risk benefits and alternatives to the procedure. Procedure details Patient was correct identified in preoperative holding and the area was marked. She agreed with the site marking. She is taken back to the operating room where she was administered general anesthesia and prepped and draped in sterile fashion in left lateral decubitus position. A proper timeout was performed. 15 blade scalpel was used to incise the skin of the scalp carefully and then careful dissection was taken down through the loose areolar plane with care taken to identify a nerve with a nerve dissector that was crossing from the occipital base region across the surgical field. It was isolated and dissection was then carefully taken beneath this nerve to the level of the mass which was identified as a 1.5 x 1 cm piece of fatty tissue at the base of the wound. It was excised circumferentially and sent to pathology. The wound was irrigated with copious amounts normal saline with care taken to protect the nerve. Hemostasis obtained with Bovie electrocautery. The wound was then closed in layers carefully with 3-0 PDS deep suture followed by genia. Patient tolerated the procedure well. She was awakened and taken to the PACU in stable condition. The total intermediate closure was 2 cm. Postoperative plan: Follow-up in 1 week for wound check and to review pathology Surgical Findings: Consistent with lipoma Identifiable nerve over region of previous dissection/scar that was intact (was overlying the lipoma and likely was irritated during for surgery with attempted removal of the mass in clinic with general surgery) Complications Complications: No Admit VTE Documentation VTE Mechan Device Prophylaxis: SCD's
== END 2024-11-09 16:14 | disposition home or self-care (01) ==
LOC: SDC 10:05 → AC 10:07
PROVIDERS: Anesthesiology; PCP Family Medicine; Referring Provider Surgery Plastic and Reconstructive Surgery; Visit Provider Surgery Plastic and Reconstructive Surgery
PROC: (CPT 21014; principal; 2024-11-09 11:10)
DX: D17.0 Benign lipomatous neoplasm of skin and subcutaneous tissue of head, face and neck (principal)
CPT/HCPCS: 21014; 00300; 81025; 88304; J2405